=== PATIENT | female | born 1945 | race Caucasian/White ===

== ENCOUNTER 2019-06-10 15:12 | Emergency (ER) | payer MEDICARE, OTHER ==
[~2019-06-10] VITALS: Ht 172.7 cm; Wt 109.1 kg
[2019-06-10] MEDS ORDERED: ACETAMINOPHEN 500 MG TAB (TYLENOL) PO ONE (15:45)
--- NOTE | 2019-06-10 15:47 | Diagnostic Imaging Report ---
INDICATION: Fall with left wrist pain. TIME OF EXAM: 3:20 p.m. FINDINGS: Three views of the left wrist were obtained. There is a fracture extending through the styloid of the distal radius. Fracture line extends into the articular surface of the radiocarpal joint. Distal ulna is intact. Carpus and metacarpals are intact. IMPRESSION: Radial styloid fracture with intra-articular extension. Dictated by: Dictated on workstation # [id number]
--- NOTE | 2019-06-10 16:04 | ED Upper Extremity ---
General Chief Complaint: Upper Extremity Stated Complaint: FALL; LT WRIST INJ Nursing Triage Note: Patient reports she was carrying her great-grandchild up steps to a house when she slipped and fell, landing on her left wrist. Superficial scrapes present to right arm and left knee, patient states she cannot remember the date of her last tetanus shot. Nursing Sepsis Screen: No Definite Risk Source: patient Exam Limitations: no limitations History of Present Illness Date Seen by Provider: Jun 10, 2019 Time Seen by Provider: 15:20 Initial Comments The patient is a pleasant 73-year-old female presents for evaluation of a left wrist injury. She states that she was carrying her great-grandchild upstairs to the front of a house when she slipped and landed on the left wrist. Fortunately the child is okay. She does have some superficial abrasions but no laceration. Her pain is primarily on the thumb side of the wrist. She is able to flex and extend but has some discomfort when doing so with the wrist. She denies any other injuries or complaints and did not hit her head or lose consciousness. She is alert and oriented 4, calm, and appears to be in no distress this time. Onset: just prior to arrival Severity: moderate Pain/Injury Location: left wrist Method of Injury: fell Modifying Factors: Improves With Cold Therapy (makes it better), Improves With Movement (makes it worse) Allergies and Home Medications Allergies Coded Allergies: Penicillins (Verified Allergy, Unknown, 06/10/19) adhesive tape (Verified Allergy, Unknown, 06/10/19) amoxicillin (Verified Allergy, Unknown, 06/10/19) celecoxib (Verified Allergy, Unknown, 06/10/19) dapsone (Verified Allergy, Unknown, 06/10/19) succinylcholine (Verified Allergy, Unknown, 06/10/19) Patient Home Medication List Home Medication List Reviewed: Yes Review of Systems Constitutional: no symptoms reported EENTM: no symptoms reported Respiratory: no symptoms reported Cardiovascular: no symptoms reported Gastrointestinal: no symptoms reported Genitourinary: no symptoms reported Musculoskeletal: joint pain (left wrist) Skin: no symptoms reported Psychiatric/Neurological: No Symptoms Reported All Other Systems Reviewed Negative Unless Noted: Yes Past Jilkugy-Itudnc-Ibkreb Hx Patient Social History Alcohol Use: Denies Use Recreational Drug Use: No Smoking Status: Never a Smoker 2nd Hand Smoke Exposure: No Recent Foreign Travel: No Contact w/Someone Who Travel: No Recent Infectious Disease Expo: No Recent Hopitalizations: No Physical Abuse: No Sexual Abuse: No Mistreated: No Fear: No Immunizations Up To Date Tetanus Booster (TDap): More than 5yrs Seasonal Allergies Seasonal Allergies: No Past Medical History Surgeries: Yes (bilateral knee replacements, carpal tunnel) Hysterectomy, Orthopedic Respiratory: No Cardiac: Yes (CHF) 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 oz. kg; 36.00 BMI Method: General Appearance: WD/WN, no apparent distress HEENT: PERRL/EOMI, pharynx normal Neck: non-tender, full range of motion, supple, normal inspection Cardiovascular: regular rate, rhythm, no edema, no JVD Respiratory: chest non-tender, lungs clear, normal breath sounds, no respiratory distress Back: normal inspection, no CVA tenderness, no vertebral tenderness Shoulder: normal inspection, non-tender, no evidence of injury, normal ROM Elbow/Forearm: normal inspection, non-tender, no evidence of injury, normal ROM, Right, Left Wrist: Yes bone tenderness (over right dorsal radial-side of wrist, no deformity or dislocation seen, no significant swelling or bruising is noted, full range of motion is present with some discomfort, CMS intact distally) Hand: normal inspection, non-tender, no evidence of injury, normal ROM 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, no motor/sensory deficits, alert, normal mood/affect, oriented x 3 Skin: normal color, warm/dry Progress/Results/Core Measures Results/Orders My Orders Orders - RAMONA MARY DO Wrist 3 View Left (06/10/19 15:32) Ice: Apply To Affected Area (06/10/19 15:32) Acetaminophen Tablet (Tylenol Tablet) (06/10/19 15:45) Vital Signs/I&O 06/10/19 15:15 Temp 36.8 Pulse 63 Resp 20 B/P (MAP) 156/90 (112) Pulse Ox 95 O2 Delivery Room Air Blood Pressure Mean: 112 POS Progress Progress Note : Progress Note @1600 - patient informed of x-ray results which show an intra-articular distal radial fracture without any significant displacement and spica splint will be given orthopedics for follow-up with Dr. Barney. Advised patient to follow up with him in the next 1-2 days. The patient will go home with a prescription for [place] as needed for pain relief. She has 2 return to the emergency Department immediately for new or worsening symptoms. The patient expresses verbal understanding and agreement with the plan and is stable for discharge at this time. Diagnostic Imaging Diagonstic Imaging: Xray Comments [facility]. [place], [place] POS NAME: NOEMÍ MASTERSON [facility] REC#: [id number] PT STATUS: REG ER : 1945 PHYSICIAN: RAMONA MARY DO ADMIT DATE: 06/10/19/ER FS Draft POSDate of Exam:06/10/19 WRIST 3 VIEW LEFT INDICATION: Fall with left wrist pain. TIME OF EXAM: 3:20 p.m. FINDINGS: Three views of the left wrist were obtained. There is a fracture extending through the styloid of the distal radius. Fracture line extends into the articular surface of the radiocarpal joint. Distal ulna is intact. Carpus and metacarpals are intact. IMPRESSION: Radial styloid fracture with intra-articular extension. Dictated on workstation # [id number] Dict: 06/10/19 1545 Trans: 06/10/19 1547 [id number] Interpreted by: SAAD JOHNSTON MD Electronically signed by: Departure Impression Primary Impression: Distal radius fracture, left Disposition: 01 HOME, SELF-CARE Condition: Stable Departure-Patient Inst. Decision time for Depature: 16:08 Referrals: DEMETRIA VANN MD (PCP/Family) Primary Care Physician Patient Instructions: Wrist Fracture (DC), Radius Fracture (DC) Add. Discharge Instructions: Follow-up with Dr. Barney from orthopedics in the next 1-2 days. Wear the splint provided for comfort and to protect the injury. Return to the emergency Department immediately for new or worsening symptoms. Take the prescribed medicine as directed, as needed for pain relief. Scripts Hydrocodone Bit/Acetaminophen (Hydrocodone/Acetaminophen 5/325mg Tablet) 1 Tab Tab 1-2 EACH PO Q6H PRN for PAIN-MODERATE MDD 10 for 4 Days, #12 TAB 0 Refills Prov: RAMONA MARY DO 06/10/19 RAMONA MARY DO Jun 10, 2019 16:04 POS
[2019-06-10] MEDS ORDERED: ACHD5005 PO (16:10)
[2019-06-10 16:21] VITALS: BP 156/90
== END 2019-06-10 16:25 | disposition home or self-care (01) ==
LOC: ER FS 15:14
DX: S52.502A Unspecified fracture of the lower end of left radius, initial encounter for closed fracture (principal); I11.0 Hypertensive heart disease with heart failure; I50.9 Heart failure, unspecified; Z88.0 Allergy status to penicillin; Z88.8 Allergy status to other drugs, medicaments and biological substances; Z96.653 Presence of artificial knee joint, bilateral; Z88.6 Allergy status to analgesic agent; Z90.710 Acquired absence of both cervix and uterus; W01.0XXA Fall on same level from slipping, tripping and stumbling without subsequent striking against object, initial encounter
CPT/HCPCS: 73110

== ENCOUNTER → 2019-09-23 | Outpatient (CLI) | payer MEDICARE ==
[~2019-09-23] MED LIST: ACHD5005 PO
[2019-09-23 08:49] LABS: HEMOGLOBIN 12.7 G/DL (11.5-16.0); MEAN CORPUSCULAR HEMOGLOBIN 31 PG (25-34); WHITE BLOOD COUNT 6.1 10^3/uL (4.3-11.0)
[2019-09-23 08:50] LABS: BASOPHILS % (AUTO) 1 % (0-10); EOSINOPHILS # (AUTO) 0.1 10^3/uL (0.0-0.3); EOSINOPHILS % (AUTO) 2 % (0-10); HEMATOCRIT 39 % (35-52); LYMPHOCYTES # (AUTO) 1.6 X 10^3 (1.0-4.0); LYMPHOCYTES % (AUTO) 26 % (12-44); MEAN CORPUSCULAR HGB CONC 32 G/DL (32-36); MEAN CORPUSCULAR VOLUME 97 FL (80-99); MEAN PLATELET VOLUME 11.3 FL (7.4-10.4); MONOCYTES # (AUTO) 0.4 X 10^3 (0.0-1.0); MONOCYTES % (AUTO) 7 % (0-12); NEUTROPHILS # (AUTO) 3.9 X 10^3 (1.8-7.8); NEUTROPHILS % (AUTO) 64 % (42-75); PLATELET COUNT 142 10^3/uL (130-400); RED CELL DISTRIBUTION WIDTH 13.8 % (10.0-14.5)
[2019-09-23 09:07] LABS: SODIUM 142 MMOL/L (135-145)
[2019-09-23 09:08] LABS: ALANINE AMINOTRANSFERASE 10 U/L (0-55); ALBUMIN 4.3 GM/DL (3.2-4.5); ALKALINE PHOSPHATASE 65 U/L (40-136); BILIRUBIN,TOTAL 0.3 MG/DL (0.1-1.0); BUN/CREATININE RATIO 26; CALCIUM 9.7 MG/DL (8.5-10.1); CARBON DIOXIDE 28 MMOL/L (21-32); CHLORIDE 104 MMOL/L (98-107); CREATININE SERUM 0.88 MG/DL (0.60-1.30); GFR ESTIMATED > 60; GLUCOSE 97 MG/DL (70-105); POTASSIUM 4.7 MMOL/L (3.6-5.0); TOTAL PROTEIN 6.9 GM/DL (6.4-8.2)
[2019-09-23 15:39] LABS: CHOLESTEROL 165 MG/DL (< 200); HDL CHOLESTEROL 53 MG/DL (40-60); TRIGLYCERIDES 93 MG/DL (<150); VLDL CHOLESTEROL 19 MG/DL (5-40)
== END ==
LOC: LAB FS 08:23
PROVIDERS: ATTEND Family Medicine
DX: D64.9 Anemia, unspecified (principal); I10 Essential (primary) hypertension
CPT/HCPCS: 36415; 80053; 80061; 85025

== ENCOUNTER → 2020-03-31 | Outpatient (CLI) | payer MEDICARE ==
[2020-03-31 10:01] LABS: ALBUMIN 4.2 GM/DL (3.2-4.5); BILIRUBIN,TOTAL 0.3 MG/DL (0.1-1.0); CALCIUM 9.8 MG/DL (8.5-10.1); CREATININE SERUM 0.93 MG/DL (0.60-1.30); POTASSIUM 4.6 MMOL/L (3.6-5.0); TOTAL PROTEIN 6.5 GM/DL (6.4-8.2)
== END ==
LOC: LAB FS 09:18
PROVIDERS: ATTEND Family Medicine
DX: I10 Essential (primary) hypertension (principal)
CPT/HCPCS: 36415; 80053; 80061

== ENCOUNTER → 2020-12-29 | Outpatient (CLI) | payer MEDICARE ==
[2020-12-29 09:31] LABS: ALANINE AMINOTRANSFERASE 12 U/L (0-55); ALBUMIN 4.1 GM/DL (3.2-4.5); ALKALINE PHOSPHATASE 63 U/L (40-136); BILIRUBIN,TOTAL 0.2 MG/DL (0.1-1.0); BUN/CREATININE RATIO 18; CALCIUM 9.2 MG/DL (8.5-10.1); CARBON DIOXIDE 24 MMOL/L (21-32); CHLORIDE 110 MMOL/L (98-107); CREATININE SERUM 0.89 MG/DL (0.60-1.30); GFR ESTIMATED > 60; GLUCOSE 96 MG/DL (70-105); POTASSIUM 3.9 MMOL/L (3.6-5.0); SODIUM 145 MMOL/L (135-145); TOTAL PROTEIN 6.4 GM/DL (6.4-8.2)
[2020-12-29 10:06] LABS: BASOPHILS % (AUTO) 0 % (0-10); EOSINOPHILS % (AUTO) 3 % (0-10); HEMATOCRIT 30 % (35-52); HEMOGLOBIN 8.9 G/DL (11.5-16.0); LYMPHOCYTES % (AUTO) 24 % (12-44); MEAN CORPUSCULAR HEMOGLOBIN 26 PG (25-34); MEAN CORPUSCULAR HGB CONC 30 G/DL (32-36); MEAN CORPUSCULAR VOLUME 87 FL (80-99); MEAN PLATELET VOLUME 11.6 FL (7.4-10.4); MONOCYTES % (AUTO) 8 % (0-12); NEUTROPHILS % (AUTO) 64 % (42-75); PLATELET COUNT 162 10^3/uL (130-400); WHITE BLOOD COUNT 5.5 10^3/uL (4.3-11.0)
[2020-12-29 10:07] LABS: EOSINOPHILS # (AUTO) 0.2 10^3/uL (0.0-0.3); LYMPHOCYTES # (AUTO) 1.3 X 10^3 (1.0-4.0); MONOCYTES # (AUTO) 0.5 X 10^3 (0.0-1.0); NEUTROPHILS # (AUTO) 3.5 X 10^3 (1.8-7.8)
[2020-12-29 10:08] LABS: SMEAR SCAN COMMENT OK
[2020-12-29 14:51] LABS: CHOLESTEROL 102 MG/DL (< 200); HDL CHOLESTEROL 45 MG/DL (40-60); TRIGLYCERIDES 68 MG/DL (<150); VLDL CHOLESTEROL 14 MG/DL (5-40)
== END ==
LOC: LAB FS 08:24
PROVIDERS: ATTEND Family Medicine
DX: I10 Essential (primary) hypertension (principal); D64.9 Anemia, unspecified
CPT/HCPCS: 36415; 80053; 80061; 85025

== ENCOUNTER → 2021-05-23 | Outpatient (CLI) | payer MEDICARE ==
[~2021-05-23] MED LIST changes: +ACETAMINOPHEN 500 MG TAB (TYLENOL) PO PRN; +CASIRIVIMAB/IMDEVIMAB 1,200 MG in NS (IVPB) 250 ML IV ONE; +EPINEPHrine INJECTION 1 MG/ML AMP IM PRN; +ONDANSETRON 4 MG/2 ML (SDV) Z0FRAN IV PRN; +diphenhydrAMINE 50 MG/ML INJ (BENADRYL) IV PRN
[2021-05-23 11:58] VITALS: BP 138/113
[2021-05-23 13:36] VITALS: BP 110/77
== END ==
LOC: INFUSION 11:57
PROVIDERS: ATTEND Nurse Practitioner Family
DX: U07.1 COVID-19 (principal)

== ENCOUNTER → 2021-07-01 | Outpatient (CLI) | payer MEDICARE ==
[~2021-07-01] MED LIST changes: -ACETAMINOPHEN 500 MG TAB (TYLENOL) PO PRN; -CASIRIVIMAB/IMDEVIMAB 1,200 MG in NS (IVPB) 250 ML IV ONE; -EPINEPHrine INJECTION 1 MG/ML AMP IM PRN; -ONDANSETRON 4 MG/2 ML (SDV) Z0FRAN IV PRN; -diphenhydrAMINE 50 MG/ML INJ (BENADRYL) IV PRN
[2021-07-01 10:07] LABS: HEMATOCRIT 41 % (35-52); HEMOGLOBIN 13.4 g/dL (11.5-16.0); MEAN CORPUSCULAR HEMOGLOBIN 32 pg (25-34); MEAN CORPUSCULAR HGB CONC 32 g/dL (32-36); MEAN CORPUSCULAR VOLUME 99 fL (80-99); WHITE BLOOD COUNT 5.9 10^3/uL (4.3-11.0)
[2021-07-01 10:08] LABS: BASOPHILS % (AUTO) 1 % (0-10); EOSINOPHILS % (AUTO) 2 % (0-10); LYMPHOCYTES % (AUTO) 27 % (12-44); MEAN PLATELET VOLUME 12.1 fL (9.0-12.2); MONOCYTES % (AUTO) 8 % (0-12); NEUTROPHILS % (AUTO) 63 % (42-75); PLATELET COUNT 130 10^3/uL (130-400)
[2021-07-01 10:09] LABS: EOSINOPHILS # (AUTO) 0.1 10^3/uL (0.0-0.3); LYMPHOCYTES # (AUTO) 1.6 X 10^3 (1.0-4.0); MONOCYTES # (AUTO) 0.5 X 10^3 (0.0-1.0); NEUTROPHILS # (AUTO) 3.7 X 10^3 (1.8-7.8)
[2021-07-01 10:37] LABS: POTASSIUM 4.4 MMOL/L (3.6-5.0)
[2021-07-01 10:38] LABS: ALBUMIN 4.2 GM/DL (3.2-4.5); BILIRUBIN,TOTAL 0.5 MG/DL (0.1-1.0); CALCIUM 9.8 MG/DL (8.5-10.1); CREATININE SERUM 0.86 MG/DL (0.60-1.30)
[2021-07-01 14:57] LABS: CHOLESTEROL 191 MG/DL (< 200); HDL CHOLESTEROL 54 MG/DL (40-60); TRIGLYCERIDES 117 MG/DL (<150); VLDL CHOLESTEROL 23 MG/DL (5-40)
== END ==
LOC: LAB FS 09:02
PROVIDERS: ATTEND Family Medicine
DX: I10 Essential (primary) hypertension (principal); D64.9 Anemia, unspecified
CPT/HCPCS: 36415; 80053; 80061; 85025

== ENCOUNTER → 2021-10-20 | Outpatient (CLI) | payer MEDICARE | LOC: LAB FS 10:49 | PROVIDERS: ATTEND Family Medicine | DX: Z00.00 Encounter for general adult medical examination without abnormal findings (principal); M25.50 Pain in unspecified joint; M32.9 Systemic lupus erythematosus, unspecified; M10.9 Gout, unspecified; M21.969 Unspecified acquired deformity of unspecified lower leg | CPT/HCPCS: 36415; 84550; 86038; 86200 ==

== ENCOUNTER → 2021-12-01 | Outpatient (CLI) | payer MEDICARE ==
--- NOTE | 2021-12-01 11:38 | Diagnostic Imaging Report ---
INDICATION: Pain EXAMINATION: Left shoulder 12/01/2021 FINDINGS: 3 views of the shoulder. There is irregularity spurring and sclerosis at the greater tuberosity consistent with tricuspid adenopathy. Narrowing and spurring at the acromioclavicular joint is also noted. There are no fractures or dislocations. The visualized left lung is clear IMPRESSION: 1. Chronic findings with no acute osseous abnormality. Dictated by: Dictated on workstation # [id number]
== END ==
LOC: RAD FS 10:52
PROVIDERS: ATTEND Registered Nurse Emergency
DX: M25.512 Pain in left shoulder (principal)
CPT/HCPCS: 73030

== ENCOUNTER → 2022-01-03 | Outpatient (CLI) | payer MEDICARE ==
[2022-01-03 11:57] LABS: ALBUMIN 4.2 GM/DL (3.2-4.5); BILIRUBIN,TOTAL 0.4 MG/DL (0.1-1.0); CALCIUM 9.9 MG/DL (8.5-10.1); CREATININE SERUM 0.88 MG/DL (0.60-1.30); POTASSIUM 4.6 MMOL/L (3.6-5.0); TOTAL PROTEIN 6.7 GM/DL (6.4-8.2)
[2022-01-03 13:55] LABS: URIC ACID 5.8 MG/DL (2.6-7.2)
== END ==
LOC: LAB FS 09:06
PROVIDERS: ATTEND Family Medicine
DX: E78.5 Hyperlipidemia, unspecified (principal); I10 Essential (primary) hypertension; M10.9 Gout, unspecified; M25.512 Pain in left shoulder
CPT/HCPCS: 36415; 80053; 80061; 84550

== ENCOUNTER → 2022-01-19 | Outpatient (CLI) | payer MEDICARE | LOC: ORTHO 15:31 | PROVIDERS: ATTEND Orthopaedic Surgery | DX: M75.102 Unspecified rotator cuff tear or rupture of left shoulder, not specified as traumatic (principal) ==

== ENCOUNTER → 2022-01-31 | Outpatient (CLI) | payer MEDICARE ==
--- NOTE | 2022-01-31 11:21 | Diagnostic Imaging Report ---
MRI LT UPPER EXT JOINT W/O TECHNIQUE: Multiplanar, multisequence MR imaging of the left shoulder was performed without contrast. COMPARISON: Left shoulder radiographs from 12/01/2021. INDICATION: Left shoulder pain. FINDINGS: Rotator cuff: Full-thickness and complete tears are present in the supraspinatus and infraspinatus and both have proximal stump retracted to the level of the glenohumeral joint. Severe fatty infiltration throughout the supraspinatus and infraspinatus is present. Teres minor remains intact and normal in bulk. The subscapularis is also intact with mild tendinopathy, but no atrophy. Glenoid labrum: Free edge truncation in the superior and posterior labrum is likely due to degenerative tearing. No paralabral cyst. Long head of biceps: Long head of biceps is normally positioned within the bicipital groove. The intracapsular segment is intact. Bones and cartilage: High-riding humeral head due to chronic superior rotator cuff tear. Glenohumeral articular cartilage is fairly well preserved. Mild AC joint osteoarthritis. Soft tissues: Small glenohumeral joint effusion. No MRI findings to suggest adhesive capsulitis. Fluid in the subacromion and subdeltoid space is expected with full-thickness rotator cuff tear. IMPRESSION: 1. Full-thickness and complete tears of both the supraspinatus and infraspinatus have the proximal stumps retracted to the level of the glenohumeral joint and there is severe muscle belly atrophy. 2. Long head of biceps remains intact. 3. High-riding humeral head due to chronic superior rotator cuff tear. 4. Degenerative truncation in the superior labrum. Dictated by: Dictated on workstation # [id number]
== END ==
LOC: RAD 07:57
PROVIDERS: ATTEND Orthopaedic Surgery
DX: M75.122 Complete rotator cuff tear or rupture of left shoulder, not specified as traumatic (principal); S46.812A Strain of other muscles, fascia and tendons at shoulder and upper arm level, left arm, initial encounter; M19.012 Primary osteoarthritis, left shoulder; X58.XXXA Exposure to other specified factors, initial encounter
CPT/HCPCS: 73221

== ENCOUNTER 2022-03-28 06:57 | Inpatient (IN) | payer MEDICARE ==
[~2022-03-28] VITALS: Ht 167.7 cm; Wt 117.4 kg
[2022-03-28] VITALS (15 sets, daily range): BP systolic 104–146; BP diastolic 57–92
--- NOTE | 2022-03-28 07:19 | ED Dyspnea ---
General Stated Complaint: SOB History of Present Illness Date Seen by Provider: Mar 28, 2022 Time Seen by Provider: 07:05 Initial Comments 76-year-old female with PMH of atrial fibrillation/CHF/CAD/COPD, is brought in by EMS with complaints of increasing shortness of breath which began about 1 or 2 days ago. Patient had a left shoulder replacement last week, and has slowly become more mobile. Denies cough, fever, chest pain, palpitation, abdominal pain, nausea and vomiting, diarrhea. No known sick contacts. Patient has not been taking her Lasix for the past 1 week after surgery, since she did not want to keep getting up to urinate. Allergies and Home Medications Allergies Coded Allergies: Penicillins (Verified Allergy, Unknown, 06/10/19) adhesive tape (Verified Allergy, Unknown, 06/10/19) amoxicillin (Verified Allergy, Unknown, 06/10/19) celecoxib (Verified Allergy, Unknown, 06/10/19) dapsone (Verified Allergy, Unknown, 06/10/19) succinylcholine (Verified Allergy, Unknown, 06/10/19) Patient Home Medication List Home Medication List Reviewed: Yes Hydrocodone Bit/Acetaminophen (Lortab 5 Mg Tablet) 1 Tab Tab, 1-2 EACH PO Q6H PRN for PAIN-MODERATE Prescribed by: RAMONA MARY on 06/10/19 1610 Review of Systems Review of Systems Constitutional: no symptoms reported EENTM: no symptoms reported Respiratory: short of breath Cardiovascular: no symptoms reported Gastrointestinal: no symptoms reported Genitourinary: no symptoms reported Musculoskeletal: no symptoms reported Skin: no symptoms reported Psychiatric/Neurological: No Symptoms Reported Endocrine: No Symptoms Reported Hematologic/Lymphatic: No Symptoms Reported Past Qgxozfy-Svvsaf-Uiudep Hx Immunizations Up To Date Tetanus Booster (TDap): More than 5yrs Seasonal Allergies Seasonal Allergies: No Past Medical History Surgeries: Yes (bilateral knee replacements, carpal tunnel) Hysterectomy, Orthopedic Respiratory: No 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 oz. kg; 36.00 BMI Method: General Appearance: No Apparent Distress, WD/WN HEENT: PERRL/EOMI Neck: Full Range of Motion Respiratory: Chest Non Tender, Lungs Clear, Normal Breath Sounds, No Accessory Muscle Use, No Respiratory Distress Cardiovascular: Regular Rate, Rhythm, No Edema Gastrointestinal: Normal Bowel Sounds, Non Tender, Soft Neurologic/Psychiatric: Alert, Oriented x3, Normal Mood/Affect Skin: Normal Color Focused Exam Lactate Level 03/28/22 07:27: Lactic Acid Level 1.09 Lactic Acid Level Laboratory Tests Test 03/28/22 07:27 Lactic Acid Level 1.09 MMOL/L (0.50-2.00) Progress/Results/Core Measures Results/Orders Lab Results Laboratory Tests Test 03/28/22 07:15 03/28/22 07:27 03/28/22 07:29 03/28/22 08:34 Range/Units White Blood Count 11.9 H 4.3-11.0 10^3/uL Red Blood Count 3.41 L 3.80-5.11 10^6/uL Hemoglobin 10.9 L 11.5-16.0 g/dL Hematocrit 33 L 35-52 % Mean Corpuscular Volume 97 80-99 fL Mean Corpuscular Hemoglobin 32 25-34 pg Mean Corpuscular Hemoglobin Concent 33 32-36 g/dL Red Cell Distribution Width 14.1 10.0-14.5 % Platelet Count 208 130-400 10^3/uL Mean Platelet Volume 10.9 9.0-12.2 fL Immature Granulocyte % (Auto) 0 % Neutrophils (%) (Auto) 85 H 42-75 % Lymphocytes (%) (Auto) 9 L 12-44 % Monocytes (%) (Auto) 5 0-12 % Eosinophils (%) (Auto) 1 0-10 % Basophils (%) (Auto) 0 0-10 % Neutrophils # (Auto) 10.1 H 1.8-7.8 10^3/uL Lymphocytes # (Auto) 1.1 1.0-4.0 10^3/uL Monocytes # (Auto) 0.6 0.0-1.0 10^3/uL Eosinophils # (Auto) 0.1 0.0-0.3 10^3/uL Basophils # (Auto) 0.0 0.0-0.1 10^3/uL Immature Granulocyte # (Auto) 0.1 0.0-0.1 10^3/uL Prothrombin Time 13.1 12.2-14.7 SEC INR Comment 1.0 0.8-1.4 Activated Partial Thromboplast Time 26 24-35 SEC D-Dimer 3.53 H 0.00-0.49 UG/ML Sodium Level 139 135-145 MMOL/L Potassium Level 4.7 3.6-5.0 MMOL/L Chloride Level 102 98-107 MMOL/L Carbon Dioxide Level 28 21-32 MMOL/L Anion Gap 9 5-14 MMOL/L Blood Urea Nitrogen 18 7-18 MG/DL Creatinine 0.82 0.60-1.30 MG/DL Estimat Glomerular Filtration Rate 75 BUN/Creatinine Ratio 22 Glucose Level 120 H 70-105 MG/DL Calcium Level 9.7 8.5-10.1 MG/DL Corrected Calcium 10.0 8.5-10.1 MG/DL Magnesium Level 1.6 1.6-2.4 MG/DL Total Bilirubin 0.6 0.1-1.0 MG/DL Aspartate Amino Transf (AST/SGOT) 15 5-34 U/L Alanine Aminotransferase (ALT/SGPT) 12 0-55 U/L Alkaline Phosphatase 83 40-136 U/L Troponin I < 0.30 <0.30 NG/ML Pro-B-Type Natriuretic Peptide 3601.0 H <450.0 PG/ML Total Protein 6.3 L 6.4-8.2 GM/DL Albumin 3.6 3.2-4.5 GM/DL Lactic Acid Level 1.09 0.50-2.00 MMOL/L Influenza Type A (RT-PCR) Not Detected Not Detecte Influenza Type B (RT-PCR) Not Detected Not Detecte SARS-CoV-2 RNA (RT-PCR) Not Detected Not Detecte Urine Color YELLOW Urine Clarity CLEAR Urine pH 7.0 5-9 Urine Specific [place] 1.015 L 1.016-1.022 Urine Protein NEGATIVE NEGATIVE Urine Glucose (UA) NEGATIVE NEGATIVE Urine Ketones NEGATIVE NEGATIVE Urine Nitrite NEGATIVE NEGATIVE Urine Bilirubin NEGATIVE NEGATIVE Urine Urobilinogen 0.2 < = 1.0 MG/DL Urine Leukocyte Esterase NEGATIVE NEGATIVE Urine RBC (Auto) NEGATIVE NEGATIVE Urine RBC NONE /HPF Urine WBC NONE /HPF Urine Squamous Epithelial Cells 0-2 /HPF Urine Crystals NONE /LPF Urine Bacteria NEGATIVE /HPF Urine Casts NONE /LPF Urine Mucus NEGATIVE /LPF Urine Culture Indicated NO My Orders Orders - ZAIRA MIXON MD Chest 1 View Ap/Pa Only (03/28/22 07:19) Ekg Tracing (03/28/22 07:20) Continuous Ekg Monitoring (03/28/22 07:20) Cbc With Automated Diff (03/28/22 07:20) Comprehensive Metabolic Panel (03/28/22 07:20) Fibrin Degradation Products (03/28/22 07:20) Lactic Acid Analyzer (03/28/22 07:20) Magnesium (03/28/22 07:20) Procalcitonin (Pct) (03/28/22 07:20) Protime With Inr (03/28/22 07:20) Partial Thromboplastin Time (03/28/22 07:20) Ua Culture If Indicated (03/28/22 07:20) Probnp Fs (03/28/22 07:20) Troponin I Fs (03/28/22 07:20) Covid 19 Inhouse Test (03/28/22 07:21) Influenza A And B By Pcr (03/28/22 07:21) Albuterol/Ipra Inhalation Soln (Duoneb I (03/28/22 07:30) Methylprednisolone Sod Succ (Solu-Medrol (03/28/22 07:22) Svn Small Volume Nebulizer (03/28/22 07:22) Furosemide Injection (Lasix Injection) (03/28/22 07:45) Ondansetron Injection (Zofran Injectio (03/28/22 07:59) Ct Angio Chest W (03/28/22 08:07) Iohexol Injection (Omnipaque 350 Mg/Ml 1 (03/28/22 08:15) Received Contrast (Hold Metformin- Contr (03/28/22 08:15) Ns (Ivpb) (Sodium Chloride 0.9% Ivpb Bag (03/28/22 08:15) Sodium Chloride Flush (Catheter Flush Sy (03/28/22 08:15) Furosemide Injection (Lasix Injection) (03/28/22 09:00) Catheter(Urinary) Insert & Ass 03,15 (03/28/22 09:43) Ed Admission (Communication) (03/28/22 09:49) Medications Given in ED Current Medications Medications Dose Ordered Sig/Sherly Route Start Time Stop Time Status Last Admin Dose Admin Albuterol/ Ipratropium 3 ml ONCE ONCE INH 03/28/22 07:30 03/28/22 07:31 DC 03/28/22 07:35 3 ML Furosemide 20 mg ONCE ONCE IVP 03/28/22 09:00 03/28/22 09:01 DC 03/28/22 09:00 20 MG Furosemide 60 mg ONCE ONCE IVP 03/28/22 07:45 03/28/22 07:47 DC 03/28/22 08:01 60 MG Iohexol 125 ml ONCE ONCE IV 03/28/22 08:15 03/28/22 08:16 DC 03/28/22 08:54 125 ML Ondansetron HCl 4 mg STK-MED ONCE .ROUTE 03/28/22 07:59 03/28/22 08:03 DC 03/28/22 08:05 4 MG Sodium Chloride 10 ml NEEDED PRN IV 03/28/22 08:15 03/28/22 08:54 10 ML Sodium Chloride 100 ml ONCE ONCE IV 03/28/22 08:15 03/28/22 08:16 DC 03/28/22 08:55 80 ML Vital Signs/I&O 03/28/22 07:00 Temp 36.8 Pulse 89 Resp 23 B/P (MAP) 152/86 (108) Pulse Ox 93 O2 Delivery Room Air Progress Progress Note : Progress Note 1. PULMONARY EDEMA/ ACUTE CHF EXACERBATION: - CXR: see report - CBC/ CMP - UA neg - Duo Neb/ Solumedrol 125mg iv given initially upon presentation to ER - Lasix, total of 80mg iv given, serum albumin normal, with good urine output as a result - Pt lives at home with her who has dementia, and has not been taking her Lasix for the past 1 week due to having shoulder surgery last week, and she did not want to keep going to the bathroom. Explained to pt, the importance of taking Lasix as prescribed. Will benefit from admission to observation for d iuresis and cardiology consult 2. ELEVATED D-DIMER - D-dimer is 3.53 - CTA CHEST: - Negative for PE Diagnostic Imaging Diagonstic Imaging: Xray, CT Plain Films/CT/US/NM/MRI: chest Comments [facility]. [place], [place] NAME: NOEMÍ MASTERSON [facility] REC#: [id number] PT STATUS: REG ER : 1945 PHYSICIAN: ZAIRA MIXON MD ADMIT DATE: 03/28/22/ER FS Draft Date of Exam:03/28/22 CT ANGIO CHEST W EXAMINATION: CT angiography of the chest. TECHNIQUE: Contrast enhanced thin section helical images were obtained through the chest with intravenous contrast timed for the optimal opacification of the arterial structures per CTA protocol. Post-processing, reconstructions and interpretation of angiographic images of the vessels was performed. 3D MIP reconstructions were performed and reviewed. All CT scans use one or more of the following dose optimizing techniques: automated exposure control, MA and/or KvP adjustment based on a patient size and exam type, or iterative reconstruction. HISTORY: Recent surgery with shortness of breath and elevated D-dimer COMPARISON: None available. FINDINGS: There is no pulmonary embolism. There is moderate pulmonary edema. There is septal line thickening and centrilobular groundglass. There are small bilateral pleural effusions. No pneumothorax. No suspicious nodules. There is no axillary or supraclavicular lymphadenopathy. There is no mediastinal lymphadenopathy. There is a small hiatal hernia. Heart size is normal. There are no coronary artery calcifications. No pericardial effusion. Aorta is normal in caliber. Limited views of the upper abdomen are unremarkable. There are no suspicious osseus lesions. Postsurgical changes of a recent left shoulder arthroplasty. IMPRESSION: 1. No pulmonary embolism. 2. Moderate pulmonary edema and small bilateral pleural effusions. Dictated on workstation # [id number] Dict: 03/28/22 0902 Trans: 03/28/22 0907 CV [id number] Interpreted by: SCOUT BISWAS MD Electronically signed by: Departure Communication (Admissions) Time/Spoke to Admitting Phy: 09:[address] Rico and accepted for admission to observation unit Impression Primary Impression: Acute exacerbation of CHF (congestive heart failure) Qualified Codes: I50.9 - Heart failure, unspecified Additional Impression: Pulmonary edema cardiac cause Disposition: 30 STILL A PATIENT Condition: Stable Admissions Decision to Admit Reason: Admit from ER (General) Decision to Admit/Date: Mar 28, 2022 Time/Decision to Admit Time: 09:20 Transfer Transfer Reason: Exceeds level of care Method of Transfer: EMS Departure-Patient Inst. Referrals: DEMETRIA VANN MD (PCP/Family) Primary Care Physician ZAIRA MIXON MD Mar 28, 2022 07:19
[2022-03-28] MEDS ORDERED: methylPREDNISolone 125 MG (Solu-MEDROL) VIAL IV STA (07:22)
[2022-03-28 07:29] LABS: BASOPHILS % (AUTO) 0 % (0-10); EOSINOPHILS # (AUTO) 0.1 10^3/uL (0.0-0.3); EOSINOPHILS % (AUTO) 1 % (0-10); HEMATOCRIT 33 % (35-52); HEMOGLOBIN 10.9 g/dL (11.5-16.0); LYMPHOCYTES # (AUTO) 1.1 10^3/uL (1.0-4.0); LYMPHOCYTES % (AUTO) 9 % (12-44); MEAN CORPUSCULAR HEMOGLOBIN 32 pg (25-34); MEAN CORPUSCULAR HGB CONC 33 g/dL (32-36); MEAN CORPUSCULAR VOLUME 97 fL (80-99); MEAN PLATELET VOLUME 10.9 fL (9.0-12.2); MONOCYTES # (AUTO) 0.6 10^3/uL (0.0-1.0); MONOCYTES % (AUTO) 5 % (0-12); NEUTROPHILS # (AUTO) 10.1 10^3/uL (1.8-7.8); NEUTROPHILS % (AUTO) 85 % (42-75); PLATELET COUNT 208 10^3/uL (130-400); WHITE BLOOD COUNT 11.9 10^3/uL (4.3-11.0)
[2022-03-28] MEDS ORDERED: RT-ALBUTEROL/IPRATROPIUM 3 ML (DUONEB) VIAL INH ONE (07:30)
--- NOTE | 2022-03-28 07:37 | Diagnostic Imaging Report ---
INDICATION: Shortness of breath. TECHNIQUE: Single view chest 7:24 AM. CORRELATION STUDY: None FINDINGS: Heart size enlarged with vascular congestion. Some fullness of the right hilum. Lung alberto with mildly prominent interstitial markings. No infiltrate. Postoperative changes reversed left shoulder arthroplasty. IMPRESSION: 1. Cardiac enlargement with component of pulmonary vascular congestion and edema. 2. Some fullness of the right hilum. May be owing to projection and of the edema, however short-term follow-up two-view chest imaging is recommended for reassessment. Dictated by: Dictated on workstation # [id number]
[2022-03-28] MEDS ORDERED: FUROSEMIDE 40 MG/4 ML INJ (LASIX) IVP ONE ×2 (07:45→09:00)
[2022-03-28] MEDS ORDERED: ONDANSETRON 4 MG/2 ML (SDV) Z0FRAN ONE (07:59)
[2022-03-28 08:00] LABS: CARBON DIOXIDE 28 MMOL/L (21-32); CHLORIDE 102 MMOL/L (98-107); POTASSIUM 4.7 MMOL/L (3.6-5.0); SODIUM 139 MMOL/L (135-145)
[2022-03-28 08:01] LABS: ALANINE AMINOTRANSFERASE 12 U/L (0-55); ALKALINE PHOSPHATASE 83 U/L (40-136); BILIRUBIN,TOTAL 0.6 MG/DL (0.1-1.0); BUN/CREATININE RATIO 22; CALCIUM 9.7 MG/DL (8.5-10.1); CREATININE SERUM 0.82 MG/DL (0.60-1.30); GFR ESTIMATED 75; GLUCOSE 120 MG/DL (70-105); MAGNESIUM 1.6 MG/DL (1.6-2.4); TOTAL PROTEIN 6.3 GM/DL (6.4-8.2)
[2022-03-28 08:02] LABS: ALBUMIN 3.6 GM/DL (3.2-4.5); FIBRIN DEGRADATION PRODUCTS 3.53 UG/ML (0.00-0.49); PROTHROMBIN TIME PATIENT 13.1 SEC (12.2-14.7)
[2022-03-28] MEDS ORDERED: IOHEXOL 350 MG/ML 100 ML (OMNIPAQUE 350) VIAL IV ONE (08:15)
[2022-03-28] MEDS ORDERED: HOLD METFORMIN - RECEIVED CONTRAST 20 ML VIAL IV SCH (08:15)
[2022-03-28] MEDS ORDERED: NS 100 ML (IVPB) BAG IV ONE (08:15)
[2022-03-28] MEDS ORDERED: CATHETER FLUSH 10 ML SYR IV PRN (08:15)
[2022-03-28 08:36] LABS: BILIRUBIN,URINE NEGATIVE (NEGATIVE); CLARITY,URINE CLEAR; COLOR,URINE YELLOW; GLUCOSE, URINE (UA) NEGATIVE (NEGATIVE); KETONES,URINE NEGATIVE (NEGATIVE); LEUKOCYTE ESTERASE ,URINE NEGATIVE (NEGATIVE); NITRITE,URINE NEGATIVE (NEGATIVE); PROTEIN,URINE NEGATIVE (NEGATIVE)
[2022-03-28 08:42] LABS: BACTERIA,URINE NEGATIVE /HPF; SQUAMOUS EPITHELIAL CELL,UR 0-2 /HPF
--- NOTE | 2022-03-28 09:07 | Diagnostic Imaging Report ---
EXAMINATION: CT angiography of the chest. TECHNIQUE: Contrast enhanced thin section helical images were obtained through the chest with intravenous contrast timed for the optimal opacification of the arterial structures per CTA protocol. Post-processing, reconstructions and interpretation of angiographic images of the vessels was performed. 3D MIP reconstructions were performed and reviewed. All CT scans use one or more of the following dose optimizing techniques: automated exposure control, MA and/or KvP adjustment based on a patient size and exam type, or iterative reconstruction. HISTORY: Recent surgery with shortness of breath and elevated D-dimer COMPARISON: None available. FINDINGS: There is no pulmonary embolism. There is moderate pulmonary edema. There is septal line thickening and centrilobular groundglass. There are small bilateral pleural effusions. No pneumothorax. No suspicious nodules. There is no axillary or supraclavicular lymphadenopathy. There is no mediastinal lymphadenopathy. There is a small hiatal hernia. Heart size is normal. There are no coronary artery calcifications. No pericardial effusion. Aorta is normal in caliber. Limited views of the upper abdomen are unremarkable. There are no suspicious osseus lesions. Postsurgical changes of a recent left shoulder arthroplasty. IMPRESSION: 1. No pulmonary embolism. 2. Moderate pulmonary edema and small bilateral pleural effusions. Dictated by: Dictated on workstation # [id number]
[2022-03-28] MEDS ORDERED: HYDROcodone/APAP 5 MG/325 MG (LORTAB) TAB ONE (10:23)
--- NOTE | 2022-03-28 12:00 | Consultation-Cardiology ---
HPI-Cardiology Cardiology Consultation: Date of Consultation 03/28/22 Time Seen by a Provider: 11:30 Date of Admission 03-28-22 Attending Physician Teresita Enriquez MD Admitting Physician Admitting Physician: Teresa Callejas MD Attending Physician: Teresa Callejas MD Consulting Physician Ana Chavez MD HPI: Chief Complaint: Acute exacerbation of CHF Ms. Masterson is a 76 yr old female admitted to [facility] from the ED with c/o increasing SOB over the course of the last several days. She reports she has not been taking Lasix for "quite some time", but is unsure of exactly how long. She denies any CP, palpitations, syncope or near syncope. She had left rotator cuff surgery 2 weeks ago. She reports her primary physician practice manager is Dr. Nunn at [facility] in [place], [place]. She states her breathing is improving at this time. She has family x2 at the bedside. Review of Systems-Cardiology Review of Systems Constitutional: No chills, No fever, No malaise Eyes: No vision change Ears/Nose/Throat: No epistaxis, No recent hearing loss Respiratory: As described under HPI Cardiovascular: As described under HPI Gastrointestinal: No constipation, No diarrhea, No nausea, No vomiting Genitourinary: No dysuria, No hematuria Musculoskeletal: other (right s) Skin: No rash on exposed areas, No ulcerations on exposed areas Psychiatric/Neurological: No anxiety, No depression, No seizure, No focal weakness, No syncope Hematologic: No bleeding abnormalities EOW-Gflqfr-Lfszsg Hx Patient Social History 2nd Hand Smoke Exposure: No Have you traveled recently?: No Alcohol Use?: No Pt feels they are or have been: No Immunizations Up To Date Tetanus Booster (TDap): More than 5yrs Past Medical History PMH As described under Assessment. Family Medical History Family Medical History: No reported family h/o CAD Allergies and Home Medications Allergies Coded Allergies: Penicillins (Verified Allergy, Unknown, 06/10/19) adhesive tape (Verified Allergy, Unknown, 06/10/19) amoxicillin (Verified Allergy, Unknown, 06/10/19) celecoxib (Verified Allergy, Unknown, 06/10/19) dapsone (Verified Allergy, Unknown, 06/10/19) succinylcholine (Verified Allergy, Unknown, 06/10/19) Patient Home Medication List Hydrocodone Bit/Acetaminophen (Lortab 5 Mg Tablet) 1 Tab Tab, 1-2 EACH PO Q6H PRN for PAIN-MODERATE Prescribed by: RAMONA MARY on 06/10/19 1610 Physical Exam-Cardiology Physical Exam Vital Signs/I&O 03/28/22 03/28/22 03/28/22 03/28/22 07:00 10:28 11:25 11:25 Temp 36.8 Pulse 89 86 80 86 Resp 23 18 23 B/P (MAP) 152/86 (108) 156/77 145/73 (97) Pulse Ox 93 94 95 O2 Delivery Room Air Nasal Cannula Nasal Cannula O2 Flow Rate 2.00 2.00 03/28/22 12:00 Temp 37.7 Capillary Refill : Less Than 3 Seconds Constitutional: AAO x 3, well-developed, well-nourished HEENT: PERRL, hearing is well preserved, oral hygience is good Neck: No carotid bruit; carotid pulses are 2 + bilaterally Respiratory: No accessory muscle use, No respiratory distress; chest expansion is symmetric, chest is bilaterally symmetric, other (bilat diminished breath sounds, R>L) Cardiovascular: regular rate-rhythm; No JVD; S1 and S2, systolic murmur Gastrointestinal: No tender; soft, round, audible bowel sounds Extremities: no lower extremity edema bilateral Neurologic/Psychiatric: grossly intact (moves all extremity) Skin: No rash on exposed areas, No ulcerations on exposed areas Data Review Labs Laboratory Tests 03/28/22 07:15: White Blood Count 11.9H, Red Blood Count 3.41L, Hemoglobin 10.9L, Hematocrit 33L , Mean Corpuscular Volume 97, Mean Corpuscular Hemoglobin 32, Mean Corpuscular Hemoglobin Concent 33, Red Cell Distribution Width 14.1, Platelet Count 208, Mean Platelet Volume 10.9, Immature Granulocyte % (Auto) 0, Neutrophils (%) (Auto) 85H, Lymphocytes (%) (Auto) 9L, Monocytes (%) (Auto) 5, Eosinophils (%) (Auto) 1, Basophils (%) (Auto) 0, Neutrophils # (Auto) 10.1H, Lymphocytes # (Auto) 1.1, Monocytes # (Auto) 0.6, Eosinophils # (Auto) 0.1, Basophils # (Auto) 0.0, Immature Granulocyte # (Auto) 0.1, Prothrombin Time 13.1, INR Comment 1.0, Activated Partial Thromboplast Time 26, D-Dimer 3.53H, Sodium Level 139, Potassium Level 4.7, Chloride Level 102, Carbon Dioxide Level 28, Anion Gap 9, Blood Urea Nitrogen 18, Creatinine 0.82, Estimat Glomerular Filtration Rate 75, BUN/Creatinine Ratio 22, Glucose Level 120H, Calcium Level 9.7, Corrected Calcium 10.0, Magnesium Level 1.6, Total Bilirubin 0.6, Aspartate Amino Transf (AST/SGOT) 15, Alanine Aminotransferase (ALT/SGPT) 12, Alkaline Phosphatase 83, Troponin I < 0.30, Pro-B-Type Natriuretic Peptide 3601.0H, Total Protein 6.3L, Albumin 3.6 03/28/22 07:27: Lactic Acid Level 1.09 03/28/22 07:29: Influenza Type A (RT-PCR) Not Detected, Influenza Type B (RT-PCR) Not Detected, SARS-CoV-2 RNA (RT-PCR) Not Detected 03/28/22 08:34: Urine Color YELLOW, Urine Clarity CLEAR, Urine pH 7.0, Urine Specific [place] 1.015L, Urine Protein NEGATIVE, Urine Glucose (UA) NEGATIVE, Urine Ketones NEGATIVE, Urine Nitrite NEGATIVE, Urine Bilirubin NEGATIVE, Urine Urobilinogen 0.2, Urine Leukocyte Esterase NEGATIVE, Urine RBC (Auto) NEGATIVE, Urine RBC NONE, Urine WBC NONE, Urine Squamous Epithelial Cells 0-2, Urine Crystals NONE, Urine Bacteria NEGATIVE, Urine Casts NONE, Urine Mucus NEGATIVE, Urine Culture Indicated NO Radiology NAME: NOEMÍ MASTERSON [facility] REC#: [id number] PT STATUS: REG ER : 1945 PHYSICIAN: ZAIRA MIXNO MD ADMIT DATE: 03/28/22/ER FS Signed Date of Exam:03/28/22 CHEST 1 VIEW AP/PA ONLY INDICATION: Shortness of breath. TECHNIQUE: Single view chest 7:24 AM. CORRELATION STUDY: None FINDINGS: Heart size enlarged with vascular congestion. Some fullness of the right hilum. Lung alberto with mildly prominent interstitial markings. No infiltrate. Postoperative changes reversed left shoulder arthroplasty. IMPRESSION: 1. Cardiac enlargement with component of pulmonary vascular congestion and edema. 2. Some fullness of the right hilum. May be owing to projection and of the edema, however short-term follow-up two-view chest imaging is recommended for reassessment. Dictated by: Dictated on workstation # [id number] Dict: 03/28/22729 Trans: 03/28/221056 TALA Interpreted by: DOMINIC ALARCON DO Electronically signed by: DOMINIC ALARCON DO 03/28/221056 NAME: NOEMÍ MASTERSON [facility] REC#: [id number] PT STATUS: REG ER : 1945 PHYSICIAN: ZAIRA MIXON MD ADMIT DATE: 03/28/22/ER FS Draft Date of Exam:03/28/22 CT ANGIO CHEST W EXAMINATION: CT angiography of the chest. TECHNIQUE: Contrast enhanced thin section helical images were obtained through the chest with intravenous contrast timed for the optimal opacification of the arterial structures per CTA protocol. Post-processing, reconstructions and interpretation of angiographic images of the vessels was performed. 3D MIP reconstructions were performed and reviewed. All CT scans use one or more of the following dose optimizing techniques: automated exposure control, MA and/or KvP adjustment based on a patient size and exam type, or iterative reconstruction. HISTORY: Recent surgery with shortness of breath and elevated D-dimer COMPARISON: None available. FINDINGS: There is no pulmonary embolism. There is moderate pulmonary edema. There is septal line thickening and centrilobular groundglass. There are small bilateral pleural effusions. No pneumothorax. No suspicious nodules. There is no axillary or supraclavicular lymphadenopathy. There is no mediastinal lymphadenopathy. There is a small hiatal hernia. Heart size is normal. There are no coronary artery calcifications. No pericardial effusion. Aorta is normal in caliber. Limited views of the upper abdomen are unremarkable. There are no suspicious osseus lesions. Postsurgical changes of a recent left shoulder arthroplasty. IMPRESSION: 1. No pulmonary embolism. 2. Moderate pulmonary edema and small bilateral pleural effusions. Dictated on workstation # [id number] Dict: 03/28/22901 Trans: 03/28/22906 CVB Interpreted by: SCOUT BISWAS MD Electronically signed by: ECG Impression ECG Initial ECG Rhythm: Normal Sinus A/P-Cardiology Assessment/Admission Diagnosis Acute on chronic decompensated diastolic CHF Reports h/o Takotsubo Cardiomyopathy - diagnosed 4 yrs ago with reported recovery - Echocardiogram of 03-09-[address] Nunn showed LVEF 55-60% with grade 1 diastolic dysfunction with mild to mod MR, mild LA enlargement; AoV scelrosis with no evidence of stenosis; mild to mod TR Reports one episode of PAF - 4 yrs ago at time of cardiomyopathy dx - no OAC tx - managed by Dr. Nunn Cardiac cath of 01-22-[address] Nunn at [place], [place] - non-obstructive CAD. Mild pulmonary HTN. Elevated LVEDP Chronic LBB - per Dr. Nunn note of 03-09-22 HTN CISCO - unable to tolerate CPAP Surgical hx - bilat knee replacement - cholecystectomy and appy Discussion and Recomendations Acute on chronic decompensated CHF - non-compliant with Lasix at home - IV Lasix Monitor lab - replace electrolytes HTN - continue home medications Request records from Dr. Nunn Continue home medications Further recs will be based on her hospital course We would like to thank Dr. Callejas for this consult KELLEY GARCIA Mar 28, 2022 12:00
--- NOTE | 2022-03-28 14:28 | History & Physical-Hospitalist ---
History of Present Illness HPI/Chief Complaint Patient is a 76-year-old female with past medical history of CHF, hypertension, CAD, COPD who presented to the emergency department due to shortness of breath. She had her shoulder replaced last week and has been at home recovering and feeling more short of breath. She is normally on Lasix but states that it was making her pee too much so after her last prescription she did not refill it. She reported to the emergency department that that was just a week or 2 ago but to me she states it was over a year ago. She was found to have an elevated BNP and pulmonary vascular congestion on imaging and was ad mitted for further management. Source: patient Date Seen 03/28/22 Time Seen by a Provider: 13:10 Attending Physician Teresita Enriquez MD PCP Admitting Physician: Summer Callejas MD Attending Physician: Summer Callejas MD Referring Physician Date of Admission Mar 28, 2022 at 11:17 Home Medications & Allergies Home Medications Reviewed patient Home Medication Reconciliation performed by pharmacy medication reconciliations technician support engineer and/or nursing. Patients Allergies have been reviewed. Allergies Allergies Coded Allergies Penicillins (Verified Allergy, Unknown, 06/10/19) adhesive tape (Verified Allergy, Unknown, 06/10/19) amoxicillin (Verified Allergy, Unknown, 06/10/19) celecoxib (Verified Allergy, Unknown, 06/10/19) dapsone (Verified Allergy, Unknown, 06/10/19) succinylcholine (Verified Allergy, Unknown, 06/10/19) Past Fmkegti-Ewilsi-Iolmlw Hx Patient Social History Marrital Status: Tobacco Use?: No Substance use?: No Alcohol Use?: No Pt feels they are or have been: No Seasonal Allergies Seasonal Allergies: No Current Status Advance Directives: Yes Advance Directive Location: Family to bring in copy Communicates: Verbally Primary Language: Portuguese Preferred Spoken Language: Portuguese Sensory deficits: Vision impairment Implanted or Applied Medical D: Orthopedic hardware Past Medical History Surgeries: Hysterectomy, Orthopedic Cardiomyopathy, Coronary Artery Disease, Hypertension 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 Arthritis Family Medical History Reviewed Nursing Family Hx No Pertinent Family Hx Review of Systems Constitutional: No chills, No fever EENTM: no symptoms reported Respiratory: dyspnea on exertion, orthopnea; No phlegm; short of breath Cardiovascular: No chest pain; edema, Hx of Intervention Gastrointestinal: no symptoms reported Genitourinary: no symptoms reported Musculoskeletal: no symptoms reported Skin: no symptoms reported Psychiatric/Neurological: No Symptoms Reported Physical Exam Physical Exam Vital Signs Vital Signs - First Documented 03/28/22 03/28/22 07:00 10:28 Temp 36.8 Pulse 89 Resp 23 B/P (MAP) 152/86 (108) Pulse Ox 93 O2 Delivery Room Air O2 Flow Rate 2.00 Capillary Refill : Less Than 3 Seconds Height, Weight, BMI Height: '" Weight: lbs. oz. kg; 41.67 BMI Method: General Appearance: No Apparent Distress, Chronically ill, Obese HEENT: PERRL/EOMI, Moist Mucous Membranes; No Scleral Icterus (L), No Scleral Icterus (R) Neck: Normal Inspection, Supple Respiratory: Lungs Clear, No Accessory Muscle Use, No Respiratory Distress Cardiovascular: Regular Rate, Rhythm, No JVD, No Murmur Gastrointestinal: Normal Bowel Sounds, Non Tender, Soft Extremity: Normal Capillary Refill, No Calf Tenderness, No Pedal Edema Neurologic/Psychiatric: Alert, Oriented x3, Normal Mood/Affect Skin: Normal Color, Warm/Dry Results Results/Procedures Labs Laboratory Tests 03/28/22 07:15 Patient resulted labs reviewed. Imaging: Reviewed Imaging Report Imaging [facility] [place] [place] NAME: NOEMÍ MASTERSON [facility] REC#: [id number] PT STATUS: REG ER : 1945 PHYSICIAN: ZAIRA MIXON MD ADMIT DATE: 03/28/22/ER FS Signed Date of Exam:03/28/22 CHEST 1 VIEW AP/PA ONLY INDICATION: Shortness of breath. TECHNIQUE: Single view chest 7:24 AM. CORRELATION STUDY: None FINDINGS: Heart size enlarged with vascular congestion. Some fullness of the right hilum. Lung alberto with mildly prominent interstitial markings. No infiltrate. Postoperative changes reversed left shoulder arthroplasty. IMPRESSION: 1. Cardiac enlargement with component of pulmonary vascular congestion and edema. 2. Some fullness of the right hilum. May be owing to projection and of the edema, however short-term follow-up two-view chest imaging is recommended for reassessment. Dictated by: Dictated on workstation # [id number] Dict: 03/28/22 0730 Trans: 03/28/221056 TALA Interpreted by: DOMINIC ALARCON DO Electronically signed by: DOMINIC ALARCON DO 03/28/221056 [facility] [place] [place] NAME: NOEMÍ MASTERSON [facility] REC#: [id number] PT STATUS: REG ER : 1945 PHYSICIAN: ZAIRA MIXON MD ADMIT DATE: 03/28/22/ER FS Draft Date of Exam:03/28/22 CT ANGIO CHEST W EXAMINATION: CT angiography of the chest. TECHNIQUE: Contrast enhanced thin section helical images were obtained through the chest with intravenous contrast timed for the optimal opacification of the arterial structures per CTA protocol. Post-processing, reconstructions and interpretation of angiographic images of the vessels was performed. 3D MIP reconstructions were performed and reviewed. All CT scans use one or more of the following dose optimizing techniques: automated exposure control, MA and/or KvP adjustment based on a patient size and exam type, or iterative reconstruction. HISTORY: Recent surgery with shortness of breath and elevated D-dimer COMPARISON: None available. FINDINGS: There is no pulmonary embolism. There is moderate pulmonary edema. There is septal line thickening and centrilobular groundglass. There are small bilateral pleural effusions. No pneumothorax. No suspicious nodules. There is no axillary or supraclavicular lymphadenopathy. There is no mediastinal lymphadenopathy. There is a small hiatal hernia. Heart size is normal. There are no coronary artery calcifications. No pericardial effusion. Aorta is normal in caliber. Limited views of the upper abdomen are unremarkable. There are no suspicious osseus lesions. Postsurgical changes of a recent left shoulder arthroplasty. IMPRESSION: 1. No pulmonary embolism. 2. Moderate pulmonary edema and small bilateral pleural effusions. Dictated on workstation # [id number] Dict: 03/28/22901 Trans: 03/28/22906 CVB Interpreted by: SCOUT BISWAS MD Electronically signed by: Assessment/Plan Admission Diagnosis CHF exacerbation Admission Status: Observation Assessment and Plan CHF exacerbation CAD Continue on IV lasix Echo ordered Accurate I/Os Cardiology consulted, appreciate recs Records request from [facility] Hopefully home tomorrow HTN Continue home meds Shoulder replacement PT/OT Diagnosis/Problems Diagnosis/Problems (1) Acute exacerbation of CHF (congestive heart failure) Status: Acute Qualifiers: Heart failure type: unspecified Qualified Codes: I50.9 - Heart failure, unspecified SUMMER CALLEJAS MD Mar 28, 2022 14:28
[2022-03-28] MEDS ORDERED: ALLO100T PO (14:34)
[2022-03-28] MEDS ORDERED: [UNRECOGNIZED DRUG - CODE] PO (14:34)
[2022-03-28] MEDS ORDERED: DULO60CA59 PO (14:34)
[2022-03-28] MEDS ORDERED: METO50TA7 PO (14:34)
[2022-03-28] MEDS ORDERED: RAMI10CA69 PO (14:34)
[2022-03-28] MEDS ORDERED: ASCO-262 PO (14:34)
[2022-03-28] MEDS ORDERED: MTP25TSR PO (14:34)
[2022-03-28] MEDS ORDERED: FOLI200T11 PO (14:34)
[2022-03-28] MEDS ORDERED: HYDR-3820 PO (14:35)
--- NOTE | 2022-03-28 15:03 | Consultation-Cardiology ---
HPI-Cardiology Cardiology Consultation: Date of Consultation 03/28/22 Time Seen by a Provider: 13:30 Date of Admission Attending Physician Teresita Enriquez MD Admitting Physician Admitting Physician: Teresa Callejas MD Attending Physician: Teresa Callejas MD Consulting Physician BUCKY DE LA ROSA MD, MA, FACP, FACC, FSCAI, CCDS Primary manager tax: Dr Moody ([place], [place]) HPI: Chief Complaint: Acute exacerbation of CHF Ms. Koroma is a 76 yr old female admitted to [facility] from the ED with c/o increasing SOB over the course of the last several days. She reports she has not been taking Lasix for "quite some time", but is unsure of exactly how long. She denies any CP, palpitations, syncope or near syncope. She had left rotator cuff surgery 2 weeks ago. She reports her primary manager tax is Dr. Nunn at [facility] in [place], [place]. She states her breathing is improving at this time. She has family x2 at the bedside. Review of Systems-Cardiology Review of Systems Constitutional: No chills, No fever, No malaise Eyes: No vision change Ears/Nose/Throat: No epistaxis, No recent hearing loss Respiratory: As described under HPI Cardiovascular: As described under HPI Gastrointestinal: No constipation, No diarrhea, No nausea, No vomiting Genitourinary: No dysuria, No hematuria Musculoskeletal: other (right s) Skin: No rash on exposed areas, No ulcerations on exposed areas Psychiatric/Neurological: No anxiety, No depression, No seizure, No focal weakness, No syncope Hematologic: No bleeding abnormalities FWF-Awrgvm-Ibhjmu Hx Patient Social History Marrital Status: 2nd Hand Smoke Exposure: No Have you traveled recently?: No Alcohol Use?: No Pt feels they are or have been: No Immunizations Up To Date Tetanus Booster (TDap): More than 5yrs Past Medical History PMH As described under Assessment. Family Medical History Family Medical History: No reported family h/o CAD Allergies and Home Medications Allergies Coded Allergies: Penicillins (Verified Allergy, Unknown, 06/10/19) adhesive tape (Verified Allergy, Unknown, 06/10/19) amoxicillin (Verified Allergy, Unknown, 06/10/19) celecoxib (Verified Allergy, Unknown, 06/10/19) dapsone (Verified Allergy, Unknown, 06/10/19) succinylcholine (Verified Allergy, Unknown, 06/10/19) Patient Home Medication List Home Medication List Reviewed: Yes Allopurinol (Allopurinol) 100 Mg Tablet, 100 MG PO DAILY, (Reported) Entered as Reported by: PEDRO PIERRE on 03/28/221433 Last Action: Continued Ascorbate Calcium (Vitamin C) 500 Mg Tablet, 500 MG PO DAILY, (Reported) Entered as Reported by: PEDRO PIERRE on 03/28/221433 Last Action: Held Duloxetine HCl (Duloxetine HCl) 60 Mg Capsule.dr, 60 MG PO DAILY, (Reported) Entered as Reported by: PEDRO PIERRE on 03/28/221433 Last Action: Converted Folic Acid/Multivit-Minerals (Women's Multivitamin Gummies) 200 Mcg Tab.chew, 2 EA PO DAILY, (Reported) Entered as Reported by: PEDRO PIERRE on 03/28/221433 Last Action: Held Hydrocodone/Acetaminophen (Hydrocodone-Acetamin 10-325 mg) 10 Mg-325 Mg Tablet, 1 EA PO Q6H PRN for PAIN-MODERATE (5-7), (Reported) Entered as Reported by: PEDRO PIERRE on 03/28/221434 Last Action: Continued Lacto No.76/Bifido/Fos/Larch (Women's 50 Billion Probiotc Cp) 25B-25B-50 Caps ule, 1 EACH PO DAILY, (Reported) Entered as Reported by: PEDRO PIERRE on 03/28/221433 Last Action: Held Metoprolol Succinate (Metoprolol Succinate) 50 Mg Tab.er.24h, 50 MG PO DAILY, (Reported) Entered as Reported by: PEDRO PIERRE on 03/28/221433 Last Action: Continued Metoprolol Succinate (Metoprolol Succinate) 25 Mg Tab.er.24h, 25 MG PO HS, (Reported) Entered as Reported by: PEDRO PIERRE on 03/28/221433 Last Action: Continued Ramipril (Ramipril) 10 Mg Capsule, 10 MG PO DAILY, (Reported) Entered as Reported by: PEDRO PIERRE on 03/28/221433 Last Action: Converted Discontinued Medications Hydrocodone Bit/Acetaminophen (Lortab 5 Mg Tablet) 1 Tab Tab, 1-2 EACH PO Q6H PRN for PAIN-MODERATE Discontinued Reason: No Longer Taking Prescribed by: RAMONA MARY on 06/10/19 1610 Last Action: Discontinued Physical Exam-Cardiology Physical Exam Vital Signs/I&O 03/28/22 03/28/22 03/28/22 03/28/22 07:00 10:28 11:15 11:25 Temp 36.8 Pulse 89 86 80 Resp 23 18 23 B/P (MAP) 152/86 (108) 156/77 145/73 (97) Pulse Ox 93 94 95 O2 Delivery Room Air Nasal Cannula Nasal Cannula Nasal Cannula O2 Flow Rate 2.00 2.00 2.00 03/28/22 03/28/22 03/28/22 03/28/22 11:25 11:30 11:45 12:00 Pulse 86 85 81 81 Resp 15 16 19 B/P (MAP) 120/60 (80) 127/69 (88) 126/71 (89) Pulse Ox 94 95 94 O2 Delivery Nasal Cannula Nasal Cannula Nasal Cannula O2 Flow Rate 2.00 2.00 2.00 03/28/22 03/28/22 03/28/22 03/28/22 12:00 12:15 12:30 13:00 Temp 37.7 Pulse 77 89 80 Resp 16 19 21 B/P (MAP) 113/57 (75) 104/69 (81) 110/68 (82) Pulse Ox 94 95 94 O2 Delivery Nasal Cannula Nasal Cannula Nasal Cannula O2 Flow Rate 2.00 2.00 2.00 03/28/22 13:09 Pulse 80 Capillary Refill : Less Than 3 Seconds Constitutional: AAO x 3, well-developed, well-nourished HEENT: PERRL, hearing is well preserved, oral hygience is good Neck: No carotid bruit; carotid pulses are 2 + bilaterally Respiratory: No accessory muscle use, No respiratory distress; chest expansion is symmetric, chest is bilaterally symmetric, other (bilat diminished breath sounds, R>L) Cardiovascular: regular rate-rhythm; No JVD; S1 and S2, systolic murmur Gastrointestinal: No tender; soft, round, audible bowel sounds Extremities: no lower extremity edema bilateral Neurologic/Psychiatric: grossly intact (moves all extremity) Skin: No rash on exposed areas, No ulcerations on exposed areas Data Review Labs Laboratory Tests 03/28/22 07:15: White Blood Count 11.9H, Red Blood Count 3.41L, Hemoglobin 10.9L, Hematocrit 33L , Mean Corpuscular Volume 97, Mean Corpuscular Hemoglobin 32, Mean Corpuscular Hemoglobin Concent 33, Red Cell Distribution Width 14.1, Platelet Count 208, Mean Platelet Volume 10.9, Immature Granulocyte % (Auto) 0, Neutrophils (%) (Auto) 85H, Lymphocytes (%) (Auto) 9L, Monocytes (%) (Auto) 5, Eosinophils (%) (Auto) 1, Basophils (%) (Auto) 0, Neutrophils # (Auto) 10.1H, Lymphocytes # (Auto) 1.1, Monocytes # (Auto) 0.6, Eosinophils # (Auto) 0.1, Basophils # (Auto) 0.0, Immature Granulocyte # (Auto) 0.1, Prothrombin Time 13.1, INR Comment 1.0, Activated Partial Thromboplast Time 26, D-Dimer 3.53H, Sodium Level 139, Potassium Level 4.7, Chloride Level 102, Carbon Dioxide Level 28, Anion Gap 9, Blood Urea Nitrogen 18, Creatinine 0.82, Estimat Glomerular Filtration Rate 75, BUN/Creatinine Ratio 22, Glucose Level 120H, Calcium Level 9.7, Corrected Calcium 10.0, Magnesium Level 1.6, Total Bilirubin 0.6, Aspartate Amino Transf (AST/SGOT) 15, Alanine Aminotransferase (ALT/SGPT) 12, Alkaline Phosphatase 83, Troponin I < 0.30, Pro-B-Type Natriuretic Peptide 3601.0H, Total Protein 6.3L, Albumin 3.6 03/28/22 07:27: Lactic Acid Level 1.09 03/28/22 07:29: Influenza Type A (RT-PCR) Not Detected, Influenza Type B (RT-PCR) Not Detected, SARS-CoV-2 RNA (RT-PCR) Not Detected 03/28/22 08:34: Urine Color YELLOW, Urine Clarity CLEAR, Urine pH 7.0, Urine Specific [place] 1.015L, Urine Protein NEGATIVE, Urine Glucose (UA) NEGATIVE, Urine Ketones NEGATIVE, Urine Nitrite NEGATIVE, Urine Bilirubin NEGATIVE, Urine Urobilinogen 0.2, Urine Leukocyte Esterase NEGATIVE, Urine RBC (Auto) NEGATIVE, Urine RBC NONE, Urine WBC NONE, Urine Squamous Epithelial Cells 0-2, Urine Crystals NONE, Urine Bacteria NEGATIVE, Urine Casts NONE, Urine Mucus NEGATIVE, Urine Culture Indicated NO A/P-Cardiology Assessment/Admission Diagnosis Acute on chronic decompensated systolic and diastolic CHF - Echo on 03/28/22: LVEF 45-50%, grade 2 diastolic dysfunction, distal septal hypokinesis and /or paradoxical motion, PASP 40-45 mmHg Reports h/o Takotsubo Cardiomyopathy - diagnosed 4 yrs ago with reported recovery - Echocardiogram of 03-09-[address] Moody showed LVEF 55-60% with grade 1 diastolic dysfunction with mild to mod MR, mild LA enlargement; AoV scelrosis with no evidence of stenosis; mild to mod TR Reports one episode of PAF - 4 yrs ago at time of cardiomyopathy dx - no OAC tx - managed by Dr. Moody Cardiac cath of 01-22-[address] Moody at [place], [place] - non-obstructive CAD. Mild pulmonary HTN. Elevated LVEDP Chronic LBB - per Dr. Moody note of 03-09-22 HTN CISCO - unable to tolerate CPAP Surgical hx - bilat knee replacement - cholecystectomy and appy Discussion and Recomendations Acute on chronic decompensated CHF - non-compliant with Lasix at home - IV Lasix Monitor lab - replace electrolytes HTN - continue home medications Request records from Dr. Nunn Continue home medications Further recs will be based on her hospital course We would like to thank Dr. Callejas for this consult BUCKY DE LA ROSA MD FACP FAC CCDS Mar 28, 2022 15:03
--- NOTE | 2022-03-28 15:18 | Physical Therapy Evaluation ---
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 3-Eatqzeqddz-cznctsr completes the activity by him/herself with no assistance from a helper. 5-Set-up or Clean-up Assistance-helper sets up or cleans up; patient completes activity. [place] assists only prior to or following the activity. 4-Supervision or Touching Assistance-helper provides verbal cues and/or touching/steadying and/or contact guard assistance as patient completes activity. Assistance may be provided throughout the activity or intermittently. 3-Partial/Moderate Assistance-helper does LESS THAN HALF the effort. [place] lifts, holds or supports trunk or limbs, but provides less than half the effort. 2-Substantial/Maximal Assistance-helper does MORE THAN HALF the effort. [place] lifts or holds trunk or limbs and provides more than half the effort. 8-Zsouifcdh-ozfzbt does ALL the effort. Patient does none of the effort to compl ete the activity. Or, the assistance of 2 or more helpers is required for the patient to complete the activity. If activity was not attempted, code reason: 7-Patient Refused. 9-Not Applicable-not attempted and the patient did not perform the activity before the current illness, exacerbation or injury. 10-Not Attempted due to Environmental Limitations-(lack of equipment, weather restraints, etc.). 88-Not Attempted due to Medical Conditions or Safety Concerns. Bed Mobility: 6 Transfers (B,C,W/C): 6 Gait: 6 Stairs: 6 Indoor Mobility (Ambulation): Independent Stairs: Independent Patient used a SPC PT Evaluation-Current Subjective Patient in bed pre tx, agrees to PT, has no complaints of pain. Patient recently had a left total shoulder, she has not started physical therapy for it yet, she has a dr appt on . Pt/Family Goals to be independent at home Objective Patient Orientation: Person, Place, Situation Attachments: Oxygen, Foster Catheter ROM/Strength ROM Lower Extremities WNL Sensory Vision: Wears Glasses Hearing: Functional Transfers Roll Left to Right (QC): 6 Sit to Lying (QC): 6 Lying to Sitting/Side of Bed(Q: 6 Sit to Stand (QC): 4 Chair/Wwe-vr-Zjbaf Xfer(QC): 4 Patient was unsteady upon standing, needed steadying assist. Gait Does the Patient Walk?: Yes Mode of Locomotion: Walk Anticipated Mode of Locomotion: Walk Walk 10 feet (QC): 4 Distance: 30' Gait Assistive Device: Handheld Assist Comments/Gait Description slow, unsteady, trendelenburg gait on the right side Balance Sitting Static: Normal Sitting Dynamic: Normal Standing Static: Fair Standing Dynamic: Poor Treatment BLE supine exercises x10 (AP, HS) Assessment/Needs Patient in bed post tx with nurse call, phone, tray, all needs met. Patient has impaired mobility and is unsteady with transfers and ambulation, patient would benefit from using a cane in the hospital. Rehab Potential: Fair PT Custodial Goals Air Conditioning Unit Tester Goals PT Air Conditioning Unit Tester Goals Time Frame: Apr 04, 2022 Roll Left & Right (QC): 6 Sit to Lying (QC): 6 Lying-Sitting on Side/Bed(QC): 6 Sit to Stand (QC): 6 Chair/Frn-vp-Kmemw Xfer(QC): 6 Walk 10 feet (QC): 6 Walk 50ft with 2 Turns (QC): 6 PT Plan Problem List Problem List: Activity Tolerance, Functional Strength, Safety, Balance, Gait, Transfer, Bed Mobility, ROM Treatment/Plan Treatment Plan: Continue Plan of Care Treatment Plan: Bed Mobility, Education, Functional Activity Jewel, Functional Strength, Gait, Safety, Therapeutic Exercise, Transfers Treatment Duration: Apr 04, 2022 Frequency: 6 times per week Estimated Hrs Per Day: .25 hour per day Patient and/or Family Agrees t: Yes Safety Risks/Education Patient Education: Gait Training, Transfer Techniques, Correct Positioning, Safety Issues Teaching Recipient: Patient Teaching Methods: Demonstration, Discussion Response to Teaching: Reinforcement Needed Discharge Recommendations Plan Patient will perform bed mobility and transfer training, balance and endurance training, functional strengthening, stair training, gait training, and education, to improve functional mobility and independence at home. Therapy Discharge Recommendati: Scheduled Assistance, Home & Family, Post Acute PT Time/GCodes Time In: 1450 Time Out: 1508 Total Billed Treatment Time: 18 Total Billed Treatment 1 visit TASHA Finch' JADYN WAGNER PT Mar 28, 2022 15:18
--- NOTE | 2022-03-28 15:20 | Occupational Therapy Eval ---
OT Evaluation-General/PLF Medical Diagnosis Admission Date Mar 28, 2022 at 11:17 Medical Diagnosis: Acute exacerbataion of CHF Onset Date: Mar 28, 2022 Therapy Diagnosis Therapy Diagnosis: reduced adl status Precautions Precautions/Isolations: Fall Prevention, Standard Precautions Referral Physician: Júnior Referral Reason: Evaluation/Treatment Medical History Pertinent Medical History: CAD, COPD, Heart Failure, HTN Current History Pt arrived to ER with c/o SOB. She recently had rotator cuff surgery on 03/16/22. Per patient, she is normally independent with adls, however since surgery she has needed assistance with bathing and dressing. She lives with her granddaughter and and reports that they are always around to assist as needed. She was using a cane at baseline. Reviewed History: Yes Social History Home: Single Level Current Living Status: Spouse (and granddaughter ) ADL-Prior Level of Function SCALE: Activities may be completed with or without assistive devices. 6-Wimtruyhzr-pwospaj completes the activity by him/herself with no assistance from a helper. 5-Set-up or Clean-up Assistance-helper sets up or cleans up; patient completes activity. [place] assists only prior to or following the activity. 4-Supervision or Touching Assistance-helper provides verbal cues and/or touching/steadying and/or contact guard assistance as patient completes activity. Assistance may be provided throughout the activity or intermittently. 3-Partial/Moderate Assistance-helper does LESS THAN HALF the effort. [place] lift s, holds or supports trunk or limbs, but provides less than half the effort. 2-Substantial/Maximal Assistance-helper does MORE THAN HALF the effort. [place] lifts or holds trunk or limbs and provides more than half the effort. 7-Siehudsaa-zgpzrh does ALL the effort. Patient does none of the effort to complete the activity. Or, the assistance of 2 or more helpers is required for the patient to complete the activity. If activity was not attempted, code reason: 7-Patient Refused. 9-Not Applicable-not attempted and the patient did not perform the activity before the current illness, exacerbation or injury. 10-Not Attempted due to Environmental Limitations-(lack of equipment, weather restraints, etc.). 88-Not Attempted due to Medical Conditions or Safety Concerns. Self Care: Needed Some Help Functional Cognition: Independent DME/Equipment: Bath Bench, Tub/Shower OT Current Status Subjective Pt denies pain, agreeable to evaluation. Appearance Pt returned to supine in bed, all needs within reach at OT departure. Mental Status/Objective Patient Orientation: Person, Place, Situation Attachments: Foster Catheter, IV, Oxygen (2L), SCD's, Telemetry Current Hand Dominance: Right Upper Extremity ROM LUE not tested secondary to recent rotator cuff surgery and UE in sling. Unsure of ROM/WB restrictions at this time. Further clarification on protocol will be needed before any manual treatment will be performed. ADL-Treatment On/Off Footwear (QC): 1 Supine<>sit: SBA-CGA. Pt declines attempt to don bilateral socks despite education on compensatory/1 handed techniques. She reports that her family will assist if needed. She stood with CGA. Desat to 88%, improves to 91% with time and cues for PLB, currently on 2L oxygen. Small LOB needing min a to recover. She ambulated ~30 feet with hand held assist, unsteady. Oxygen 91% after gait. Pt requesting information on reachers to assist in LB dressing. Education on AE/compensatory strategies will be addressed in future sessions. Education OT Patient Education: Correct positioning, Energy conservation, Modified ADL techniques, Progress toward Goal/Update tx plan, Purpose of tx/functional activities, Reviewed precautions, Rehab process, Safety issues, Transfer techniques, Use of adapted equipment Teaching Recipient: Patient, Family Teaching Methods: Demonstration, Discussion Response to Teaching: Verbalize Understanding, Return Demonstration, Reinforcement Needed OT Accounting Systems Manager Goals Accounting Systems Manager Goals Time Frame: Apr 18, 2022 Eating (QC): 5 Oral Hygiene (QC): 5 Toileting Hygiene (QC): 4 Shower/Bathe Self (QC): 4 Upper Body Dressing (QC): 3 Lower Body Dressing (QC): 4 On/Off Footwear (QC): 4 1=Demonstrate adherence to instructed precautions during ADL tasks. 2=Patient will verbalize/demonstrate understanding of assistive devices/modifications for ADL. 3=Patient will improve strength/tolerance for activity to enable patient to perform ADL's. OT Education/Plan Problem List/Assessment Assessment: Decreased Activ Tolerance, Decreased Safety Aware, Decreased UE Strength, Impaired Funct Balance, Impaired I ADL's, Impaired Self-Care Skills, Restricted Funct UE ROM Discharge Recommendations Plan/Recommendations: Continue POC Therapy Discharge Recommendati: Post Acute OT Treatment Plan/Plan of Care Treatment,Training & Education: Yes Patient would benefit from OT for education, treatment and training to promote independence in ADL's, mobility, safety and/or upper extremity function for ADL's. Plan of Care: ADL Retraining, Caregiver Training, Functional Mobility, Group Exercise/Act as Ind, Orthotic Fitting/Training, UE Funct Exercise/Act Treatment Duration: Apr 18, 2022 Frequency: 3 times per week (3-5x/week) Estimated Hrs Per Day: .25 hour per day Agreement: Yes Rehab Potential: Fair Time/GCodes Start Time: 14:51 Stop Time: 15:09 Total Time Billed (hr/min): 18 Billed Treatment Time 1 visit Serina Bush OT Mar 28, 2022 15:20
[2022-03-28] MEDS: FUROSEMIDE 40 MG/4 ML INJ (LASIX) IV SCH (20:23)
[2022-03-29] VITALS (24 sets, daily range): BP systolic 80–129; BP diastolic 57–102
[2022-03-29] MEDS ORDERED: APIXABAN 5 MG (ELIQUIS) TABLET PO ONE (05:00)
[2022-03-29] MEDS ORDERED: dilTIAZem DRIP PRE-MIX 125 ML IV ONE (05:11)
[2022-03-29] MEDS: dilTIAZem DRIP PRE-MIX 125 ML IV SCH ×3 (05:19→21:10)
[2022-03-29 05:35] LABS: HEMATOCRIT 32 % (35-52); HEMOGLOBIN 10.5 g/dL (11.5-16.0); MEAN CORPUSCULAR HEMOGLOBIN 32 pg (25-34); MEAN CORPUSCULAR HGB CONC 33 g/dL (32-36); MEAN CORPUSCULAR VOLUME 97 fL (80-99); MEAN PLATELET VOLUME 11.4 fL (9.0-12.2); PLATELET COUNT 199 10^3/uL (130-400); WHITE BLOOD COUNT 8.2 10^3/uL (4.3-11.0)
[2022-03-29 05:49] LABS: POTASSIUM 3.9 MMOL/L (3.6-5.0)
[2022-03-29 05:50] LABS: CALCIUM 9.5 MG/DL (8.5-10.1)
[2022-03-29 05:55] LABS: CREATININE SERUM 0.99 MG/DL (0.60-1.30)
[2022-03-29 05:57] LABS: MAGNESIUM 1.6 MG/DL (1.6-2.4)
[2022-03-29] MEDS ORDERED: NS IV 500 ML 500 ML IV PRN (06:00)
[2022-03-29] MEDS: POTASSIUM CL 10MEQ/50ML IVPB 50 ML IV SCH (06:03)
[2022-03-29] MEDS: KCL 20 MEQ TAB (K-DUR) PO SCH (06:04)
[2022-03-29] MEDS: MAGNESIUM 1 GM/100 ML IVPB 100 ML IV SCH ×3 (06:04→08:31)
[2022-03-29] MEDS ORDERED: DIGOXIN 0.25 MG/ML (LANOXIN) 2 ML AMP IV NR ×2 (07:00→09:30)
[2022-03-29] MEDS ORDERED: KCL 20 MEQ TAB (K-DUR) PO NR (08:30)
[2022-03-29] MEDS: FUROSEMIDE 40 MG/4 ML INJ (LASIX) IV SCH ×2 (08:30→20:45)
[2022-03-29] MEDS: ALLOPURINOL 100 MG (ZYLOPRIM) TAB PO SCH (08:30)
[2022-03-29] MEDS: DULoxetine 30 MG (CYMBALTA) CAP PO SCH (08:30)
--- NOTE | 2022-03-29 08:57 | Physical Therapy Progress Note ---
Therapy Progress Note Patient was transferred to ICU from the cardiac floor. Will need new orders to continue PT when appropriate. JADYN WAGNER PT Mar 29, 2022 08:57
[2022-03-29] MEDS ORDERED: NON-FORMULARY MEDICATION 1 EA EA (Duloxetine HCl 60 MG) PO SCH (09:00)
[2022-03-29] MEDS ORDERED: NON-FORMULARY MEDICATION 1 EA EA (Ramipril 10 MG) PO SCH (09:00)
[2022-03-29] MEDS ORDERED: RAMIPRIL 2.5 MG (ALTACE) CAP PO SCH (09:00)
[2022-03-29] MEDS ORDERED: meTOproloL SUCCINATE 50 MG (TOPROL XL) TAB PO SCH (09:00)
[2022-03-29] MEDS ORDERED: meTOprolol 5 MG/5 ML (LOPRESSOR) VIAL IV NR (09:30)
--- NOTE | 2022-03-29 10:07 | Tele-ICU Progress Note ---
Subjective Date Seen by a Provider: Mar 29, 2022 Time Seen by a Provider: 10:07 Subjective/Events-last exam (Tele-ICU Physician , consultation) Available chart/ vitals / labs / Images reviewed H&P is from ER notes Patient's information available about PMH, Shx, Fhx allergy reviewed inEMR. ROS as per chart and RN report Now in ICU, hemodynamically stable Video assessment done using teleICU camera, rest of exam as per RN Discussed with RN. Consultants: penny Hospital course: (03/29) 76yF Admit Acute Exab CHF, Pulm Edema. AFIB RVR A/P PAF - with reportedly one episode prioor - on cardize gtt, dig , metoprolol - AC with eliquis - cards follow Acute on chronic decompensated systolic and diastolic CHF - Echo on 03/28/22: LVEF 45-50%, grade 2 diastolic dysfunction, - lasix as per cards left rotator cuff surgery 2 weeks ago. - pian control Lines : , (Central Line Necessity Reviewed) Foster: OG: Nutrition: Analgesia: Anxiety/ delirium VTE Prophylaxis: Stress Ulcer Prophylaxis: Glycemic Control: Plans in collaboration with bedside consultants and IM MDs. Discussed with RN to reach out if any questions or concerns A total of _15 minutes of critical care time was devoted to this patient today, required to treat and/or prevent further deterioration of critical care condition ( as above ) . Sepsis Event Evaluation Height, Weight, BMI Height: '" Weight: lbs. oz. kg; 41.67 BMI Method: Focused Exam Lactate Level 03/28/22 07:27: Lactic Acid Level 1.09 Exam Exam Patient acknowledged, consented, and participated in this virtual visit which was conducted using real time audio/video Vital Signs Date Time Temp Pulse Resp B/P (MAP) Pulse Ox O2 Delivery O2 Flow Rate FiO2 03/29/22 08:00 36.0 03/29/22 08:00 Nasal Cannula 2.00 03/29/22 07:56 128 03/29/22 07:00 142 102/73 (83) 94 Nasal Cannula 2.00 03/29/22 06:45 142 113/102 (106) 95 Nasal Cannula 2.00 03/29/22 06:30 135 107/82 (98) 94 Nasal Cannula 2.00 03/29/22 06:11 149 102/81 (89) 94 Nasal Cannula 2.00 03/29/22 05:31 123 109/73 (91) Nasal Cannula 2.00 03/29/22 04:00 138 119/82 (96) 96 Nasal Cannula 2.00 03/29/22 03:40 36.8 70 17 119/57 (77) 97 Nasal Cannula 2.00 03/29/22 03:32 140 03/29/22 01:00 72 03/29/22 00:00 74 21 129/61 (94) 96 Nasal Cannula 2.00 03/29/22 00:00 36.5 75 16 116/71 (86) 98 Nasal Cannula 2.00 03/28/22 23:57 75 19 116/71 (74) 97 Nasal Cannula 2.00 03/28/22 23:00 74 27 104/91 (96) 96 Nasal Cannula 2.00 03/28/22 22:00 75 27 114/92 (108) 96 Nasal Cannula 2.00 03/28/22 21:00 78 133/65 (91) 97 Nasal Cannula 2.00 03/28/22 20:00 37.5 86 20 146/72 (96) 97 03/28/22 20:00 83 28 128/74 (90) 95 Nasal Cannula 2.00 03/28/22 20:00 97 Nasal Cannula 2.00 03/28/22 19:32 Nasal Cannula 2.00 99 03/28/22 19:00 82 03/28/22 16:00 37.1 03/28/22 16:00 80 35 106/65 (79) 99 Nasal Cannula 2.00 03/28/22 15:00 76 26 121/62 (81) 97 Nasal Cannula 2.00 03/28/22 14:00 74 38 119/69 (86) 95 Nasal Cannula 2.00 03/28/22 13:09 80 03/28/22 13:00 80 21 110/68 (82) 94 Nasal Cannula 2.00 03/28/22 12:30 89 19 104/69 (81) 95 Nasal Cannula 2.00 03/28/22 12:15 77 16 113/57 (75) 94 Nasal Cannula 2.00 03/28/22 12:00 37.7 03/28/22 12:00 81 19 126/71 (89) 94 Nasal Cannula 2.00 03/28/22 11:45 81 16 127/69 (88) 95 Nasal Cannula 2.00 03/28/22 11:30 85 15 120/60 (80) 94 Nasal Cannula 2.00 03/28/22 11:25 86 03/28/22 11:25 80 23 145/73 (97) 95 Nasal Cannula 2.00 03/28/22 11:15 Nasal Cannula 2.00 03/28/22 10:28 86 18 156/77 94 Nasal Cannula 2.00 I & O 03/29/22 07:00 Intake Total 1520 ml Output Total 2225 ml Balance -705 ml Height & Weight Height: '" Weight: lbs. oz. kg; 41.67 BMI Method: General Appearance: No Apparent Distress, Chronically ill, Obese HEENT: PERRL/EOMI, Moist Mucous Membranes; No Scleral Icterus (L), No Scleral Icterus (R) Neck: Normal Inspection, Supple Respiratory: Lungs Clear, No Accessory Muscle Use, No Respiratory Distress Cardiovascular: Regular Rate, Rhythm, No JVD, No Murmur Capillary Refill: Less Than 3 Seconds Extremity: Normal Capillary Refill, No Calf Tenderness, No Pedal Edema Neurologic/Psychiatric: Alert, Oriented x3, Normal Mood/Affect Skin: Normal Color, Warm/Dry Results Lab Laboratory Tests 03/28/22 07:15 03/29/22 05:05 Assessment/Plan Assessment/Plan 1 VICTORINA KESSLER MD Mar 29, 2022 10:07
--- NOTE | 2022-03-29 10:22 | Progress Note - Hospitalist ---
Subjective HPI/CC On Admission Date Seen by Provider: Mar 29, 2022 Patient is a 76-year-old female with past medical history of CHF, hypertension, CAD, COPD who presented to the emergency department due to shortness of breath. She had her shoulder replaced last week and has been at home recovering and feeling more short of breath. She is normally on Lasix but states that it was making her pee too much so after her last prescription she did not refill it. She reported to the emergency department that that was just a week or 2 ago but to me she states it was over a year ago. She was found to have an elevated BNP and pulmonary vascular congestion on imaging and was admitted for further management. Subjective/Events-last exam Pt reports breathing better. Feeling palpitations though. Converted to a fib with RVR overnight and now in ICU on cardizem gtt. Focused Exam Lactate Level 03/28/22 07:27: Lactic Acid Level 1.09 Objective Exam Vital Signs Vital Signs Date Time Temp Pulse Resp B/P (MAP) Pulse Ox O2 Delivery O2 Flow Rate FiO2 03/29/22 08:00 36.0 03/29/22 08:00 Nasal Cannula 2.00 03/29/22 07:56 128 03/29/22 07:00 102/73 (83) 94 03/29/22 03:40 17 03/28/22 19:32 99 Capillary Refill : Less Than 3 Seconds General Appearance: No Apparent Distress, WD/WN, Obese Respiratory: Lungs Clear, No Respiratory Distress Cardiovascular: Irregularly Irregular, Tachycardia Gastrointestinal: Normal Bowel Sounds, Non Tender, Soft Neurologic/Psychiatric: Alert, Oriented x3 Results/Procedures Lab Laboratory Tests 03/29/22 05:05 Patient resulted labs reviewed. Imaging: Reviewed Imaging Report Assessment/Plan Assessment and Plan Assess & Plan/Chief Complaint CHF exacerbation CAD Continue on IV lasix Echo show EF of 45% with grade 2 diastolic dysfunction Accurate I/Os -500ml yesterday Cardiology consulted, appreciate recs Records request from [facility] Atrial fibrillation ?new onset vs paroxysmal- unclear on if she has had this in the past Cardizem gtt Digoxin given by Dr Chavez as well this AM Eliquis for stroke ppx HTN Continue home meds Shoulder replacement PT/OT Diagnosis/Problems Diagnosis/Problems (1) Acute exacerbation of CHF (congestive heart failure) Status: Acute Qualifiers: Heart failure type: unspecified Qualified Codes: I50.9 - Heart failure, unspecified SUMMER MATRIN MD Mar 29, 2022 10:22
--- NOTE | 2022-03-29 10:29 | Occ Therapy Progress Note ---
Therapy Progress Note Patient was transferred to ICU from the cardiac floor. Will need new orders to continue OT when appropriate. Serina Andre OT Mar 29, 2022 10:29
[2022-03-29] MEDS: meTOprolol 5 MG/5 ML (LOPRESSOR) VIAL IV SCH ×5 (11:46→23:28)
--- NOTE | 2022-03-29 15:25 | Progress Note - Cardiology ---
Cardiology SOAP Progress Note Subjective: No cp or palp or syncope Shortness of breath with activity No n/v/d No swelling Gen weakness and malaise Objective: I&O/Vital Signs 03/29/22 03/29/22 03/29/22 03/29/22 03:32 03:40 04:00 05:31 Temp 36.8 Pulse 140 70 138 123 Resp 17 B/P (MAP) 119/57 (77) 119/82 (96) 109/73 (91) Pulse Ox 97 96 O2 Delivery Nasal Cannula Nasal Cannula Nasal Cannula O2 Flow Rate 2.00 2.00 2.00 03/29/22 03/29/22 03/29/22 03/29/22 06:11 06:30 06:45 07:00 Pulse 149 135 142 142 B/P (MAP) 102/81 (89) 107/82 (98) 113/102 (106) 102/73 (83) Pulse Ox 94 94 95 94 O2 Delivery Nasal Cannula Nasal Cannula Nasal Cannula Nasal Cannula O2 Flow Rate 2.00 2.00 2.00 2.00 03/29/22 03/29/22 03/29/22 03/29/22 07:56 08:00 08:00 08:00 Temp 36.0 Pulse 128 147 Resp 31 B/P (MAP) 103/81 (88) Pulse Ox 90 O2 Delivery Nasal Cannula Nasal Cannula O2 Flow Rate 2.00 2.00 03/29/22 03/29/22 03/29/22 03/29/22 09:00 10:00 11:00 12:00 Pulse 151 133 129 123 Resp 34 33 29 19 B/P (MAP) 93/66 (75) 112/66 (81) 111/59 (76) 92/64 (73) Pulse Ox 93 94 94 94 O2 Delivery Nasal Cannula Nasal Cannula Nasal Cannula Nasal Cannula O2 Flow Rate 2.00 2.00 2.00 2.00 03/29/22 03/29/22 03/29/22 03/29/22 12:00 13:00 13:07 14:00 Pulse 131 129 116 Resp 20 24 B/P (MAP) 80/64 (69) 100/70 (80) Pulse Ox 93 93 O2 Delivery Nasal Cannula Nasal Cannula Nasal Cannula O2 Flow Rate 2.00 2.00 2.00 03/29/22 15:00 Pulse 112 Resp 34 B/P (MAP) 113/61 (78) Pulse Ox 94 O2 Delivery Nasal Cannula O2 Flow Rate 2.00 03/29/22 00:00 Intake Total 1070 ml Output Total 1575 ml Balance -505 ml Constitutional: AAO x 3, well-developed, well-nourished Respiratory: chest expansion is symmetric, chest is bilaterally symmetric, other Cardiovascular: regular rate-rhythm, S1 and S2, systolic murmur Gastrointestional: soft, round, audible bowel sounds Extremities: no lower extremity edema bilateral Neurologic/Psychiatric: grossly intact Skin: No rash on exposed areas, No ulcerations on exposed areas Results/Procedures: Labs Laboratory Tests 03/29/22 05:05: White Blood Count 8.2, Red Blood Count 3.31L, Hemoglobin 10.5L, Hematocrit 32L, Mean Corpuscular Volume 97, Mean Corpuscular Hemoglobin 32, Mean Corpuscular Hemoglobin Concent 33, Red Cell Distribution Width 14.2, Platelet Count 199, Mean Platelet Volume 11.4, Sodium Level 139, Potassium Level 3.9, Chloride Level 98, Carbon Dioxide Level 28, Anion Gap 13, Blood Urea Nitrogen 24H, Creatinine 0.99, Estimat Glomerular Filtration Rate 59, BUN/Creatinine Ratio 24, Glucose Level 99, Calcium Level 9.5, Magnesium Level 1.6 Laboratory Tests 03/28/22 07:15 03/29/22 05:05 A/P: Assessment: Newly diagnosed A Fib with RVR on 03/29/22 - previous h/o one episode of PAF 4 yrs ago at time of cardiomyopathy dx - no OAC tx - managed by Dr. 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 Moody showed LVEF 55-60% with grade 1 diastolic dysfunction with mild to mod MR, mild LA enlargement; AoV scelrosis with no evidence of stenosis; mild to mod TR Cardiac cath of 01-22-[address] Moody at [place], [place] - non-obstructive CAD. Mild pulmonary HTN. Elevated LVEDP Chronic LBB - per Dr. Moody note of 03-09-22 HTN CISCO - unable to tolerate CPAP Surgical hx - bilat knee replacement - cholecystectomy and appy Plan: Dilt and beta-guillermina for vent rate control Dig, if needed Apixaban added for stroke prophylaxis Consider CLAUS and cardioversion if vent rate remains uncontrolled despite meds Continue diuretic for CHF Monitor labs BUCKY DE LA ROSA MD FACP [facility] Mar 29, 2022 15:25
[2022-03-29] MEDS: APIXABAN 5 MG (ELIQUIS) TABLET PO SCH (20:43)
[2022-03-30] VITALS (25 sets, daily range): BP systolic 90–122; BP diastolic 58–94
[2022-03-30] MEDS: meTOprolol 5 MG/5 ML (LOPRESSOR) VIAL IV SCH ×2 (02:42→05:42)
[2022-03-30 02:59] LABS: BASOPHILS % (AUTO) 1 % (0-10); EOSINOPHILS # (AUTO) 0.1 10^3/uL (0.0-0.3); EOSINOPHILS % (AUTO) 2 % (0-10); HEMATOCRIT 33 % (35-52); HEMOGLOBIN 10.9 g/dL (11.5-16.0); LYMPHOCYTES # (AUTO) 1.4 10^3/uL (1.0-4.0); LYMPHOCYTES % (AUTO) 18 % (12-44); MEAN CORPUSCULAR HEMOGLOBIN 32 pg (25-34); MEAN CORPUSCULAR HGB CONC 33 g/dL (32-36); MEAN CORPUSCULAR VOLUME 97 fL (80-99); MEAN PLATELET VOLUME 10.8 fL (9.0-12.2); MONOCYTES # (AUTO) 0.6 10^3/uL (0.0-1.0); MONOCYTES % (AUTO) 8 % (0-12); NEUTROPHILS # (AUTO) 5.9 10^3/uL (1.8-7.8); NEUTROPHILS % (AUTO) 72 % (42-75); PLATELET COUNT 221 10^3/uL (130-400); WHITE BLOOD COUNT 8.2 10^3/uL (4.3-11.0)
[2022-03-30 03:07] LABS: POTASSIUM 4.2 MMOL/L (3.6-5.0)
[2022-03-30 03:09] LABS: CALCIUM 9.4 MG/DL (8.5-10.1)
[2022-03-30 03:13] LABS: CREATININE SERUM 1.09 MG/DL (0.60-1.30); PHOSPHORUS 2.9 MG/DL (2.3-4.7)
[2022-03-30] MEDS: dilTIAZem DRIP PRE-MIX 125 ML IV SCH (04:41)
[2022-03-30] MEDS: MAGNESIUM 1 GM/100 ML IVPB 100 ML IV SCH (04:50)
[2022-03-30] MEDS: POTASSIUM CL 10MEQ/50ML IVPB 50 ML IV SCH (04:50)
[2022-03-30] MEDS: KCL 20 MEQ TAB (K-DUR) PO SCH (04:51)
--- NOTE | 2022-03-30 07:34 | Progress Note - Cardiology ---
Cardiology SOAP Progress Note Subjective: Feels better No cp or palp or syncope or shortness of breath at rest No n/v/d No focal weakness Objective: I&O/Vital Signs 03/29/22 03/29/22 03/29/22 03/29/22 20:00 20:00 20:00 20:38 Temp 36.6 Pulse 109 B/P (MAP) 96/65 (77) Pulse Ox 93 O2 Delivery Nasal Cannula Nasal Cannula Nasal Cannula O2 Flow Rate 2.00 2.00 2.00 FiO2 99 03/29/22 03/29/22 03/29/22 03/29/22 21:05 22:00 22:15 23:00 Pulse 107 109 108 122 Resp 33 16 B/P (MAP) 118/66 (83) 84/68 (72) 99/71 (83) 104/60 (80) Pulse Ox 95 94 95 O2 Delivery Nasal Cannula Nasal Cannula Nasal Cannula Nasal Cannula O2 Flow Rate 2.00 2.00 2.00 2.00 03/29/22 03/30/22 03/30/22 03/30/22 23:47 00:15 01:00 01:00 Pulse 118 100 100 Resp 25 B/P (MAP) 106/62 (77) 97/81 (91) Pulse Ox 94 95 O2 Delivery Nasal Cannula Nasal Cannula Nasal Cannula O2 Flow Rate 2.00 2.00 2.00 03/30/22 03/30/22 03/30/22 03/30/22 02:00 02:15 03:00 03:58 Pulse 110 109 109 Resp 16 21 12 B/P (MAP) 90/58 (68) 102/70 (87) 120/67 (76) Pulse Ox 94 93 94 O2 Delivery Nasal Cannula Nasal Cannula Nasal Cannula Nasal Cannula O2 Flow Rate 2.00 2.00 2.00 2.00 03/30/22 03/30/22 03/30/22 04:00 05:00 06:00 Pulse 105 112 93 Resp 19 19 23 B/P (MAP) 98/75 (86) 121/79 (93) 105/61 (69) Pulse Ox 95 93 94 O2 Delivery Nasal Cannula Nasal Cannula Nasal Cannula O2 Flow Rate 2.00 2.00 2.00 03/30/22 00:00 Intake Total 1660 ml Output Total 1025 ml Balance 635 ml Constitutional: AAO x 3, well-developed, well-nourished Respiratory: chest expansion is symmetric, chest is bilaterally symmetric, other Cardiovascular: regular rate-rhythm, S1 and S2, systolic murmur Gastrointestional: soft, round, audible bowel sounds Extremities: no lower extremity edema bilateral Neurologic/Psychiatric: grossly intact Skin: No rash on exposed areas, No ulcerations on exposed areas Results/Procedures: Labs Laboratory Tests 03/30/22 02:50: White Blood Count 8.2, Red Blood Count 3.44L, Hemoglobin 10.9L, Hematocrit 33L, Mean Corpuscular Volume 97, Mean Corpuscular Hemoglobin 32, Mean Corpuscular Hemoglobin Concent 33, Red Cell Distribution Width 14.1, Platelet Count 221, Mean Platelet Volume 10.8, Immature Granulocyte % (Auto) 0, Neutrophils (%) (Au to) 72, Lymphocytes (%) (Auto) 18, Monocytes (%) (Auto) 8, Eosinophils (%) (Auto) 2, Basophils (%) (Auto) 1, Neutrophils # (Auto) 5.9, Lymphocytes # (Auto) 1.4, Monocytes # (Auto) 0.6, Eosinophils # (Auto) 0.1, Basophils # (Auto) 0.0, Immature Granulocyte # (Auto) 0.0, Sodium Level 137, Potassium Level 4.2, Chloride Level 97L, Carbon Dioxide Level 28, Anion Gap 12, Blood Urea Nitrogen 27H, Creatinine 1.09, Estimat Glomerular Filtration Rate 53, BUN/Creatinine Ratio 25, Glucose Level 103, Calcium Level 9.4, Phosphorus Level 2.9, Magnesium Level 2.0, Digoxin Level 0.79L Laboratory Tests 03/29/22 05:05 03/30/22 02:50 A/P: Assessment: Newly diagnosed A Fib with RVR on 03/29/22 - previous h/o one episode of PAF in or around 2018 - no OAC tx - managed by Dr. Moody - started on OAC and rate-control meds during this hosp Acute on chronic decompensated systolic and diastolic CHF (cardiomyopathy suspected to be tachycardia-related) - Echo on 03/28/22: LVEF 45-50%, grade 2 diastolic dysfunction, distal septal hypokinesis and /or paradoxical motion, PASP 40-45 mmHg Reports h/o Takotsubo Cardiomyopathy - diagnosed 4 yrs ago with reported recovery - Echocardiogram of 03-09-[address] Moody showed LVEF 55-60% with grade 1 diastolic dysfunction with mild to mod MR, mild LA enlargement; AoV scelrosis with no evidence of stenosis; mild to mod TR Cardiac cath of 01-22-[address] Moody at [place], [place] - non-obstructive CAD. Mild pulmonary HTN. Elevated LVEDP Chronic LBB - per Dr. Moody note of 03-09-22 HTN CISCO - unable to tolerate CPAP Surgical hx - bilat knee replacement - cholecystectomy and appy Plan: Change to oral dilt and beta-guillermina for vent rate control Dig, if needed Continue apixaban for stroke prophylaxis Continue diuretic for CHF Add ROSINA-inhib/ARB if bp permits Monitor labs BUCKY DE LA ROSA MD FACP [facility] Mar 30, 2022 07:34
[2022-03-30] MEDS: APIXABAN 5 MG (ELIQUIS) TABLET PO SCH ×2 (08:38→20:35)
[2022-03-30] MEDS: ALLOPURINOL 100 MG (ZYLOPRIM) TAB PO SCH (08:38)
[2022-03-30] MEDS: DULoxetine 30 MG (CYMBALTA) CAP PO SCH (08:38)
[2022-03-30] MEDS: FUROSEMIDE 40 MG/4 ML INJ (LASIX) IV SCH ×2 (08:38→20:34)
--- NOTE | 2022-03-30 09:46 | Progress Note - Hospitalist ---
Subjective HPI/CC On Admission Date Seen by Provider: Mar 30, 2022 Patient is a 76-year-old female with past medical history of CHF, hypertension, CAD, COPD who presented to the emergency department due to shortness of breath. She had her shoulder replaced last week and has been at home recovering and feeling more short of breath. She is normally on Lasix but states that it was making her pee too much so after her last prescription she did not refill it. She reported to the emergency department that that was just a week or 2 ago but to me she states it was over a year ago. She was found to have an elevated BNP and pulmonary vascular congestion on imaging and was admitted for further management. Subjective/Events-last exam Pt reports doing well. No complaints. Still on cardizem gtt. May have cardioversion if cardiology deems necessary. Focused Exam Lactate Level 03/28/22 07:27: Lactic Acid Level 1.09 Objective Exam Vital Signs Vital Signs Date Time Temp Pulse Resp B/P (MAP) Pulse Ox O2 Delivery O2 Flow Rate FiO2 03/30/22 09:10 95 Nasal Cannula 2.00 03/30/22 09:00 96 6 102/74 (83) 03/30/22 08:12 36.0 03/29/22 20:38 99 Capillary Refill : Less Than 3 Seconds General Appearance: No Apparent Distress, Chronically ill, Obese Respiratory: Lungs Clear, No Respiratory Distress Cardiovascular: Irregularly Irregular, Tachycardia Neurologic/Psychiatric: Alert, Oriented x3 Results/Procedures Lab Laboratory Tests 03/30/22 02:50 Patient resulted labs reviewed. Imaging: Reviewed Imaging Report Assessment/Plan Assessment and Plan Assess & Plan/Chief Complaint CHF exacerbation CAD Continue on IV lasix Echo show EF of 45% with grade 2 diastolic dysfunction Accurate I/Os -positive yesterday Cardiology consulted, appreciate recs Records request from [facility] Atrial fibrillation ?new onset vs paroxysmal- unclear on if she has had this in the past Cardizem gtt Digoxin given by Dr Chavez as well this AM Eliquis for stroke ppx Was consented for cardioversion- defer to cardiology HTN Continue home meds Shoulder replacement PT/OT Diagnosis/Problems Diagnosis/Problems (1) Acute exacerbation of CHF (congestive heart failure) Status: Acute Qualifiers: Heart failure type: unspecified Qualified Codes: I50.9 - Heart failure, unspecified SUMMER MARTIN MD Mar 30, 2022 09:46
--- NOTE | 2022-03-30 10:34 | Tele-ICU Progress Note ---
Subjective Date Seen by a Provider: Mar 30, 2022 Time Seen by a Provider: 10:34 Subjective/Events-last exam (Tele-ICU Physician , Progress Note ) Available chart/ vitals / labs / Images reviewed Video assessment done using teleICU camera, rest of exam as per RN Discussed with RN Events overnight : Afebrile hemodynamically stable Respiratory - I/O = even Drips: Pressors- no Consultants: penny Hospital course: (03/29) 76yF Admit Acute Exab CHF, Pulm Edema. AFIB RVR A/P PAF - with reportedly one episode prioor - on cardize gtt, - STOP 03/30 metoprolol - AC with eliquis - cards follow Acute on chronic decompensated systolic and diastolic CHF - Echo on 03/28/22: LVEF 45-50%, grade 2 diastolic dysfunction, - lasix as per cards - stillon 2 l O2 - attempt to wean left rotator cuff surgery 2 weeks ago. - pian controlled Lines : periph , (Central Line Necessity Reviewed) Foster: 03/28 OG: Nutrition: po Analgesia: Anxiety/ delirium VTE Prophylaxis: eliquis Stress Ulcer Prophylaxis: na Plans in collaboration with bedside consultants and IM MDs. Discussed with RN to reach out if any questions or concerns A total of 15 minutes of critical care time was devoted to this patient today, required to treat and/or prevent further deterioration of critical care condition ( as above ) . Sepsis Event Evaluation Height, Weight, BMI Height: '" Weight: lbs. oz. kg; 41.74 BMI Method: Focused Exam Lactate Level 03/28/22 07:27: Lactic Acid Level 1.09 Exam Exam Patient acknowledged, consented, and participated in this virtual visit which was conducted using real time audio/video Vital Signs Date Time Temp Pulse Resp B/P (MAP) Pulse Ox O2 Delivery O2 Flow Rate FiO2 03/30/22 10:00 115 16 92/66 (75) 95 Nasal Cannula 2.00 03/30/22 09:10 95 Nasal Cannula 2.00 03/30/22 09:00 96 102/74 (83) 96 Nasal Cannula 2.00 03/30/22 08:12 36.0 03/30/22 08:00 105 13 122/72 (89) 95 Nasal Cannula 2.00 03/30/22 08:00 Nasal Cannula 2.00 03/30/22 07:00 96 03/30/22 07:00 96 12 117/79 (92) 95 Nasal Cannula 2.00 03/30/22 06:00 93 23 105/61 (69) 94 Nasal Cannula 2.00 03/30/22 05:00 112 19 121/79 (93) 93 Nasal Cannula 2.00 03/30/22 04:00 105 19 98/75 (86) 95 Nasal Cannula 2.00 03/30/22 03:58 Nasal Cannula 2.00 03/30/22 03:00 109 12 120/67 (76) 94 Nasal Cannula 2.00 03/30/22 02:15 109 21 102/70 (87) 93 Nasal Cannula 2.00 03/30/22 02:00 110 16 90/58 (68) 94 Nasal Cannula 2.00 03/30/22 01:00 100 03/30/22 01:00 100 25 97/81 (91) 95 Nasal Cannula 2.00 03/30/22 00:15 118 106/62 (77) 94 Nasal Cannula 2.00 03/29/22 23:47 Nasal Cannula 2.00 03/29/22 23:00 122 16 104/60 (80) 95 Nasal Cannula 2.00 03/29/22 22:15 108 33 99/71 (83) 94 Nasal Cannula 2.00 03/29/22 22:00 109 84/68 (72) 95 Nasal Cannula 2.00 03/29/22 21:05 107 118/66 (83) Nasal Cannula 2.00 03/29/22 20:38 Nasal Cannula 2.00 99 03/29/22 20:00 36.6 03/29/22 20:00 109 96/65 (77) 93 Nasal Cannula 2.00 03/29/22 20:00 Nasal Cannula 2.00 03/29/22 19:30 116 35 104/64 (75) 96 Nasal Cannula 2.00 03/29/22 19:14 119 03/29/22 17:00 115 22 88/63 (71) 95 Nasal Cannula 2.00 03/29/22 16:34 Nasal Cannula 2.00 03/29/22 16:00 131 31 112/69 (83) 95 Nasal Cannula 2.00 03/29/22 16:00 36.6 03/29/22 15:00 112 34 113/61 (78) 94 Nasal Cannula 2.00 03/29/22 14:00 116 24 100/70 (80) 93 Nasal Cannula 2.00 03/29/22 13:07 129 03/29/22 13:00 131 20 80/64 (69) 93 Nasal Cannula 2.00 03/29/22 12:00 Nasal Cannula 2.00 03/29/22 12:00 123 19 92/64 (73) 94 Nasal Cannula 2.00 03/29/22 11:00 129 29 111/59 (76) 94 Nasal Cannula 2.00 I & O 03/30/22 07:00 Intake Total 2585 ml Output Total 3350 ml Balance -765 ml Height & Weight Height: '" Weight: lbs. oz. kg; 41.74 BMI Method: General Appearance: No Apparent Distress, Chronically ill, Obese HEENT: PERRL/EOMI, Moist Mucous Membranes; No Scleral Icterus (L), No Scleral Icterus (R) Neck: Normal Inspection, Supple Respiratory: Lungs Clear, No Respiratory Distress Cardiovascular: Irregularly Irregular, Tachycardia Capillary Refill: Less Than 3 Seconds Extremity: Normal Capillary Refill, No Calf Tenderness, No Pedal Edema Neurologic/Psychiatric: Alert, Oriented x3 Skin: Normal Color, Warm/Dry Results Lab Laboratory Tests 03/29/22 05:05 03/30/22 02:50 Assessment/Plan Assessment/Plan 1 VICTORINA KESSLER MD Mar 30, 2022 10:34
--- NOTE | 2022-03-30 15:37 | Occupational Therapy Eval ---
OT Evaluation-General/PLF Medical Diagnosis Admission Date Mar 28, 2022 at 11:17 Medical Diagnosis: Acute exacerbataion of CHF Onset Date: Mar 28, 2022 Therapy Diagnosis Therapy Diagnosis: decreased ADL status Precautions Precautions/Isolations: Fall Prevention, Standard Precautions Referral Physician: Júnior Referral Reason: Evaluation/Treatment Medical History Pertinent Medical History: CAD, COPD, Heart Failure, HTN Current History Pt arrived to ER with c/o SOB. She recently had rotator cuff surgery on 03/16/22. Social History Home: Single Level Current Living Status: Spouse (and granddaughter ) Entry Into Home: Stairs Without Railing Steps Into Home: 2 ADL-Prior Level of Function SCALE: Activities may be completed with or without assistive devices. 4-Hdvmhdafie-jcckqjc completes the activity by him/herself with no assistance from a helper. 5-Set-up or Clean-up Assistance-helper sets up or cleans up; patient completes activity. [place] assists only prior to or following the activity. 4-Supervision or Touching Assistance-helper provides verbal cues and/or touching/steadying and/or contact guard assistance as patient completes activity. Assistance may be provided throughout the activity or intermittently. 3-Partial/Moderate Assistance-helper does LESS THAN HALF the effort. [place] lifts, holds or supports trunk or limbs, but provides less than half the effort. 2-Substantial/Maximal Assistance-helper does MORE THAN HALF the effort. [place] lifts or holds trunk or limbs and provides more than half the effort. 9-Owxnyooji-sqopne does ALL the effort. Patient does none of the effort to complete the activity. Or, the assistance of 2 or more helpers is required for the patient to complete the activity. If activity was not attempted, code reason: 7-Patient Refused. 9-Not Applicable-not attempted and the patient did not perform the activity before the current illness, exacerbation or injury. 10-Not Attempted due to Environmental Limitations-(lack of equipment, weather restraints, etc.). 88-Not Attempted due to Medical Conditions or Safety Concerns. ADL PLOF Comments Per patient, she is normally independent with adls, however since surgery she has needed assistance with bathing and dressing. She lives with her granddaughter and and reports that they are always around to assist as needed. She was using a cane at baseline. Self Care: Needed Some Help Functional Cognition: Independent DME/Equipment: Bath Bench, Tub/Shower OT Current Status Subjective Pt up in recliner, agreeable to OT Tx. Pt states she was supposed to have her follow up appt with surgeon today, but unable to make it due to being in ICU. OT informed pt and pt's nurse that no LUE ROM will be performed at this time until further clarification on WB restrictions and surgical protocol is obtained. Mental Status/Objective Patient Orientation: Person, Place, Time, Situation Current Hand Dominance: Right Upper Extremity ROM RUE WFL LUE not tested secondary to recent rotator cuff surgery. Unsure of ROM/WB restrictions at this time. Further clarification on protocol will be needed before any manual treatment will be performed. Upper Extremity Strength LUE not tested due to rotator cuff surgery ADL-Treatment Eating (QC): 6 (Per pt report.) Oral Hygiene (QC): 5 (per clincial judgment.) Other Treatments Pt up in recliner, agreeable to OT tx. Pt demo'd independence with HEP for elbow and hand, indicates she is able to recall the movements she is allowed to do from her surgeon. Pt demo'd elbow flexion/extension, wrist flexion/extension and finger flexion/extension. OT encouraged pt to continue with these movements un til further clarification from surgeon is obtained. Until clarification, no LUE shoulder movements are going to be performed. Pt reports some SOB with tasks since her surgery, OT educated pt on various energy conservation techniques, she verbalized understanding. OT also educated pt on OT POC while she is admitted with focus on ADLs and RUE strengthening, she verbalized understanding. LUE can be included in future treatments if protocol is obtained. Post tx, pt in recliner, call light in reach and all needs met. Education OT Patient Education: Correct positioning, Energy conservation, Modified ADL t echniques, Progress toward Goal/Update tx plan, Purpose of tx/functional activities, Reviewed precautions, Rehab process Teaching Recipient: Patient Teaching Methods: Discussion Response to Teaching: Verbalize Understanding OT Halfway Goals Halfway Goals Time Frame: Apr 18, 2022 Eating (QC): 5 Oral Hygiene (QC): 5 Toileting Hygiene (QC): 4 Shower/Bathe Self (QC): 4 Upper Body Dressing (QC): 3 Lower Body Dressing (QC): 4 On/Off Footwear (QC): 4 1=Demonstrate adherence to instructed precautions during ADL tasks. 2=Patient will verbalize/demonstrate understanding of assistive devices/modifications for ADL. 3=Patient will improve strength/tolerance for activity to enable patient to perform ADL's. OT Education/Plan Problem List/Assessment Assessment: Decreased Activ Tolerance, Decreased UE Strength, Impaired Funct Balance, Impaired I ADL's, Impaired Self-Care Skills, Restricted Funct UE ROM Pt would benefit from skilled OT services in order to increase RUE strength and activity tolerance, and increase independence with ADLs and functional mobility for safe return home. She would also benefit from LUE Rotator Cuff Repair protocol if obtained from surgeon. Discharge Recommendations Plan/Recommendations: Continue POC Treatment Plan/Plan of Care Patient would benefit from OT for education, treatment and training to promote independence in ADL's, mobility, safety and/or upper extremity function for ADL's. Plan of Care: ADL Retraining, Caregiver Training, Functional Mobility, Orthotic Fitting/Training, UE Funct Exercise/Act, OTHER (LUE rotator cuff repair protocol if obtained from surgeon) Treatment Duration: Apr 18, 2022 Frequency: 3 times per week (3-5x/week) Estimated Hrs Per Day: .25 hour per day Agreement: Yes Rehab Potential: Fair Time/GCodes Start Time: 15:00 Stop Time: 15:15 Total Time Billed (hr/min): 15 Billed Treatment Time 1, JOSH BACH OT Mar 30, 2022 15:37
--- NOTE | 2022-03-30 15:42 | Physical Therapy Evaluation ---
PT Evaluation-General Medical Diagnosis Admission Date Mar 28, 2022 at 11:17 Medical Diagnosis: Acute exacerbataion of CHF Onset Date: Mar 28, 2022 Therapy Diagnosis Therapy Diagnosis: Gait deficit, strength deficit Precautions Precautions/Isolations: Fall Prevention, Standard Precautions Weight Bear Status Right Lower Extremity: Right Full Weight Bearing Left Lower Extremity: Left Full Weight Bearing Referral Physician: Júnior Reason for Referral: Evaluation/Treatment Medical History Pertinent Medical History: CAD, COPD, Heart Failure, HTN Reviewed History: Yes Social History Home: Single Level Current Living Status: Spouse (and granddaughter ) Entry Into Home: Stairs Without Railing PT Steps Into Home: 2 Prior Prior Level of Function SCALE: Activities may be completed with or without assistive devices. 1-Htjcrazugo-gqyzrci completes the activity by him/herself with no assistance from a helper. 5-Set-up or Clean-up Assistance-helper sets up or cleans up; patient completes activity. [place] assists only prior to or following the activity. 4-Supervision or Touching Assistance-helper provides verbal cues and/or touching/steadying and/or contact guard assistance as patient completes activity. Assistance may be provided throughout the activity or intermittently. 3-Partial/Moderate Assistance-helper does LESS THAN HALF the effort. [place] lifts, holds or supports trunk or limbs, but provides less than half the effort. 2-Substantial/Maximal Assistance-helper does MORE THAN HALF the effort. [place] lifts or holds trunk or limbs and provides more than half the effort. 8-Khhuyjsxh-nidktz does ALL the effort. Patient does none of the effort to complete the activity. Or, the assistance of 2 or more helpers is required for the patient to complete the activity. If activity was not attempted, code reason: 7-Patient Refused. 9-Not Applicable-not attempted and the patient did not perform the activity before the current illness, exacerbation or injury. 10-Not Attempted due to Environmental Limitations-(lack of equipment, weather restraints, etc.). 88-Not Attempted due to Medical Conditions or Safety Concerns. Bed Mobility: 6 Transfers (B,C,W/C): 6 Gait: 6 Stairs: 6 Indoor Mobility (Ambulation): Independent Stairs: Independent PT Evaluation-Current Subjective Patient sitting in chair upon PT arrival, agreeable to treatment. Objective Patient Orientation: Person, Place, Time, Situation Attachments: Oxygen, Foster Catheter ROM/Strength ROM Lower Extremities WFLs all planes bilaterally Strength Lower Extremities 4/5 bilaterally all planes Sensory Vision: Wears Glasses Hearing: Functional Hand Dominance: Right Transfers Sit to Stand (QC): 4 Chair/Cik-kw-Gncdx Xfer(QC): 4 Gait Does the Patient Walk?: Yes Mode of Locomotion: Walk Anticipated Mode of Locomotion: Walk Walk 10 feet (QC): 4 Walk 50 ft with 2 Turns(QC): 4 Distance: 100 Gait Assistive Device: None Comments/Gait Description Patient ambulates with CGA, with antalgic gait pattern, left Trendelenburg, decreased stance time on the left LE. Patient ambulates with narrow DEWAYNE, shortened stride length bilaterally. Balance Sitting Static: Normal Sitting Dynamic: Good Standing Static: Fair Standing Dynamic: Fair Assessment/Needs Patient tolerated PT evaluation well. Performs all observed transfers with CGA. She ambulates 100 feet with CGA, with antalgic gait pattern, left Trendelenburg, decreased stance time on the left LE. Patient ambulates with narrow DEWAYNE, shortened stride length bilaterally. Patient in chair post treatment with all needs met, nursing notified, call light in each. Patient ambulated with Room Air, upon return to room her O2 was 96%. Nurse notified and also notified of need for left shoulder precautions and protocol from surgeon. Will progress left UE ROM with manual therapy and therapeutic exercise upon receipt of protocol, however until then patient will be seen for bed mobility, transfer training, gait training, therapeutic activity. Rehab Potential: Fair PT Glass Designer Goals Assisted Goals PT Assisted Goals Time Frame: Apr 04, 2022 Roll Left & Right (QC): 6 Sit to Lying (QC): 6 Lying-Sitting on Side/Bed(QC): 6 Sit to Stand (QC): 6 Chair/Fkv-tz-Zkeyd Xfer(QC): 6 Walk 10 feet (QC): 6 Walk 50ft with 2 Turns (QC): 6 Walk 150 ft (QC): 6 Walking 10ft on Uneven Surface: 6 1 Step (curb) (QC): 4 4 Steps (QC): 4 PT Plan Problem List Problem List: Activity Tolerance, Functional Strength, Safety, Balance, Gait, Transfer, Bed Mobility, ROM Treatment/Plan Treatment Plan: Continue Plan of Care Treatment Plan: Bed Mobility, Education, Functional Activity Jewel, Functional Strength, Gait, Safety, Therapeutic Exercise, Transfers Treatment Duration: Apr 04, 2022 Frequency: 6 times per week Estimated Hrs Per Day: .25 hour per day Patient and/or Family Agrees t: Yes Safety Risks/Education Patient Education: Gait Training, Transfer Techniques, Safety Issues Teaching Recipient: Patient Teaching Methods: Demonstration, Discussion Response to Teaching: Verbalize Understanding, Return Demonstration Time/GCodes Time In: 1513 Time Out: 1530 Total Billed Treatment Time: 17 Total Billed Treatment Visit, SCOUT Green PT Mar 30, 2022 15:41
[2022-03-31] VITALS (21 sets, daily range): BP systolic 93–165; BP diastolic 53–81
[2022-03-31 05:17] LABS: POTASSIUM 3.9 MMOL/L (3.6-5.0)
[2022-03-31 05:18] LABS: CALCIUM 9.5 MG/DL (8.5-10.1)
[2022-03-31 05:23] LABS: CREATININE SERUM 0.97 MG/DL (0.60-1.30); PHOSPHORUS 3.5 MG/DL (2.3-4.7)
[2022-03-31 05:25] LABS: MAGNESIUM 1.7 MG/DL (1.6-2.4)
[2022-03-31] MEDS: KCL 20 MEQ TAB (K-DUR) PO SCH (07:00)
[2022-03-31] MEDS: POTASSIUM CL 10MEQ/50ML IVPB 50 ML IV SCH (07:00)
[2022-03-31] MEDS: MAGNESIUM 1 GM/100 ML IVPB 100 ML IV SCH ×3 (07:00→10:25)
--- NOTE | 2022-03-31 08:25 | Tele-ICU Progress Note ---
Subjective Date Seen by a Provider: Mar 31, 2022 Subjective/Events-last exam This virtual visit was conducted using real time audio/video. Thank you for asking us to see this patient for respiratory insufficiency due to AE CHF, afib/RVR. Recent events: 0 PE: resting comfortably on camera. VSS. HR 110-120 afib. O2 sat 95% on 1 LPM. HEENT: No obvious masses, adenopathy or JVD. Chest: clear to auscultation. CV: Irreg. S1 S2 No murmur or added sounds. Abd: Non-tender. Bowel sounds Y. : Unremarkable. Foster Y. ESTHETICIAN/psychiatric: Grossly intact. No obvious focal findings. Extremities:No edema. Capillary refill < 3 seconds. Skin: unremarkable. Results: Elevated BUN 25. Decreased Hb 10.9. Video assessment done using teleICU camera, rest of exam as per RN. A/P: Respiratory insufficiency: Continue present management with O2, wean as martha. Monitor for increasing oxygenation needs and/or need for intubation. Critical Care: critically ill patient. Cont. Eliq., lasix, allop., cymbalta, dilt., metop. For CLAUS/cardioversion today. Discussed with SENTHIL Koenig. Asked RN to reach out to eICU if any questions or concerns later. Time spent with patient/coordination of care with other health professionals (mins): 22. Sepsis Event Evaluation Height, Weight, BMI Height: '" Weight: lbs. oz. kg; 41.70 BMI Method: Exam Exam Patient acknowledged, consented, and participated in this virtual visit which was conducted using real time audio/video Vital Signs Date Time Temp Pulse Resp B/P (MAP) Pulse Ox O2 Delivery O2 Flow Rate FiO2 03/31/22 08:07 36.4 03/31/22 08:00 112 17 115/75 (88) 94 Nasal Cannula 1.00 03/31/22 07:00 112 106/73 (84) 94 Nasal Cannula 1.00 03/31/22 07:00 115 03/31/22 06:36 94 Nasal Cannula 1.00 03/31/22 06:00 111 11 108/68 (82) 93 Nasal Cannula 1.00 03/31/22 05:00 109 15 108/64 (79) 94 Nasal Cannula 1.00 03/31/22 04:00 112 22 95/61 (74) 94 Nasal Cannula 1.00 03/31/22 03:52 Nasal Cannula 1.00 03/31/22 03:50 36.7 116 15 97/75 (82) 94 Nasal Cannula 1.00 03/31/22 02:00 111 14 93/53 (66) 92 Nasal Cannula 1.00 03/31/22 01:00 114 13 96/62 (72) 92 Nasal Cannula 1.00 03/31/22 01:00 114 03/31/22 00:04 112 20 102/81 (88) 97 Nasal Cannula 1.00 03/30/22 23:56 36.8 106 24 94 Nasal Cannula 1.00 03/30/22 23:49 Nasal Cannula 1.00 03/30/22 23:00 113 17 106/73 (83) 94 Nasal Cannula 1.00 03/30/22 22:00 105 20 105/72 (89) 93 Nasal Cannula 1.00 03/30/22 21:00 103 109/73 (85) 95 Nasal Cannula 1.00 03/30/22 20:00 110 32 104/65 (77) 96 Nasal Cannula 1.00 03/30/22 19:29 Nasal Cannula 1.00 03/30/22 19:26 36.6 03/30/22 19:00 110 03/30/22 19:00 110 29 110/65 (75) 96 Nasal Cannula 1.00 03/30/22 18:00 113 21 97/75 (82) 93 Nasal Cannula 1.00 03/30/22 17:46 Nasal Cannula 1.00 03/30/22 17:00 112 29 103/76 (85) 96 Room Air 03/30/22 16:00 111 21 115/65 (82) 95 Room Air 03/30/22 16:00 Nasal Cannula 1.00 03/30/22 15:46 36.6 03/30/22 15:00 113 31 106/73 (84) 93 Room Air 03/30/22 14:00 117 13 106/63 (77) 94 Room Air 03/30/22 13:00 100 03/30/22 13:00 110 28 104/71 (82) 94 Room Air 03/30/22 12:00 Nasal Cannula 1.00 03/30/22 12:00 112 23 107/94 (98) 88 Room Air 03/30/22 11:59 36.3 9/8/22 11:00 Room Air 03/30/22 11:00 108 20 99/64 (76) 96 Nasal Cannula 2.00 03/30/22 10:00 115 16 92/66 (75) 95 Nasal Cannula 2.00 03/30/22 09:10 95 Nasal Cannula 2.00 03/30/22 09:00 96 102/74 (83) 96 Nasal Cannula 2.00 I & O 03/31/22 07:00 Intake Total 1760 ml Output Total 2825 ml Balance -1065 ml Height & Weight Height: '" Weight: lbs. oz. kg; 41.70 BMI Method: General Appearance: No Apparent Distress, Chronically ill, Obese HEENT: PERRL/EOMI, Moist Mucous Membranes; No Scleral Icterus (L), No Scleral Icterus (R) Neck: Normal Inspection, Supple Respiratory: Lungs Clear, No Respiratory Distress Cardiovascular: Irregularly Irregular, Tachycardia Capillary Refill: Less Than 3 Seconds Extremity: Normal Capillary Refill, No Calf Tenderness, No Pedal Edema Neurologic/Psychiatric: Alert, Oriented x3 Skin: Normal Color, Warm/Dry Results Lab Laboratory Tests 03/30/22 02:50 03/31/22 04:42 Assessment/Plan Assessment/Plan See free text. Critical Care: Critically Ill Patient SHIRA LESLIE MD Mar 31, 2022 08:25
[2022-03-31] MEDS ORDERED: LIDOCAINE 2% VISCOUS 15 ML UDC PO ONE (08:30)
[2022-03-31] MEDS ORDERED: NS IV 500 ML 500 ML IV SCH (08:30)
[2022-03-31] MEDS ORDERED: AMIODARONE INJECTION 450 MG in NORMAL SALINE 250 ML IV SCH (09:30)
[2022-03-31] MEDS ORDERED: AMIODARONE FOR BOLUS 150 MG in NS (IVPB) 100 ML IV ONE (09:30)
--- NOTE | 2022-03-31 09:31 | Anesthesia-General Post-Op ---
MAC Patient Condition Mental Status/LOC: Same as Preop Cardiovascular: Satisfactory Nausea/Vomiting: Absent Respiratory: Satisfactory Pain: Controlled Complications: Absent Post Op Complications Complications None Follow Up Care/Instructions Patient Instructions None needed. Anesthesiology Discharge Order Discharge Order Patient is doing well, no complaints, stable vital signs, no apparent adverse anesthesia problems. No complications reported per nursing. LILY REEVES DO Mar 31, 2022 09:31
--- NOTE | 2022-03-31 09:34 | Progress Note - Hospitalist ---
Subjective HPI/CC On Admission Patient is a 76-year-old female with past medical history of CHF, hypertension, CAD, COPD who presented to the emergency department due to shortness of breath. She had her shoulder replaced last week and has been at home recovering and feeling more short of breath. She is normally on Lasix but states that it was making her pee too much so after her last prescription she did not refill it. She reported to the emergency department that that was just a week or 2 ago but to me she states it was over a year ago. She was found to have an elevated BNP and pulmonary vascular congestion on imaging and was admitted for further management. Objective Exam Vital Signs Vital Signs Date Time Temp Pulse Resp B/P (MAP) Pulse Ox O2 Delivery O2 Flow Rate FiO2 03/31/22 10:00 68 23 114/61 (78) 95 Nasal Cannula 1.00 03/31/22 08:07 36.4 03/29/22 20:38 99 Capillary Refill : Less Than 3 Seconds Results/Procedures Lab Laboratory Tests 03/31/22 04:42 Patient resulted labs reviewed. Imaging: Reviewed Imaging Report Assessment/Plan Assessment and Plan Assess & Plan/Chief Complaint CHF exacerbation CAD Continue on IV lasix Echo show EF of 45% with grade 2 diastolic dysfunction Accurate I/Os -positive yesterday Cardiology consulted, appreciate recs Records request from V[facility]ctor Atrial fibrillation ?new onset vs paroxysmal- unclear on if she has had this in the past Cardizem gtt Digoxin given by Dr Chavez as well this AM Eliquis for stroke ppx Was consented for cardioversion- defer to cardiology HTN Continue home meds Shoulder replacement PT/OT Critical Care Critically Ill Patient Diagnosis/Problems Diagnosis/Problems (1) Acute exacerbation of CHF (congestive heart failure) Status: Acute Qualifiers: Heart failure type: unspecified Qualified Codes: I50.9 - Heart failure, unspecified SUMMER MARTIN MD Mar 31, 2022 09:34
[2022-03-31] MEDS ORDERED: proPOfol 200 MG/20 ML (DIPRIVAN) VIAL IV ONE (09:46)
[2022-03-31] MEDS: APIXABAN 5 MG (ELIQUIS) TABLET PO SCH ×2 (10:25→20:52)
[2022-03-31] MEDS: ALLOPURINOL 100 MG (ZYLOPRIM) TAB PO SCH (10:25)
[2022-03-31] MEDS: FUROSEMIDE 40 MG/4 ML INJ (LASIX) IV SCH ×2 (10:25→20:52)
[2022-03-31] MEDS: DULoxetine 30 MG (CYMBALTA) CAP PO SCH (10:26)
--- NOTE | 2022-03-31 10:35 | Progress Note - Hospitalist ---
Subjective HPI/CC On Admission Date Seen by Provider: Mar 31, 2022 Time Seen by Provider: 08:00 Patient is a 76-year-old female with past medical history of CHF, hypertension, CAD, COPD who presented to the emergency department due to shortness of breath. She had her shoulder replaced last week and has been at home recovering and feeling more short of breath. She is normally on Lasix but states that it was making her pee too much so after her last prescription she did not refill it. She reported to the emergency department that that was just a week or 2 ago but to me she states it was over a year ago. She was found to have an elevated BNP and pulmonary vascular congestion on imaging and was admitted for further management. Subjective/Events-last exam Pt reports doing well but is anxious. Planning for cardioversion today. She asks me to call her sister who is a retired nurse. I attempted to call x2 and no answer. Objective Exam Vital Signs Vital Signs Date Time Temp Pulse Resp B/P (MAP) Pulse Ox O2 Delivery O2 Flow Rate FiO2 03/31/22 10:00 68 23 114/61 (78) 95 Nasal Cannula 1.00 03/31/22 08:07 36.4 03/29/22 20:38 99 Capillary Refill : Less Than 3 Seconds General Appearance: No Apparent Distress, Anxious, Chronically ill, Obese Respiratory: Lungs Clear, No Respiratory Distress Cardiovascular: Irregularly Irregular, Tachycardia Gastrointestinal: Normal Bowel Sounds, Soft Neurologic/Psychiatric: Alert, Oriented x3 Results/Procedures Lab Laboratory Tests 03/31/22 04:42 Patient resulted labs reviewed. Imaging: Reviewed Imaging Report Assessment/Plan Assessment and Plan Assess & Plan/Chief Complaint CHF exacerbation CAD Continue on lasix Echo show EF of 45% with grade 2 diastolic dysfunction Accurate I/Os -2L yesterday Cardiology consulted, appreciate recs Atrial fibrillation Rate still uncontrolled on cardizem Plan for cardioversion later this morning Eliquis for stroke ppx HTN Continue home meds Shoulder replacement PT/OT Critical Care Critically Ill Patient Diagnosis/Problems Diagnosis/Problems (1) Acute exacerbation of CHF (congestive heart failure) Status: Acute Qualifiers: Heart failure type: unspecified Qualified Codes: I50.9 - Heart failure, unspecified SUMMER MARTIN MD Mar 31, 2022 10:35
--- NOTE | 2022-03-31 10:57 | Cardioversion ---
Cardioversion PROCEDURE PHYSICIAN: Sierra Warren DATE OF PROCEDURE: 03/31/22 DIRECT EXTERNAL ELECTRICAL CARDIOVERSION: Indications: Atrial Fibrillation with rapid ventricular rate Preoperative diagnoses: Atrial Fibrillation with rapid ventricular rate Postoperative diagnosis: Sinus rhythm, Successful Electrical Cardioversion Anesthesia: By Anesthesia services Complications: None Specimen: None Contrast: 0 Flouroscopy: none Procedure Details: The patient was brought the blood bank laboratory technologist after informed consent was taken, all the risks and complications were explained including the risk of stroke. Electrical cardioversion was carried out with anesthesia support with propofol. 200 joules of synchronized shock was delivered through external patches which promptly restored sinus rhythm. The patient tolerated the procedure well. Conclusions: Successful electrical cardioversion and terminating atrial fibrillation SIERRA WARREN MD Mar 31, 2022 10:57
--- NOTE | 2022-03-31 11:00 | Cardiology Progress Note ---
Subjective Date Seen by Provider: Mar 31, 2022 Time Seen by Provider: 10:57 Subjective/Events-last exam Patient was seen at bedside, laying down comfortably. She was still in atrial fibrillation with rapid ventricular response. Underwent cardioversion and converted to sinus rhythm. Review of Systems HEENT: No Head Aches, No Visual Changes, No Eye Pain, No Ear Pain, No Dysphasia, No Sinus Congestion, No Post Nasal Drip, No Sore Throat, No Other Pulmonary: No Dyspnea, No Cough, No Pleuritic Chest Pain, No Other Cardiovascular: No: Chest Pain, Palpitations, Orthopnea, Paroxysmal Noc. Dyspnea, Edema, Lt Headedness, Other Objective-Cardiology Exam Last Set of Vital Signs Vital Signs 03/29/22 03/31/22 03/31/22 03/31/22 20:38 08:07 10:00 10:30 Temp 36.4 Pulse 62 Resp 23 B/P (MAP) 114/61 Pulse Ox 95 O2 Delivery Nasal Cannula O2 Flow Rate 1.00 FiO2 99 I&O Intake and Output 03/31/22 00:00 Intake Total 1645 ml Output Total 3625 ml Balance -1980 ml Intake Oral 1520 ml IV Total 125 ml Output Urine Total 3625 ml # Bowel Movements 3 General: Alert, Oriented X3, Cooperative HEENT: Atraumatic, PERRLA Neck: Supple, No JVD, No Thyromegaly Lungs: Clear to Auscultation, Normal Air Movement Heart: Regular Rate, Normal S1, Normal S2, Other (Systolic murmur at the left sternal border) Abdomen: Normal Bowel Sounds, Soft, No Tenderness, No Hepatosplenomegaly, No Masses Extremities: No Clubbing, No Cyanosis, No Edema, Normal Pulses, No Tenderness/Swelling Skin: No Rashes, No Breakdown, No Significant Lesion Neuro: Normal Gait, Normal Speech, Strength at 5/5 X4 Ext, Normal Tone, Sensation Intact Psych/Mental Status: Mental Status NL, Mood NL Results Lab Laboratory Tests 03/31/22 04:42 A/P-Cardiology Admission Diagnosis Paroxysmal atrial fibrillation Congestive heart failure Hypertension Tachycardia Assessment/Plan Paroxysmal atrial fibrillation, new onset, difficult to control, borderline hypotensive Underwent CLAUS with electrical cardioversion I started her on amiodarone bolus and a drip. Continue on monitoring Patient was started on oral anticoagulation Congestive heart failure, chronic compensated left ventricular systolic dysfunction, ejection fraction 45 to 50%. Has septal hypokinesis with PA pressure 40 to 45 mmHg. Echo was done on March 28, [address] Chavez History of Takotsubo cardiomyopathy, had a normal ejection fraction by echo with Dr. Shanks in February 2022 Mild coronary artery disease nonobstructive disease by cardiac catheterization done in January [address] Shanks. Mild pulmonary hypertension Chronic left bundle branch block Hypertension, currently hypotensive, monitor blood pressure Obstructive sleep apnea using CPAP History of cholecystectomy, knee replacement surgery. SIERRA FELICIANO MD Mar 31, 2022 11:00
--- NOTE | 2022-03-31 12:02 | Occupational Ther Daily Note ---
OT Current Status-Daily Note Subjective Pt in good spirits, agreeable to OT treatment. Appearance Pt returned to supine in bed, all needs within reach at therapy departure. Mental Status/Objective Patient Orientation: Person, Place, Situation Attachments: IV, Oxygen, Telemetry ADL-Treatment Therapy Code Descriptions/Definitions Functional [place] Measure: 0=Not Assessed/NA 4=Minimal Assistance 1=Total Assistance 5=Supervision or Setup 2=Maximal Assistance 6=Modified [place] 3=Moderate Assistance 7=Complete IndependenceSCALE: Activities may be completed with or without assistive devices. 0-Zvrmfhdwnh-rmwombm completes the activity by him/herself with no assistance from a helper. 5-Set-up or Clean-up Assistance-helper sets up or cleans up; patient completes activity. [place] assists only prior to or following the activity. 4-Supervision or Touching Assistance-helper provides verbal cues and/or touching/steadying and/or contact guard assistance as patient completes activity. Assistance may be provided throughout the activity or intermittently. 3-Partial/Moderate Assistance-helper does LESS THAN HALF the effort. [place] lifts, holds or supports trunk or limbs, but provides less than half the effort. 2-Substantial/Maximal Assistance-helper does MORE THAN HALF the effort. [place] lifts or holds trunk or limbs and provides more than half the effort. 1-Nzcdddfqk-qnvchc does ALL the effort. Patient does none of the effort to complete the activity. Or, the assistance of 2 or more helpers is required for the patient to complete the activity. If activity was not attempted, code reason: 7-Patient Refused. 9-Not Applicable-not attempted and the patient did not perform the activity before the current illness, exacerbation or injury. 10-Not Attempted due to Environmental Limitations-(lack of equipment, weather restraints, etc.). 88-Not Attempted due to Medical Conditions or Safety Concerns. Lower Body Dressing (QC): 3 Toileting Hygiene (QC): 2 (Per report) Pt returning to bed after using commode with assist from RN. Good sitting balance at EOB. OT instructed and educated pt on use of professor of physics to improve independence in LB dressing and reduce burden of care on family. After instruction, pt able to thread BLE's into underwear x2 without difficulty. Clothing management not performed, however anticipate assistance needed with pulling up over L hip secondary to LUE being in a sling. Education also provided on compensatory strategies when donning UB clothing in order to maintain good positioning of shoulder. Education OT Patient Education: Correct positioning, Energy conservation, Modified ADL techniques, Progress toward Goal/Update tx plan, Purpose of tx/functional activities, Reviewed precautions, Safety issues, Transfer techniques, Use of adapted equipment Teaching Recipient: Patient Teaching Methods: Demonstration, Discussion Response to Teaching: Verbalize Understanding, Return Demonstration, Reinfor cement Needed OT Cooler Operator Goals Cooler Operator Goals Time Frame: Apr 18, 2022 Eating (QC): 5 Oral Hygiene (QC): 5 Toileting Hygiene (QC): 4 Shower/Bathe Self (QC): 4 Upper Body Dressing (QC): 3 Lower Body Dressing (QC): 4 On/Off Footwear (QC): 4 1=Demonstrate adherence to instructed precautions during ADL tasks. 2=Patient will verbalize/demonstrate understanding of assistive devices/modifications for ADL. 3=Patient will improve strength/tolerance for activity to enable patient to perform ADL's. OT Education/Plan Problem List/Assessment Assessment: Decreased Activ Tolerance, Decreased UE Strength, Impaired I ADL's, Impaired Self-Care Skills, Restricted Funct UE ROM Pt would benefit from skilled OT services in order to increase RUE strength and activity tolerance, and increase independence with ADLs and functional mobility for safe return home. She would also benefit from LUE Rotator Cuff Repair pro tocol if obtained from surgeon. Discharge Recommendations Plan/Recommendations: Continue POC Equpiment Recommendations-D/C: Clinical Appeals Rn Treatment Plan/Plan of Care Treatment,Training & Education: Yes Patient would benefit from OT for education, treatment and training to promote independence in ADL's, mobility, safety and/or upper extremity function for ADL's. Plan of Care: ADL Retraining, Caregiver Training, Functional Mobility, Orthotic Fitting/Training, UE Funct Exercise/Act, OTHER (LUE rotator cuff repair protocol if obtained from surgeon) Treatment Duration: Apr 18, 2022 Frequency: 3 times per week (3-5x/week) Estimated Hrs Per Day: .25 hour per day Agreement: Yes Rehab Potential: Fair Time/GCodes Start Time: 11:30 Stop Time: 11:41 Total Time Billed (hr/min): 11 Billed Treatment Time 1 visit ADL Serina Andre OT Mar 31, 2022 12:02
--- NOTE | 2022-03-31 14:40 | Physical Therapy Daily Note ---
PT Daily Note-Current Subjective Patient sitting upright in the bed with friends/family in the room upon PT arrival, agreeable to treatment. Patient rates pain at 0/10 currently. Mental Status Patient Orientation: Person, Place, Time, Situation Attachments: Oxygen, Foster Catheter, IV Transfers SCALE: Activities may be completed with or without assistive devices. 2-Uxbnqxgksy-zsjfulk completes the activity by him/herself with no assistance from a helper. 5-Set-up or Clean-up Assistance-helper sets up or cleans up; patient completes activity. [place] assists only prior to or following the activity. 4-Supervision or Touching Assistance-helper provides verbal cues and/or touching/steadying and/or contact guard assistance as patient completes activity. Assistance may be provided throughout the activity or intermittently. 3-Partial/Moderate Assistance-helper does LESS THAN HALF the effort. [place] lifts, holds or supports trunk or limbs, but provides less than half the effort. 2-Substantial/Maximal Assistance-helper does MORE THAN HALF the effort. [place] lifts or holds trunk or limbs and provides more than half the effort. 6-Bgpfybhey-xjwdmi does ALL the effort. Patient does none of the effort to complete the activity. Or, the assistance of 2 or more helpers is required for the patient to complete the activity. If activity was not attempted, code reason: 7-Patient Refused. 9-Not Applicable-not attempted and the patient did not perform the activity before the current illness, exacerbation or injury. 10-Not Attempted due to Environmental Limitations-(lack of equipment, weather restraints, etc.). 88-Not Attempted due to Medical Conditions or Safety Concerns. Roll Left & Right (QC): 4 Sit to Lying (QC): 4 Lying to Sitting/Side of Bed(Q: 4 Sit to Stand (QC): 4 Chair/Ubv-al-Ynguy Xfer(QC): 4 Weight Bearing Right Lower Extremity: Right Full Weight Bearing Left Lower Extremity: Left Full Weight Bearing Gait Training Does the Patient Walk?: Yes Distance: 250 Walk 10 feet (QC): 4 Walk 50 ft with 2 Turns(QC): 4 Walk 150 ft (QC): 4 Gait Persons Needed: 1 Gait Assistive Device: None Assessment Current Status: Good Progress Patient tolerated treatment well. Patient performs all bed mobility and transfers with SBA/CGA. Patient requires assistance for donning left UE sling. Patient ambulates 250 feet with CGA and verbal cues for safety, progression, posture and balance. PT Assisted Goals Clerical And Office Support Workers Goals PT Clerical And Office Support Workers Goals Time Frame: Apr 04, 2022 Roll Left & Right (QC): 6 Sit to Lying (QC): 6 Lying-Sitting on Side/Bed(QC): 6 Sit to Stand (QC): 6 Chair/Pjr-oi-Misex Xfer(QC): 6 Walk 10 feet (QC): 6 Walk 50ft with 2 Turns (QC): 6 Walk 150 ft (QC): 6 Walking 10ft on Uneven Surface: 6 1 Step (curb) (QC): 4 4 Steps (QC): 4 PT Plan Treatment/Plan Treatment Plan: Continue Plan of Care Treatment Plan: Bed Mobility, Education, Functional Activity Jewel, Functional Strength, Gait, Safety, Therapeutic Exercise, Transfers Treatment Duration: Apr 04, 2022 Frequency: 6 times per week Estimated Hrs Per Day: .25 hour per day Patient and/or Family Agrees t: Yes Safety Risks/Education Patient Education: Gait Training, Transfer Techniques Teaching Recipient: Patient Teaching Methods: Demonstration, Discussion Response to Teaching: Verbalize Understanding, Return Demonstration Time/GCodes Time In: 1409 Time Out: 1424 Total Billed Treatment Time: 15 Total Billed Treatment Visit, Gait SCOUT LAGUERRE PT Mar 31, 2022 14:40
[2022-04-01] VITALS (11 sets, daily range): BP systolic 114–138; BP diastolic 52–106
[2022-04-01 05:35] LABS: CALCIUM 9.6 MG/DL (8.5-10.1)
[2022-04-01 05:40] LABS: CREATININE SERUM 0.92 MG/DL (0.60-1.30); PHOSPHORUS 3.2 MG/DL (2.3-4.7)
[2022-04-01 05:42] LABS: MAGNESIUM 1.9 MG/DL (1.6-2.4)
[2022-04-01] MEDS: POTASSIUM CL 10MEQ/50ML IVPB 50 ML IV SCH (05:44)
[2022-04-01] MEDS: KCL 20 MEQ TAB (K-DUR) PO SCH (05:45)
[2022-04-01] MEDS: MAGNESIUM 1 GM/100 ML IVPB 100 ML IV SCH (05:45)
[2022-04-01 06:27] LABS: BASOPHILS % (AUTO) 0 % (0-10); EOSINOPHILS # (AUTO) 0.2 10^3/uL (0.0-0.3); EOSINOPHILS % (AUTO) 2 % (0-10); HEMATOCRIT 33 % (35-52); HEMOGLOBIN 10.9 g/dL (11.5-16.0); LYMPHOCYTES # (AUTO) 1.4 10^3/uL (1.0-4.0); LYMPHOCYTES % (AUTO) 19 % (12-44); MEAN CORPUSCULAR HEMOGLOBIN 32 pg (25-34); MEAN CORPUSCULAR HGB CONC 33 g/dL (32-36); MEAN CORPUSCULAR VOLUME 97 fL (80-99); MEAN PLATELET VOLUME 11.7 fL (9.0-12.2); MONOCYTES # (AUTO) 0.6 10^3/uL (0.0-1.0); MONOCYTES % (AUTO) 8 % (0-12); NEUTROPHILS # (AUTO) 5.1 10^3/uL (1.8-7.8); NEUTROPHILS % (AUTO) 70 % (42-75); PLATELET COUNT 269 10^3/uL (130-400); WHITE BLOOD COUNT 7.2 10^3/uL (4.3-11.0)
[2022-04-01] MEDS: APIXABAN 5 MG (ELIQUIS) TABLET PO SCH (09:09)
[2022-04-01] MEDS: DULoxetine 30 MG (CYMBALTA) CAP PO SCH (09:09)
[2022-04-01] MEDS: ALLOPURINOL 100 MG (ZYLOPRIM) TAB PO SCH (09:10)
[2022-04-01] MEDS: FUROSEMIDE 40 MG/4 ML INJ (LASIX) IV SCH (09:10)
--- NOTE | 2022-04-01 09:17 | Cardiology Progress Note ---
Subjective Date Seen by Provider: Apr 01, 2022 Time Seen by Provider: 09:16 Subjective/Events-last exam Patient was seen at bedside, laying down comfortably Feeling better. Maintaining sinus rhythm Review of Systems General: No Chills, No Night Sweats, No Fatigue, No Malaise, No Appetite, No Other HEENT: No Head Aches, No Visual Changes, No Eye Pain, No Ear Pain, No Dysphasia, No Sinus Congestion, No Post Nasal Drip, No Sore Throat, No Other Pulmonary: No Dyspnea, No Cough, No Pleuritic Chest Pain, No Other Cardiovascular: No: Chest Pain, Palpitations, Orthopnea, Paroxysmal Noc. Dyspnea, Edema, Lt Headedness, Other Objective-Cardiology Exam Last Set of Vital Signs Vital Signs 03/29/22 04/01/22 04/01/22 20:38 08:00 09:00 Temp 36.3 Pulse 68 Resp 15 B/P (MAP) 138/96 (110) Pulse Ox 94 O2 Delivery Nasal Cannula O2 Flow Rate 1.00 FiO2 99 I&O Intake and Output 04/01/22 00:00 Intake Total 2278 ml Output Total 2975 ml Balance -697 ml Intake Oral 1975 ml IV Total 303 ml Output Urine Total 2975 ml # Bowel Movements 1 General: Alert, Oriented X3, Cooperative HEENT: Atraumatic, PERRLA Neck: Supple, No JVD, No Thyromegaly Lungs: Clear to Auscultation, Normal Air Movement Heart: Regular Rate, Normal S1, Normal S2, Other (Systolic murmur at the left sternal border) Abdomen: Normal Bowel Sounds, Soft, No Tenderness, No Hepatosplenomegaly, No Masses Extremities: No Clubbing, No Cyanosis, No Edema, Normal Pulses, No Tenderness/Swelling Skin: No Rashes, No Breakdown, No Significant Lesion Neuro: Normal Gait, Normal Speech, Strength at 5/5 X4 Ext, Normal Tone, Sensation Intact Psych/Mental Status: Mental Status NL, Mood NL Results Lab Laboratory Tests 04/01/22 04:36 A/P-Cardiology Admission Diagnosis Paroxysmal atrial fibrillation Congestive heart failure Hypertension Tachycardia Assessment/Plan Paroxysmal atrial fibrillation, new onset, difficult to control, borderline hypotensive Underwent CLAUS with electrical cardioversion I discussed with her the management plan, recommended continuation with amiodarone and Eliquis as an outpatient. Congestive heart failure, chronic compensated left ventricular systolic dysfunction, ejection fraction 45 to 50%. Has septal hypokinesis with PA pressure 40 to 45 mmHg. Echo was done on March 28, [address] Chavez History of Takotsubo cardiomyopathy, had a normal ejection fraction by echo with Dr. Shanks in February 2022 Mild coronary artery disease nonobstructive disease by cardiac catheterization done in January [address] Shanks. Mild pulmonary hypertension Chronic left bundle branch block Hypertension, currently hypotensive, monitor blood pressure Obstructive sleep apnea using CPAP History of cholecystectomy, knee replacement surgery. Patient will follow-up with her primary stylist apprentice SIERRA Johnson MD Apr 01, 2022 09:17
[2022-04-01] MEDS ORDERED: APIX5TAB PO (09:41)
[2022-04-01] MEDS ORDERED: AMIO200T65 PO (09:41)
[2022-04-01] MEDS ORDERED: DILT180C85 PO (09:41)
[2022-04-01] MEDS ORDERED: MTP25TSR PO (09:41)
--- NOTE | 2022-04-01 09:43 | D/C HH Face to Face Order ---
D/C Face to Face Orders Instructions for Patient Via [facility], Patient Instructions/FollowUp: Please continue to take your medications as written. Please follow up with your primary care doctor and your primary termite exterminator to follow up this hospital stay. Physician to follow Patient: Dr Enriquez Discharge Diet for Home: Cardiac Diet Patient Data-Allergies,Ht & Wt Patient Allergies: Coded Allergies: Penicillins (Verified Allergy, Unknown, 06/10/19) adhesive tape (Verified Allergy, Unknown, 06/10/19) amoxicillin (Verified Allergy, Unknown, 06/10/19) celecoxib (Verified Allergy, Unknown, 06/10/19) dapsone (Verified Allergy, Unknown, 06/10/19) succinylcholine (Verified Allergy, Unknown, 06/10/19) Home Health Need/Face to Face Date of Face to Face: Apr 01, 2022 Clinical Findings: Generalized weakness and fatigue, Shortness of breath I have seen Pt [id number]: Yes Discharged To: Home Diagnosis/Conditions: Atrial fibrillation, heart failure, shoulder replacement Patient is Homebound due to: Muscle weakness Homebound Status Due to the above stated illness, injury or surgical procedure (medical condition or diagnosis) and associated clinical findings, the patient is homebound because of his/her inability to leave home except with aid of a supportive device and/or person AND leaving the home requires a considerable and taxing effort or is medically contraindicated. Pt req the following assistanc: Aid of another person Home Health Nursing Orders Home Health Services Order: Nursing Services, [place] [facility]-Evaluate & Treat, Physical Therapy-Evaluate & Treat Home Health Infusion Therapy Line Start Date: Mar 28, 2022 Therapy Orders Therapy Orders: OT (must have SN or PT order), Physical Therapy Therapy Specific Orders: Eval assistive deivces, Teach enviro modifications/safety, Gait training, Increase strength/endurance Certify Stmt I certify that this patient is under my care and that I, a nurse practitioner or a physician; a physician's assistant working with me, had a face to face encounter that - meets the physician face to face encounter requirements with this patient as dated. SUMMER MARTIN MD Apr 01, 2022 09:43
--- NOTE | 2022-04-01 09:47 | Discharge Summary ---
Diagnosis/Chief Complaint Date of Admission Mar 31, 2022 at 14:02 Date of Discharge Discharge Date: Apr 01, 2022 Admission Diagnosis CHF exacerbation Primary Care Teresita Enriquez MD Discharge Diagnosis (1) Acute exacerbation of CHF (congestive heart failure) Status: Acute Discharge Summary Procedures/Consulations Cardiology Discharge Physical Exam Allergies: Coded Allergies: Penicillins (Verified Allergy, Unknown, 06/10/19) adhesive tape (Verified Allergy, Unknown, 06/10/19) amoxicillin (Verified Allergy, Unknown, 06/10/19) celecoxib (Verified Allergy, Unknown, 06/10/19) dapsone (Verified Allergy, Unknown, 06/10/19) succinylcholine (Verified Allergy, Unknown, 06/10/19) Vitals & I&Os Vital Signs Date Time Temp Pulse Resp B/P (MAP) Pulse Ox O2 Delivery O2 Flow Rate FiO2 04/01/22 12:00 36.4 04/01/22 12:00 72 25 114/68 (83) 91 Nasal Cannula 1.00 03/29/22 20:38 99 General Appearance: No Apparent Distress, Chronically ill, Obese Respiratory: Lungs Clear, No Respiratory Distress Cardiovascular: Regular Rate, Rhythm, No Murmur Neurologic/Psychiatric: Alert, Oriented x3 Hospital Course Patient was admitted to the hospital secondary to acutely decompensated systolic heart failure. She was treated with IV diuretics and diuresed well. She did develop atrial fibrillation with rapid ventricular rate and required a Cardizem drip. Her rate was difficult to control with Cardizem, metoprolol, and digoxin. She remained in atrial fibrillation so cardiology elected to proceed with cardioversion. This was successful and she was started on an amiodarone drip following the cardioversion. She maintained sinus rhythm and was titrated off of oxygen. She was discharged home in stable and improved condition to follow- up with her primary care doctor, Dr. Enriquez and with her primary grounds keeper. Home health was ordered. Home oxygen study was done as well. Labs (last 24 hrs) Laboratory Tests 04/01/22 04:36: White Blood Count 7.2, Red Blood Count 3.43L, Hemoglobin 10.9L, Hematocrit 33L, Mean Corpuscular Volume 97, Mean Corpuscular Hemoglobin 32, Mean Corpuscular Hemoglobin Concent 33, Red Cell Distribution Width 13.8, Platelet Count 269, Mean Platelet Volume 11.7, Immature Granulocyte % (Auto) 0, Neutrophils (%) (Auto) 70, Lymphocytes (%) (Auto) 19, Monocytes (%) (Auto) 8, Eosinophils (%) (Auto) 2, Basophils (%) (Auto) 0, Neutrophils # (Auto) 5.1, Lymphocytes # (Auto) 1.4, Monocytes # (Auto) 0.6, Eosinophils # (Auto) 0.2, Basophils # (Auto) 0.0, Immature Granulocyte # (Auto) 0.0, Sodium Level 137, Potassium Level 4.0, Chloride Level 97L, Carbon Dioxide Level 27, Anion Gap 13, Blood Urea Nitrogen 19H, Creatinine 0.92, Estimat Glomerular Filtration Rate 65, BUN/Creatinine Ratio 21, Glucose Level 103, Calcium Level 9.6, Phosphorus Level 3.2, Magnesium Level 1.9 Microbiology 03/29/22 MRSA Screen - Final, Complete MRSA not isolated Patient resulted labs reviewed. Pending Labs Laboratory Tests 04/01/22 04:36: White Blood Count 7.2, Red Blood Count 3.43, Hemoglobin 10.9, Hematocrit 33, Mean Corpuscular Volume 97, Mean Corpuscular Hemoglobin 32, Mean Corpuscular Hemoglobin Concent 33, Red Cell Distribution Width 13.8, Platelet Count 269, Mean Platelet Volume 11.7, Immature Granulocyte % (Auto) 0, Neutrophils (%) (Auto) 70, Lymphocytes (%) (Auto) 19, Monocytes (%) (Auto) 8, Eosinophils (%) (Auto) 2, Basophils (%) (Auto) 0, Neutrophils # (Auto) 5.1, Lymphocytes # (Auto) 1.4, Monocytes # (Auto) 0.6, Eosinophils # (Auto) 0.2, Basophils # (Auto) 0.0, Immature Granulocyte # (Auto) 0.0, Sodium Level 137, Potassium Level 4.0, Chloride Level 97, Carbon Dioxide Level 27, Anion Gap 13, Blood Urea Nitrogen 19, Creatinine 0.92, Estimat Glomerular Filtration Rate 65, BUN/Creatinine Ratio 21, Glucose Level 103, Calcium Level 9.6, Phosphorus Level 3.2, Magnesium Level 1.9 Imaging: Reviewed Imaging Report Discussion & Recommendations Discharge Planning: >30 minutes discharge planning Discharge Home Medications: Active Scripts Active Lasix (Furosemide) 40 Mg Tablet 40 Mg PO DAILY Amiodarone HCl 200 Mg Tablet 200 Mg PO BID Take two tabs twice a day for 1 week then just 1 tab twice a day until seen by cardiology Diltiazem 24Hr ER (Diltiazem HCl) 180 Mg Cap.er.24h 360 Mg PO DAILY Eliquis (Apixaban) 5 Mg Tablet 5 Mg PO BID Metoprolol Succinate 25 Mg Tab.er.24h 25 Mg PO BID Reported Hydrocodone-Acetamin 10-325 mg (Hydrocodone/Acetaminophen) 10 Mg-325 Mg Tablet 1 Ea PO Q6H PRN Women's Multivitamin Gummies (Folic Acid/Multivit-Minerals) 200 Mcg Tab.chew 2 Ea PO DAILY Vitamin C (Ascorbate Calcium) 500 Mg Tablet 500 Mg PO DAILY Women's 50 Billion Probiotc Cp (Lacto No.76/Bifido/Fos/Larch) 25B-25B-50 Capsule 1 Each PO DAILY Allopurinol 100 Mg Tablet 100 Mg PO DAILY Duloxetine HCl 60 Mg Capsule.dr 60 Mg PO DAILY Ramipril 10 Mg Capsule 10 Mg PO DAILY Instructions to patient/family Please see electronic discharge instructions given to patient. Problem Qualifiers (1) Acute exacerbation of CHF (congestive heart failure): Heart failure type: unspecified Qualified Codes: I50.9 - Heart failure, unspecified SUMMER MARTIN MD Apr 01, 2022 09:47
[2022-04-01] MEDS ORDERED: FURO-124 PO (10:45)
== END 2022-04-01 15:45 | disposition home or self-care (01) | DRG 291 ==
LOC: EDUNIT# 06:57 → ER FS 07:01 → CSD 11:17 → ICU 03-29 05:08 → OBSVTOIN 03-31 14:02
PROVIDERS: ADMIT Family Medicine; ATTEND Family Medicine
PROC: 5A2204Z Restoration of Cardiac Rhythm, Single (ICD-10-PCS; principal; 2022-03-31)
DX: I11.0 Hypertensive heart disease with heart failure (principal); I50.43 Acute on chronic combined systolic (congestive) and diastolic (congestive) heart failure; I25.10 Atherosclerotic heart disease of native coronary artery without angina pectoris; J44.9 Chronic obstructive pulmonary disease, unspecified; Z96.612 Presence of left artificial shoulder joint; Z96.653 Presence of artificial knee joint, bilateral; Z20.822 Contact with and (suspected) exposure to COVID-19; M19.90 Unspecified osteoarthritis, unspecified site; I42.9 Cardiomyopathy, unspecified; I48.0 Paroxysmal atrial fibrillation; I44.7 Left bundle-branch block, unspecified; G47.33 Obstructive sleep apnea (adult) (pediatric); Z90.49 Acquired absence of other specified parts of digestive tract
CPT/HCPCS: 36415; 51702; 71045; 71275; 80048; 80053; 80162; 81000; 83605; 83735; 83880; 84100; 84145; 84484; 85025; 85027; 85379; 85610; 85730; 87081; 87636; 93005; 93306; 93312; 93320; 93325; 94761; G0378; Q9967

== ENCOUNTER 2022-07-04 19:20 | Emergency (ER) | payer MEDICARE ==
[~2022-07-04] VITALS: Ht 160 cm; Wt 116.8 kg
[~2022-07-04 19:20] MED LIST changes: +ALLO100T PO; +AMIO200T65 PO; +APIX5TAB PO; +ASCO-262 PO; +DILT180C85 PO; +DULO60CA59 PO; +FOLI200T11 PO; +FURO-124 PO; +HYDR-3820 PO; +METO50TA7 PO; +MTP25TSR PO; +RAMI10CA69 PO; +[UNRECOGNIZED DRUG - CODE] PO
--- NOTE | 2022-07-04 19:26 | ED General ---
General Stated Complaint: SOB,FEET SWELLING History of Present Illness Date Seen by Provider: Jul 04, 2022 Time Seen by Provider: 19:23 Initial Comments 76-year-old female presents with generalized malaise has been going on for least a couple months. She reports that she "just has not felt good since she was in the hospital in April" for atrial fib and chf exacerbation. That over the last week she has had a little bit more bilateral lower extremity swelling. That she has some shortness of breath that been going on for a while. Patient reports that she took her grand child to urgent care [facility] and he was positive for strep. Patient has not followed up recently with her primary care provider. No reports of fever, chills, nausea or vomiting. Allergies and Home Medications Allergies Coded Allergies: Penicillins (Verified Allergy, Unknown, 06/10/19) adhesive tape (Verified Allergy, Unknown, 06/10/19) amoxicillin (Verified Allergy, Unknown, 06/10/19) celecoxib (Verified Allergy, Unknown, 06/10/19) dapsone (Verified Allergy, Unknown, 06/10/19) succinylcholine (Verified Allergy, Unknown, 06/10/19) Patient Home Medication List Home Medication List Reviewed: Yes Allopurinol (Allopurinol) 100 Mg Tablet, 100 MG PO DAILY, (Reported) Entered as Reported by: PEDRO PIERRE on 03/28/221433 Amiodarone HCl (Amiodarone HCl) 200 Mg Tablet, 200 MG PO BID Prescribed by: SUMMER MARTIN on 04/01/22940 Apixaban (Eliquis) 5 Mg Tablet, 5 MG PO BID Prescribed by: SUMMER MARTIN on 04/01/22940 Ascorbate Calcium (Vitamin C) 500 Mg Tablet, 500 MG PO DAILY, (Reported) Entered as Reported by: PEDRO PIERRE on 03/28/22 143 Diltiazem HCl (Diltiazem 24Hr ER) 180 Mg Cap.er.24h, 360 MG PO DAILY Prescribed by: SUMMER MARTIN on 04/01/22940 Duloxetine HCl (Duloxetine HCl) 60 Mg Capsule.dr, 60 MG PO DAILY, (Reported) Entered as Reported by: PEDRO PIERRE on 03/28/22 143 Folic Acid/Multivit-Minerals (Women's Multivitamin Gummies) 200 Mcg Tab.chew, 2 EA PO DAILY, (Reported) Entered as Reported by: PEDRO PIERRE on 03/28/22 1434 Furosemide (Lasix) 40 Mg Tablet, 40 MG PO DAILY Prescribed by: SUMMER MARTIN on 04/01/22 1045 Hydrocodone/Acetaminophen (Hydrocodone-Acetamin 10-325 mg) 10 Mg-325 Mg Tablet, 1 EA PO Q6H PRN for PAIN-MODERATE (5-7), (Reported) Entered as Reported by: PEDRO PIERRE on 03/28/22 1435 Lacto No.76/Bifido/Fos/Larch (Women's 50 Billion Probiotc Cp) 25B-25B-50 C apsule, 1 EACH PO DAILY, (Reported) Entered as Reported by: PEDRO PIERRE on 03/28/22 1434 Metoprolol Succinate (Metoprolol Succinate) 25 Mg Tab.er.24h, 25 MG PO BID Prescribed by: SUMMER MARTIN on 04/01/22 0941 Ramipril (Ramipril) 10 Mg Capsule, 10 MG PO DAILY, (Reported) Entered as Reported by: PEDRO PIERRE on 03/28/22 1434 Review of Systems Review of Systems Constitutional: No chills, No fever; malaise Respiratory: dyspnea on exertion, short of breath Cardiovascular: No chest pain; edema; No palpitations Genitourinary: no symptoms reported Musculoskeletal: no symptoms reported Skin: no symptoms reported Past Rthbiax-Jlmaao-Ajcefk Hx Immunizations Up To Date Tetanus Booster (TDap): More than 5yrs Seasonal Allergies Seasonal Allergies: No Past Medical History Surgery/Hospitalization HX: COPD, A-fib, CHF Surgeries: Yes (bilateral knee replacements, carpal tunnel) Hysterectomy, Orthopedic Respiratory: No Cardiac: Yes (CHF) Cardiomyopathy, Coronary Artery Disease, Hypertension 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 oz. kg; 41.74 BMI Method: General Appearance: No Apparent Distress, WD/WN HEENT: PERRL/EOMI Neck: Normal Inspection, Non Tender, Supple Respiratory: Lungs Clear, Normal Breath Sounds Cardiovascular: Regular Rate, Rhythm, Other (1+ bilateral lower extremity edema) Gastrointestinal: Non Tender, Soft Neurologic/Psychiatric: Alert, Oriented x3, No Motor/Sensory Deficits, Normal Mood/Affect, shackler II-XII Norm as Tested Skin: Normal Color, Warm/Dry Progress/Results/Core Measures Suspected Sepsis SIRS Temperature: Pulse: Respiratory Rate: Laboratory Tests 07/04/22 19:50: White Blood Count 7.4 Blood Pressure / Mean: Laboratory Tests 07/04/22 19:50: Creatinine 1.12, Platelet Count 202, Total Bilirubin 0.3 Results/Orders Lab Results Laboratory Tests Test 07/04/22 19:50 07/04/22 20:15 Range/Units White Blood Count 7.4 4.3-11.0 10^3/uL Red Blood Count 3.06 L 3.80-5.11 10^6/uL Hemoglobin 8.7 L 11.5-16.0 g/dL Hematocrit 28 L 35-52 % Mean Corpuscular Volume 91 80-99 fL Mean Corpuscular Hemoglobin 28 25-34 pg Mean Corpuscular Hemoglobin Concent 31 L 32-36 g/dL Red Cell Distribution Width 15.1 H 10.0-14.5 % Platelet Count 202 130-400 10^3/uL Mean Platelet Volume 11.3 9.0-12.2 fL Immature Granulocyte % (Auto) 0 % Neutrophils (%) (Auto) 65 42-75 % Lymphocytes (%) (Auto) 25 12-44 % Monocytes (%) (Auto) 8 0-12 % Eosinophils (%) (Auto) 2 0-10 % Basophils (%) (Auto) 1 0-10 % Neutrophils # (Auto) 4.8 1.8-7.8 10^3/uL Lymphocytes # (Auto) 1.8 1.0-4.0 10^3/uL Monocytes # (Auto) 0.6 0.0-1.0 10^3/uL Eosinophils # (Auto) 0.2 0.0-0.3 10^3/uL Basophils # (Auto) 0.0 0.0-0.1 10^3/uL Immature Granulocyte # (Auto) 0.0 0.0-0.1 10^3/uL Sodium Level 139 135-145 MMOL/L Potassium Level 4.1 3.6-5.0 MMOL/L Chloride Level 102 98-107 MMOL/L Carbon Dioxide Level 27 21-32 MMOL/L Anion Gap 10 5-14 MMOL/L Blood Urea Nitrogen 23 H 7-18 MG/DL Creatinine 1.12 0.60-1.30 MG/DL Estimat Glomerular Filtration Rate 51 BUN/Creatinine Ratio 21 Glucose Level 126 H 70-105 MG/DL Calcium Level 10.3 H 8.5-10.1 MG/DL Corrected Calcium 10.2 H 8.5-10.1 MG/DL Magnesium Level 2.0 1.6-2.4 MG/DL Total Bilirubin 0.3 0.1-1.0 MG/DL Aspartate Amino Transf (AST/SGOT) 18 5-34 U/L Alanine Aminotransferase (ALT/SGPT) 14 0-55 U/L Alkaline Phosphatase 81 40-136 U/L Troponin I < 0.30 <0.30 NG/ML Pro-B-Type Natriuretic Peptide 1065.0 H <450.0 PG/ML Total Protein 6.8 6.4-8.2 GM/DL Albumin 4.1 3.2-4.5 GM/DL Influenza Type A (RT-PCR) Not Detected Not Detecte Influenza Type B (RT-PCR) Not Detected Not Detecte SARS-CoV-2 RNA (RT-PCR) Not Detected Not Detecte Group A Streptococcus Screen NEGATIVE NEGATIVE My Orders Orders - LEATHA FLOYD DO Cbc With Automated Diff (07/04/22 19:34) Comprehensive Metabolic Panel (07/04/22 19:34) Magnesium (07/04/22 19:34) Probnp Fs (07/04/22 19:34) Troponin I Fs (07/04/22 19:34) Ekg Tracing (07/04/22 19:34) Chest 1 View Ap/Pa Only (07/04/22 19:34) Rapid Strep A Screen (07/04/22 19:34) Influenza A And B By Pcr (07/04/22 19:34) Covid 19 Inhouse Test (07/04/22 19:34) Vital Signs/I&O Capillary Refill : Progress Note : Progress Note Patient with mild edema in her bilateral lower ankles. Patient with no acute findings on chest x-ray, EKG. She does have a significant provement in her BNP from previous. I discussed with her that I would recommend she starts with compression stockings follows up with her primary care provider and her export specialist for medication review. She is stable and discharged home ECG Initial ECG Impression Date: Jul 04, 2022 Initial ECG Impression Time: 19:49 Initial ECG Rate: 68 Initial ECG Rhythm: Normal Sinus Initial ECG Intervals LBBB Initial ECG Comparisson: Unchanged (03/31/22) Comment sinus, LBBB, Left axias deviation, unchanged from 03/31/22 Diagnostic Imaging Diagonstic Imaging: Xray Plain Films/CT/US/NM/MRI: chest Comments Date of Exam:07/04/22 CHEST 1 VIEW AP/PA ONLY INDICATION: Shortness of breath. COMPARISON is made with prior exam of 03/28/2022. FINDINGS: The heart size, mediastinal configuration, and pulmonary vascularity are within normal limits. There is no pleural effusion, pneumothorax, or pneumonia. The osseous structures are unremarkable. IMPRESSION: No acute cardiopulmonary abnormality. Departure Impression Primary Impression: Bilateral lower extremity edema Disposition: 01 HOME, SELF-CARE Condition: Stable Departure-Patient Inst. Referrals: DEMETRIA VANN MD (PCP/Family) Primary Care Physician Patient Instructions: Dependent Edema (DC) Add. Discharge Instructions: Recommend he start with compression stockings, please make an appointment to review your medications with your primary care provider to be sure they are optimized. LEATHA FLOYD DO Jul 04, 2022 19:26
--- NOTE | 2022-07-04 19:52 | Diagnostic Imaging Report ---
INDICATION: Shortness of breath. COMPARISON is made with prior exam of 03/28/2022. FINDINGS: The heart size, mediastinal configuration, and pulmonary vascularity are within normal limits. There is no pleural effusion, pneumothorax, or pneumonia. The osseous structures are unremarkable. IMPRESSION: No acute cardiopulmonary abnormality. Dictated by: Dictated on workstation # [id number]
[2022-07-04 20:00] LABS: BASOPHILS % (AUTO) 1 % (0-10); EOSINOPHILS # (AUTO) 0.2 10^3/uL (0.0-0.3); EOSINOPHILS % (AUTO) 2 % (0-10); HEMATOCRIT 28 % (35-52); HEMOGLOBIN 8.7 g/dL (11.5-16.0); LYMPHOCYTES # (AUTO) 1.8 10^3/uL (1.0-4.0); LYMPHOCYTES % (AUTO) 25 % (12-44); MEAN CORPUSCULAR HEMOGLOBIN 28 pg (25-34); MEAN CORPUSCULAR HGB CONC 31 g/dL (32-36); MEAN CORPUSCULAR VOLUME 91 fL (80-99); MEAN PLATELET VOLUME 11.3 fL (9.0-12.2); MONOCYTES # (AUTO) 0.6 10^3/uL (0.0-1.0); MONOCYTES % (AUTO) 8 % (0-12); NEUTROPHILS # (AUTO) 4.8 10^3/uL (1.8-7.8); NEUTROPHILS % (AUTO) 65 % (42-75); PLATELET COUNT 202 10^3/uL (130-400); WHITE BLOOD COUNT 7.4 10^3/uL (4.3-11.0)
[2022-07-04 20:29] LABS: BUN/CREATININE RATIO 21; CARBON DIOXIDE 27 MMOL/L (21-32); CHLORIDE 102 MMOL/L (98-107); CREATININE SERUM 1.12 MG/DL (0.60-1.30); GFR ESTIMATED 51; POTASSIUM 4.1 MMOL/L (3.6-5.0); SODIUM 139 MMOL/L (135-145)
[2022-07-04 20:30] LABS: ALANINE AMINOTRANSFERASE 14 U/L (0-55); ALBUMIN 4.1 GM/DL (3.2-4.5); ALKALINE PHOSPHATASE 81 U/L (40-136); BILIRUBIN,TOTAL 0.3 MG/DL (0.1-1.0); CALCIUM 10.3 MG/DL (8.5-10.1); GLUCOSE 126 MG/DL (70-105); TOTAL PROTEIN 6.8 GM/DL (6.4-8.2)
[2022-07-04 21:00] VITALS: BP 124/65
== END 2022-07-04 21:00 | disposition home or self-care (01) ==
LOC: EDUNIT# 19:20 → ER FS 19:21
DX: R60.0 Localized edema (principal); Z20.822 Contact with and (suspected) exposure to COVID-19
CPT/HCPCS: 36415; 71045; 80053; 83735; 83880; 84484; 85025; 87430; 87636; 93005

== ENCOUNTER → 2022-09-06 | Outpatient (CLI) | payer MEDICARE ==
[2022-09-06 01:01] LABS: BILIRUBIN,URINE NEGATIVE (NEGATIVE); CLARITY,URINE SL CLOUDY; COLOR,URINE YELLOW; GLUCOSE, URINE (UA) NEGATIVE (NEGATIVE); KETONES,URINE NEGATIVE (NEGATIVE); LEUKOCYTE ESTERASE ,URINE NEGATIVE (NEGATIVE); NITRITE,URINE POSITIVE (NEGATIVE); PROTEIN,URINE NEGATIVE (NEGATIVE)
[2022-09-06 01:11] LABS: BACTERIA,URINE LARGE /HPF; HYALINE CASTS, URINE RARE /LPF; WBC,URINE 0-2 /HPF
== END ==
LOC: PVFS 00:15
PROVIDERS: ATTEND Family Medicine
DX: R35.0 Frequency of micturition (principal)
CPT/HCPCS: 81000; 87088

== ENCOUNTER → 2022-09-22 | Outpatient (CLI) | payer MEDICARE ==
--- NOTE | 2022-09-22 14:21 | Diagnostic Imaging Report ---
EXAMINATION: Right ankle radiographs, 3 views. COMPARISON: None. HISTORY: 77-year-old female, right ankle pain. FINDINGS: There is a small calcaneal heel spur. There is very mild degenerative type enthesopathy at the Achilles tendon insertion. There is no identified acute fracture. The alignment of the ankle mortise is unremarkable. There is no tibiotalar joint effusion. There is reticulation of the subcutaneous fat to the level of the distal tibia and fibula likely reflecting nonspecific subcutaneous edema. IMPRESSION: 1. No acute bony abnormality of the right ankle. 2. Mild degenerative type calcaneal enthesopathy. Dictated by: Dictated on workstation # [id number]
== END ==
LOC: RAD FS 13:19
PROVIDERS: ATTEND Nurse Practitioner
DX: M19.071 Primary osteoarthritis, right ankle and foot (principal)
CPT/HCPCS: 73610

== ENCOUNTER 2022-11-06 15:03 | Inpatient (IN) | payer MEDICARE ==
[~2022-11-06] VITALS: Ht 163 cm; Wt 109.5 kg
[~2022-11-06 15:03] MED LIST changes: -ALPR0.25 PO; -CYAN500T8 PO; -DILT180C82 PO; -FURO40TA4 PO; -MELA3TAB39 PO
[2022-11-06 16:52] LABS: BASOPHILS % (AUTO) 0 % (0-10); EOSINOPHILS % (AUTO) 0 % (0-10); HEMATOCRIT 24 % (35-52); LYMPHOCYTES # (AUTO) 1.1 10^3/uL (1.0-4.0); LYMPHOCYTES % (AUTO) 36 % (12-44); MEAN CORPUSCULAR HEMOGLOBIN 21 pg (25-34); MEAN CORPUSCULAR HGB CONC 28 g/dL (32-36); MEAN CORPUSCULAR VOLUME 75 fL (80-99); MEAN PLATELET VOLUME 10.5 fL (9.0-12.2); MONOCYTES # (AUTO) 0.6 10^3/uL (0.0-1.0); MONOCYTES % (AUTO) 19 % (0-12); NEUTROPHILS # (AUTO) 1.4 10^3/uL (1.8-7.8); NEUTROPHILS % (AUTO) 45 % (42-75); PLATELET COUNT 224 10^3/uL (130-400); WHITE BLOOD COUNT 3.1 10^3/uL (4.3-11.0)
[2022-11-06 16:53] LABS: HEMOGLOBIN 6.8 g/dL (11.5-16.0)
--- NOTE | 2022-11-06 16:54 | ED Respiratory ---
General Chief Complaint: Respiratory Problems Stated Complaint: RESPITORY SWELLING IN LEGS Nursing Triage Note: PT AMB TO TRIAGE WITH DAUGHTER WITH COMPLAINT OF SOA, FATIGUE, AND BILATERAL LOWER EXTREMITY SWELLING. STATES HAD BLOOD WORK TODAY, HGB WAS 6.6. SENT BY PCP FOR FURTHER EVALUATION. DENIES DARK OR BLOODY STOOLS. Source: patient Exam Limitations: no limitations History of Present Illness Date Seen by Provider: Nov 06, 2022 Time Seen by Provider: 16:35 Initial Comments Patient is a 77-year-old female who presents to the emergency room with a chief complaint of profound fatigue, shortness of breath on exertion, generalized weakness. She has also been having some lower extremity swelling. She was seen and evaluated at [facility] clinic earlier today and found to have low hemoglobin. Patient denies any hemoptysis, GI bleeding, coffee-ground emesis, blood in her urine. No abnormal vaginal discharge. Denies abdominal pain. She has had b lood transfusion in the past however remotely, many years ago. She does not drink alcohol. Denies any rashes. No fevers or chills. Denies URI symptoms. No chest pain. She is chronically anticoagulated on meds for A-fib. Timing/Duration: other (33 weeks) Severity: moderate Associated Symptoms: denies symptoms Allergies and Home Medications Allergies Coded Allergies: Penicillins (Verified Allergy, Unknown, 06/10/19) adhesive tape (Verified Allergy, Unknown, 06/10/19) amoxicillin (Verified Allergy, Unknown, 06/10/19) celecoxib (Verified Allergy, Unknown, 06/10/19) dapsone (Verified Allergy, Unknown, 06/10/19) succinylcholine (Verified Allergy, Unknown, 06/10/19) Patient Home Medication List Home Medication List Reviewed: Yes Allopurinol (Allopurinol) 100 Mg Tablet, 100 MG PO DAILY, (Reported) Entered as Reported by: PEDRO PIERRE on 03/28/22 1434 Last Action: Continued Alprazolam (Xanax) 0.25 Mg Tablet, 0.25 MG PO BID PRN for ANXIETY, (Reported) Entered as Reported by: PEDRO PIERRE on 11/07/22 1154 Last Action: Continued Amiodarone HCl (Amiodarone HCl) 200 Mg Tablet, 200 MG PO DAILY, (Reported) Entered as Reported by: PEDRO PIERRE on 4/18/23 1154 Last Action: Continued Apixaban (Eliquis) 5 Mg Tablet, 5 MG PO BID, (Reported) Entered as Reported by: PEDRO PIERRE on 11/07/221153 Last Action: Held Cyanocobalamin (Vitamin B-12) (Vitamin B-12) 500 Mcg Tablet, 500 MCG PO DAILY, (Reported) Entered as Reported by: PEDRO PIERRE on 11/07/221153 Last Action: Held Diltiazem HCl (Diltiazem ER) 180 Mg Capsule.er, 180 MG PO DAILY, (Reported) Entered as Reported by: PEDRO PIERRE on 11/07/221153 Last Action: Held Duloxetine HCl (Duloxetine HCl) 60 Mg Capsule.dr, 60 MG PO DAILY, (Reported) Entered as Reported by: PEDRO PIERRE on 03/28/221433 Last Action: Held Furosemide (Furosemide) 40 Mg Tablet, 20-40 MG PO DAILY, (Reported) Entered as Reported by: PEDRO PIERRE on 11/07/221153 Last Action: Held Melatonin (Melatonin) 3 Mg Tablet, 6 MG PO HS PRN for SLEEP, (Reported) Entered as Reported by: PEDRO PIERRE on 11/07/221153 Last Action: Reviewed Metoprolol Succinate (Metoprolol Succinate) 50 Mg Tab.er.24h, 25 MG PO BID, (Reported) Entered as Reported by: PEDRO PIERRE on 11/07/221153 Last Action: Continued Ramipril (Ramipril) 10 Mg Capsule, 10 MG PO DAILY, (Reported) Entered as Reported by: PEDRO PIERRE on 03/28/221433 Last Action: Held Discontinued Medications Amiodarone HCl (Amiodarone HCl) 200 Mg Tablet, 200 MG PO BID Discontinued Reason: No Longer Taking Prescribed by: SUMMER MARTIN on 04/01/22940 Last Action: Discontinued Apixaban (Eliquis) 5 Mg Tablet, 5 MG PO BID Discontinued Reason: No Longer Taking Prescribed by: SUMMER MARTIN on 04/01/22940 Last Action: Discontinued Ascorbate Calcium (Vitamin C) 500 Mg Tablet, 500 MG PO DAILY, (Reported) Discontinued Reason: No Longer Taking Entered as Reported by: PEDRO PIERRE on 9/6/22 1434 Last Action: Discontinued Diltiazem HCl (Diltiazem 24Hr ER) 180 Mg Cap.er.24h, 360 MG PO DAILY Discontinued Reason: No Longer Taking Prescribed by: SUMMER MARITN on 04/01/22940 Last Action: Discontinued Folic Acid/Multivit-Minerals (Women's Multivitamin Gummies) 200 Mcg Tab.chew, 2 EA PO DAILY, (Reported) Discontinued Reason: No Longer Taking Entered as Reported by: PEDRO PIERRE on 03/28/221433 Last Action: Discontinued Furosemide (Lasix) 40 Mg Tablet, 40 MG PO DAILY Discontinued Reason: No Longer Taking Prescribed by: SUMMER MARTIN on 04/01/22 1045 Last Action: Discontinued Hydrocodone/Acetaminophen (Hydrocodone-Acetamin 10-325 mg) 10 Mg-325 Mg Tablet, 1 EA PO Q6H PRN for PAIN-MODERATE (5-7), (Reported) Discontinued Reason: No Longer Taking Entered as Reported by: PEDRO PIERRE on 03/28/221434 Last Action: Discontinued Lacto No.76/Bifido/Fos/Larch (Women's 50 Billion Probiotc Cp) 25B-25B-50 Capsule, 1 EACH PO DAILY, (Reported) Discontinued Reason: No Longer Taking Entered as Reported by: PEDRO PIERRE on 03/28/221433 Last Action: Discontinued Metoprolol Succinate (Metoprolol Succinate) 25 Mg Tab.er.24h, 25 MG PO BID Discontinued Reason: No Longer Taking Prescribed by: SUMMER MARTIN on 04/01/22940 Last Action: Discontinued Review of Systems Review of Systems Constitutional: see HPI EENTM: no symptoms reported Respiratory: dyspnea on exertion, phlegm, short of breath Cardiovascular: no symptoms reported Gastrointestinal: no symptoms reported Genitourinary: no symptoms reported Musculoskeletal: other (swelling in legs) Skin: change in color ((pallor per friend at bedside)) Psychiatric/Neurological: Other (generalized weakness) All Other Systems Reviewed Negative Unless Noted: Yes Past Baslxjq-Bqdydc-Uocmkj Hx Patient Social History Tobacco Use?: No Use of E-Cig and/or Vaping dev: No Substance use?: No Alcohol Use?: No Pt feels they are or have been: No Immunizations Up To Date Tetanus Booster (TDap): More than 5yrs Seasonal Allergies Seasonal Allergies: No Past Medical History Surgery/Hospitalization HX: COPD, A-fib, CHF Surgeries: Yes (bilateral knee replacements, carpal tunnel) Hysterectomy, Orthopedic Respiratory: No Cardiac: Yes (CHF) Cardiomyopathy, Coronary Artery Disease, Hypertension 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 oz. kg; 42.00 BMI Method: General Appearance: WD/WN, no apparent distress Eyes: Bilateral Eye Normal Inspection, Bilateral Eye PERRL, Bilateral Eye EOMI HEENT: pale conjunctivae (R), pale conjunctivae (L), other (dry oral mucosa) Neck: full range of motion Respiratory: lungs clear, normal breath sounds, no respiratory distress, no accessory muscle use Cardiovascular: irregularly irregular, other (mild LE edema bilaterally) Gastrointestinal: normal bowel sounds, soft Extremities: non-tender Neurologic/Psychiatric: no motor/sensory deficits, alert, normal mood/affect, oriented x 3 Skin: warm/dry, pallor Progress/Results/Core Measures Suspected Sepsis SIRS Temperature: Pulse: 76 Respiratory Rate: 16 Blood Pressure 126 /66 Mean: 86 Results/Orders Lab Results Laboratory Tests Test 11/06/22 16:10 Range/Units White Blood Count 3.1 L 4.3-11.0 10^3/uL Red Blood Count 3.23 L 3.80-5.11 10^6/uL Hemoglobin 6.8 *L 11.5-16.0 g/dL Hematocrit 24 L 35-52 % Mean Corpuscular Volume 75 L 80-99 fL Mean Corpuscular Hemoglobin 21 L 25-34 pg Mean Corpuscular Hemoglobin Concent 28 L 32-36 g/dL Red Cell Distribution Width 18.6 H 10.0-14.5 % Platelet Count 224 130-400 10^3/uL Mean Platelet Volume 10.5 9.0-12.2 fL Immature Granulocyte % (Auto) 0 % Neutrophils (%) (Auto) 45 42-75 % Lymphocytes (%) (Auto) 36 12-44 % Monocytes (%) (Auto) 19 H 0-12 % Eosinophils (%) (Auto) 0 0-10 % Basophils (%) (Auto) 0 0-10 % Neutrophils # (Auto) 1.4 L 1.8-7.8 10^3/uL Lymphocytes # (Auto) 1.1 1.0-4.0 10^3/uL Monocytes # (Auto) 0.6 0.0-1.0 10^3/uL Eosinophils # (Auto) 0.0 0.0-0.3 10^3/uL Basophils # (Auto) 0.0 0.0-0.1 10^3/uL Immature Granulocyte # (Auto) 0.0 0.0-0.1 10^3/uL Neutrophils % (Manual) 48 % Lymphocytes % (Manual) 37 % Monocytes % (Manual) 13 % Basophils % (Manual) 2 % Polychromasia SLIGHT Hypochromasia MODERATE Basophilic Stippling SLIGHT Stomatocytes MODERATE My Orders Orders - GUSTAVO CRAWFORD MD Ed Iv/Invasive Line Start (11/06/22 16:48) Cbc With Automated Diff (11/06/22 16:48) Type And Screen (11/06/22 16:48) Manual Differential (11/06/22 16:10) Fecal Occult Bedside (11/06/22 17:01) Ct Abdomen/Pelvis W (11/06/22 17:02) Red Cells Leukocytes Reduced (11/06/22 17:02) Iohexol Injection (Omnipaque 350 Mg/Ml 1 (11/06/22 17:15) Ns (Ivpb) (Sodium Chloride 0.9% Ivpb Bag (11/06/22 17:15) Vital Signs/I&O 11/06/22 11/06/22 15:32 18:16 Pulse 76 64 Resp 16 17 B/P (MAP) 126/66 (86) 150/67 Pulse Ox 94 94 O2 Delivery Room Air Room Air Capillary Refill : Less Than 3 Seconds Blood Pressure Mean: 86 Progress Note : Progress Note Patient seen and evaluated by me, evaluation today includes physical exam, CBC, basic metabolic panel, fecal occult blood test. Pertinent physical exam findings reveal well-developed well-nourished obese female in no acute distress. Her vital signs show rate controlled A-fib in the 60s to 70s with an adequate blood pressure. She is alert and oriented. She is quite pale. Lungs are clear. Heart irregular. Abdomen benign. Digital rectal exam is negative for blood, masses. Lower extremities demonstrate mild edema bilaterally. Nonpitting. Differential diagnosis based on history and physical exam, GI bleed upper versus lower, anemia of chronic disease/bone marrow issue. Labs reviewed by me, CBC shows a total white blood cell count of 3.1, hemoglobin of 6.8, hematocrit of 24. Platelets are 224. Chemistry is generally unremarkable except for BUN of 24 and creatinine of 1.17. Fecal occult blood testing negative. Patient is resting comfortably throughout her stay in the emergency department. Case is discussed with the hospitalist on-call. Patient will be admitted to the hospital for transfusion and monitoring. She is comfortable with the plan of care. At this time there is no indication that the patient is having either an acute upper or lower GI bleed. Consideration for consultation with general surgery however history and physical do not support the need. Departure Communication (Admissions) Time/Spoke to Admitting Phy: 16:[address] Martin - acceptdavie for admission Impression Primary Impression: Anemia Qualified Codes: D64.9 - Anemia, unspecified Additional Impressions: Chronic anticoagulation Afib Qualified Codes: I48.20 - Chronic atrial fibrillation, unspecified Disposition: ADMITTED INPATIENT Condition: Stable Admissions Decision to Admit Reason: Admit from ER (General) Decision to Admit/Date: Nov 06, 2022 Time/Decision to Admit Time: 16:57 Departure-Patient Inst. Referrals: DEMETRIA VANN MD (PCP) Primary Care Physician Copy Copies To 1: DEMETRIA VANN MD, KATHRYN M MD Nov 06, 2022 16:54
[2022-11-06] MEDS ORDERED: IOHEXOL 350 MG/ML 100 ML (OMNIPAQUE 350) VIAL IV ONE (17:15)
[2022-11-06] MEDS ORDERED: NS 100 ML (IVPB) BAG IV ONE (17:15)
--- NOTE | 2022-11-06 17:42 | Diagnostic Imaging Report ---
PROCEDURE: CT abdomen and pelvis with contrast. TECHNIQUE: Multiple contiguous axial images were obtained through the abdomen and pelvis after administration of intravenous contrast. Auto Exposure Controls were utilized during the CT exam to meet ALARA standards for radiation dose reduction. All CT scans use one or more of the following dose optimizing techniques: automated exposure control, MA and/or KvP adjustment based on patient size and exam type or iterative reconstruction. INDICATION: Back pain, anemia COMPARISON: None FINDINGS: There are mild nonspecific groundglass opacities in the lung bases. The heart is normal in size. There is no pericardial effusion. There is a large hiatal hernia containing at least half of the stomach. The liver demonstrates no focal lesions. Cholecystectomy clips are noted. The spleen is normal. The pancreas appears normal. The adrenal glands are normal. The kidneys demonstrate no enhancing lesions and no hydronephrosis. The bowel loops are nondistended without obstruction. The appendix is not definitively seen. No secondary findings of appendicitis are identified. There is no free fluid or free air. There is a small fat-containing periumbilical hernia with no bowel involvement. No acute osseous abnormality is seen. There are degenerative changes throughout the spine. IMPRESSION: 1. No acute abnormality is seen in the abdomen and pelvis. 2. Large hiatal hernia. 3. Nonspecific groundglass opacities in the lung bases, may be due to mild edema, infection, or atelectasis. Dictated by: Dictated on workstation # [id number]
[2022-11-06 17:46] LABS: BASOPHILS % (MANUAL) 2 %; LYMPHOCYTES % (MANUAL) 37 %; MONOCYTES % (MANUAL) 13 %; NEUTROPHILS % (MANUAL) 48 %; POLYCHROMASIA SLIGHT
[2022-11-06 17:47] LABS: HYPOCHROMASIA MODERATE; STOMATOCYTES MODERATE
[2022-11-06 19:10] VITALS: BP 199/83
[2022-11-06] MEDS ORDERED: CALCIUM CARBONATE 500 MG (TUMS) TAB.CHEW PO PRN (19:45)
[2022-11-06] MEDS ORDERED: ONDANSETRON 4 MG (ZOFRAN) ORAL DISSOLVE TAB PO PRN (19:45)
[2022-11-06] MEDS ORDERED: ONDANSETRON 4 MG/2 ML (SDV) Z0FRAN IV PRN (19:45)
[2022-11-06] MEDS ORDERED: PANTOPRAZOLE 40 MG (PROTONIX) VIAL IV NR ×2 (19:45→22:30)
[2022-11-06] MEDS ORDERED: polyethylene glycoL POWDER 17 GM (MIRALAX) PACK PO PRN (19:45)
[2022-11-06 20:20] VITALS: BP 154/74
[2022-11-06] MEDS ORDERED: NS IV 1000 ML 1,000 ML IV ONE (20:20)
[2022-11-06] MEDS ORDERED: NS IV 1000 ML 1,000 ML ONE (20:20)
[2022-11-06 20:44] VITALS: BP 152/76
[2022-11-06 22:44] VITALS: BP 149/72
[2022-11-06 23:13] VITALS: BP 147/65
[2022-11-07] VITALS (10 sets, daily range): BP systolic 151–181; BP diastolic 68–81
[2022-11-07] MEDS: MELATONIN 3 MG TABLET PO PRN ×2 (00:08→20:07)
[2022-11-07 05:51] LABS: HEMATOCRIT 24 % (35-52); MEAN CORPUSCULAR HEMOGLOBIN 22 pg (25-34); MEAN CORPUSCULAR HGB CONC 29 g/dL (32-36); MEAN CORPUSCULAR VOLUME 75 fL (80-99); MEAN PLATELET VOLUME 10.4 fL (9.0-12.2); PLATELET COUNT 183 10^3/uL (130-400); WHITE BLOOD COUNT 3.6 10^3/uL (4.3-11.0)
[2022-11-07 06:00] LABS: HEMOGLOBIN 6.9 g/dL (11.5-16.0)
--- NOTE | 2022-11-07 06:34 | Consultation - Surgery ---
DENISE URBAN 11/07/22 0634: History of Present Illness History of Present Illness Patient Consulted On(ani/time) 11/07/22 06:28 Date Seen by Provider: Nov 07, 2022 Time Seen by Provider: 06:25 History of Present Illness 77yo female came to the ER on 11/06 with CC of worsening SOB. The SOB has been worsening over the past month and is now to the point that even standing up and taking a couple of steps requires her to sit back down to catch her breath. She has fatigue all the time as well as self-reported increased swelling in her legs. She denies any pain during the past month. She went to her PCP where they ofelia some labs and she was found to have a low hgb which also prompted the pt. to come to the hospital. On admission her hgb was 6.8. She has not had any N/V, abdominal pain, hematochezia, or melena. She did state that she has, "always been anemic" and she has had a GI bleed years ago following a knee replacement. She has had colonoscopies in the past, she did not remember exactly when her last one was, but she believed it was within the past 10 years at [facility]. Allergies and Home Medications Allergies Coded Allergies: Penicillins (Verified Allergy, Unknown, 06/10/19) adhesive tape (Verified Allergy, Unknown, 06/10/19) amoxicillin (Verified Allergy, Unknown, 06/10/19) celecoxib (Verified Allergy, Unknown, 06/10/19) dapsone (Verified Allergy, Unknown, 06/10/19) succinylcholine (Verified Allergy, Unknown, 06/10/19) Patient Home Medication List Allopurinol (Allopurinol) 100 Mg Tablet, 100 MG PO DAILY, (Reported) Entered as Reported by: PEDRO PIERRE on 03/28/22 5554 Last Action: Continued Alprazolam (Xanax) 0.25 Mg Tablet, 0.25 MG PO BID PRN for ANXIETY, (Reported) Entered as Reported by: PEDRO PIERRE on 11/07/22 1154 Last Action: Continued Amiodarone HCl (Amiodarone HCl) 200 Mg Tablet, 200 MG PO DAILY, (Reported) Entered as Reported by: PEDRO PIERRE on 11/07/22 1154 Last Action: Continued Apixaban (Eliquis) 5 Mg Tablet, 5 MG PO BID, (Reported) Entered as Reported by: PEDRO PIERRE on 11/07/221153 Last Action: Held Cyanocobalamin (Vitamin B-12) (Vitamin B-12) 500 Mcg Tablet, 500 MCG PO DAILY, (Reported) Entered as Reported by: PEDRO PIERRE on 11/07/221153 Last Action: Held Diltiazem HCl (Diltiazem ER) 180 Mg Capsule.er, 180 MG PO DAILY, (Reported) Entered as Reported by: PEDRO PIERRE on 11/07/221153 Last Action: Held Duloxetine HCl (Duloxetine HCl) 60 Mg Capsule.dr, 60 MG PO DAILY, (Reported) Entered as Reported by: PEDRO PIERRE on 03/28/221433 Last Action: Held Furosemide (Furosemide) 40 Mg Tablet, 20-40 MG PO DAILY, (Reported) Entered as Reported by: PEDRO PIERRE on 11/07/221153 Last Action: Held Melatonin (Melatonin) 3 Mg Tablet, 6 MG PO HS PRN for SLEEP, (Reported) Entered as Reported by: PEDRO PIERRE on 11/07/221153 Last Action: Reviewed Metoprolol Succinate (Metoprolol Succinate) 50 Mg Tab.er.24h, 25 MG PO BID, (Reported) Entered as Reported by: PEDRO PIERRE on 11/07/221153 Last Action: Continued Ramipril (Ramipril) 10 Mg Capsule, 10 MG PO DAILY, (Reported) Entered as Reported by: PEDRO PIERRE on 03/28/221433 Last Action: Held Discontinued Medications Amiodarone HCl (Amiodarone HCl) 200 Mg Tablet, 200 MG PO BID Discontinued Reason: No Longer Taking Prescribed by: SUMMER MARTIN on 04/01/22940 Last Action: Discontinued Apixaban (Eliquis) 5 Mg Tablet, 5 MG PO BID Discontinued Reason: No Longer Taking Prescribed by: SUMMER MARTIN on 04/01/22940 Last Action: Discontinued Ascorbate Calcium (Vitamin C) 500 Mg Tablet, 500 MG PO DAILY, (Reported) Discontinued Reason: No Longer Taking Entered as Reported by: PEDRO PIERRE on 03/28/221433 Last Action: Discontinued Diltiazem HCl (Diltiazem 24Hr ER) 180 Mg Cap.er.24h, 360 MG PO DAILY Discontinued Reason: No Longer Taking Prescribed by: SUMMER MARTIN on 04/01/22940 Last Action: Discontinued Folic Acid/Multivit-Minerals (Women's Multivitamin Gummies) 200 Mcg Tab.chew, 2 EA PO DAILY, (Reported) Discontinued Reason: No Longer Taking Entered as Reported by: PEDRO PIERRE on 03/28/22 143 Last Action: Discontinued Furosemide (Lasix) 40 Mg Tablet, 40 MG PO DAILY Discontinued Reason: No Longer Taking Prescribed by: SUMMER MARTIN on 04/01/22 1045 Last Action: Discontinued Hydrocodone/Acetaminophen (Hydrocodone-Acetamin 10-325 mg) 10 Mg-325 Mg Tablet, 1 EA PO Q6H PRN for PAIN-MODERATE (5-7), (Reported) Discontinued Reason: No Longer Taking Entered as Reported by: PERDO PIERRE on 03/28/221434 Last Action: Discontinued Lacto No.76/Bifido/Fos/Larch (Women's 50 Billion Probiotc Cp) 25B-25B-50 Capsule, 1 EACH PO DAILY, (Reported) Discontinued Reason: No Longer Taking Entered as Reported by: PEDRO PIERRE on 03/28/221433 Last Action: Discontinued Metoprolol Succinate (Metoprolol Succinate) 25 Mg Tab.er.24h, 25 MG PO BID Discontinued Reason: No Longer Taking Prescribed by: SUMMER MARTNI on 04/01/22940 Last Action: Discontinued Past Bsbwdva-Wzlhdd-Hwawxm Hx Patient Social History Smoking Status: Never a Smoker 2nd Hand Smoke Exposure: No Recent Hopitalizations: No Alcohol Use?: No Have you traveled recently?: No Immunizations Up To Date Tetanus Booster (TDap): More than 5yrs Seasonal Allergies Seasonal Allergies: No Surgeries History of Surgeries: Yes (bilateral knee replacements, carpal tunnel) Surgeries: Abdominal (appendectom), Gallbladder, Hysterectomy, Orthopedic Respiratory History of Respiratory Disorde: Yes Respiratory Disorders: COPD Cardiovascular History of Cardiac Disorders: Yes (CHF) Cardiac Disorders: Cardiomyopathy, Coronary Artery Disease, Hypertension Neurological History of Neurological Disord: No 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 Genitourinary History of Genitourinary Disor: No Gastrointestinal History of Gastrointestinal Di: Yes Gastrointestinal Disorders: Gastroesophageal Reflux, Hiatal Hernia Musculoskeletal History of Musculoskeletal Dis: Yes Musculoskeletal Disorders: Arthritis Endocrine History of Endocrine Disorders: No HEENT History of HEENT Disorders: No Cancer History of Cancer: No Psychosocial History of Psychiatric Problem: No Integumentary History of Skin or Integumenta: No Family Medical History Significant Family History: Heart Disease (mom of [place]), Cancer (dad, doesn't remember what kind), Hypertension Review of Systems-General Constitutional: No chills, No diaphoresis, No fever; malaise, weakness; No weight gain, No weight loss EENTM: hoarseness; No blurred vision, No double vision Respiratory: No cough; dyspnea on exertion; No short of breath Cardiovascular: No chest pain; Hx of Intervention; No palpitations Gastrointestinal: No abdominal pain, No constipation, No diarrhea, No dysphagia, No melena, No nausea, No vomiting Genitourinary: No dysuria, No frequency, No hematuria, No pain Musculoskeletal: back pain, muscle stiffness, muscle cramps Skin: No dryness, No hx of skin cancer, No pruritus, No rash Psychiatric/Neurological: Anxiety, Depressed, Headache; Denies Numbness, Denies Tingling Physical Exam-General Problems Physical Exam Vital Signs Vital Signs - First Documented 11/06/22 11/06/22 11/07/22 15:32 19:10 03:38 Temp 36.5 Pulse 76 Resp 16 B/P (MAP) 126/66 (86) Pulse Ox 94 O2 Delivery Room Air O2 Flow Rate 2.00 2.00 Capillary Refill : Less Than 3 Seconds General Appearance: no apparent distress, obese HEENT: PERRL/EOMI, pharynx normal Neck: non-tender, supple Respiratory: no respiratory distress, no accessory muscle use Cardiovascular: irregularly irregular, other (regular rate) Gastrointestinal: normal bowel sounds, soft, tenderness (mild tenderness in epigastrium) Back: no CVA tenderness, no vertebral tenderness Extremities: no pedal edema, no calf tenderness Neurologic/Psychiatric: alert, oriented x 3 Skin: normal color, warm/dry Lymphatic: no adenopathy Data Review Labs Laboratory Tests 11/06/22 16:10: White Blood Count 3.1L, Red Blood Count 3.23L, Hemoglobin 6.8*L, Hematocrit 24L, Mean Corpuscular Volume 75L, Mean Corpuscular Hemoglobin 21L, Mean Corpuscular Hemoglobin Concent 28L, Red Cell Distribution Width 18.6H, Platelet Count 224, Mean Platelet Volume 10.5, Immature Granulocyte % (Auto) 0, Neutrophils (%) (Auto) 45, Lymphocytes (%) (Auto) 36, Monocytes (%) (Auto) 19H, Eosinophils (%) (Auto) 0, Basophils (%) (Auto) 0, Neutrophils # (Auto) 1.4L, Lymphocytes # (Auto) 1.1, Monocytes # (Auto) 0.6, Eosinophils # (Auto) 0.0, Basophils # (Auto) 0.0, Immature Granulocyte # (Auto) 0.0, Neutrophils % (Manual) 48, Lymphocytes % (Manual) 37, Monocytes % (Manual) 13, Basophils % (Manual) 2, Polychromasia SLIGHT, Hypochromasia MODERATE, Basophilic Stippling SLIGHT, Stomatocytes M ODERATE 11/07/22 05:10: White Blood Count 3.6L, Red Blood Count 3.15L, Hemoglobin 6.9*L, Hematocrit 24L, Mean Corpuscular Volume 75L, Mean Corpuscular Hemoglobin 22L, Mean Corpuscular Hemoglobin Concent 29L, Red Cell Distribution Width 18.6H, Platelet Count 183, Mean Platelet Volume 10.4 Assessment/Plan Assessment/Plan Assessment/Plan Anemia SOB Leukopenia 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 was transfused 1 unit, hgb did not improve Will give another unit Keep NPO If hgb does not improve, consider colonoscopy IV fluids Supplemental O2 Consult cardiology for management of AFib Hold anticoagulant GI prophylaxis w/protonix MOISE DAVID DO 11/07/224: History of Present Illness History of Present Illness History of Present Illness Consult requested for anemia. Patient is a 77 year old female who has been having issues with fatigue and shortness of breath for about a month. Activity makes worse. Nothing makes better. Has not noticed any bleeding with stools or dark stools. Has been noted to have hgb low she states from PCP. Patietn has no abdominal pain. Has had endoscopies before but quite some time. Hgb 6.8 at admission. She is on anticoagulation last taking yesterday (Abixiban). Not having any gerd, abodminal pain, nausea or vomiting. Allergies and Home Medications Allergies Coded Allergies: Penicillins (Verified Allergy, Unknown, 06/10/19) adhesive tape (Verified Allergy, Unknown, 06/10/19) amoxicillin (Verified Allergy, Unknown, 06/10/19) celecoxib (Verified Allergy, Unknown, 06/10/19) dapsone (Verified Allergy, Unknown, 06/10/19) succinylcholine (Verified Allergy, Unknown, 06/10/19) Patient Home Medication List Home Medication List Reviewed: Yes Allopurinol (Allopurinol) 100 Mg Tablet, 100 MG PO DAILY, (Reported) Entered as Reported by: PEDRO PIERRE on 03/28/221433 Last Action: Continued Alprazolam (Xanax) 0.25 Mg Tablet, 0.25 MG PO BID PRN for ANXIETY, (Reported) Entered as Reported by: PEDRO PIERRE on 11/07/221153 Last Action: Continued Amiodarone HCl (Amiodarone HCl) 200 Mg Tablet, 200 MG PO DAILY, (Reported) Entered as Reported by: PEDRO PIERRE on 11/07/221153 Last Action: Continued Apixaban (Eliquis) 5 Mg Tablet, 5 MG PO BID, (Reported) Entered as Reported by: PEDRO PIERRE on 11/07/221153 Last Action: Held Cyanocobalamin (Vitamin B-12) (Vitamin B-12) 500 Mcg Tablet, 500 MCG PO DAILY, (Reported) Entered as Reported by: PEDRO PIERRE on 11/07/221153 Last Action: Held Diltiazem HCl (Diltiazem ER) 180 Mg Capsule.er, 180 MG PO DAILY, (Reported) Entered as Reported by: PEDRO PIERRE on 11/07/221153 Last Action: Held Duloxetine HCl (Duloxetine HCl) 60 Mg Capsule.dr, 60 MG PO DAILY, (Reported) Entered as Reported by: PEDRO PIERRE on 03/28/221433 Last Action: Held Furosemide (Furosemide) 40 Mg Tablet, 20-40 MG PO DAILY, (Reported) Entered as Reported by: PEDRO PIERRE on 11/07/221153 Last Action: Held Melatonin (Melatonin) 3 Mg Tablet, 6 MG PO HS PRN for SLEEP, (Reported) Entered as Reported by: PEDRO PIERRE on 11/07/221153 Last Action: Reviewed Metoprolol Succinate (Metoprolol Succinate) 50 Mg Tab.er.24h, 25 MG PO BID, (Reported) Entered as Reported by: PEDRO PIERRE on 11/07/22 1154 Last Action: Continued Ramipril (Ramipril) 10 Mg Capsule, 10 MG PO DAILY, (Reported) Entered as Reported by: PEDRO PIERRE on 03/28/221433 Last Action: Held Discontinued Medications Amiodarone HCl (Amiodarone HCl) 200 Mg Tablet, 200 MG PO BID Discontinued Reason: No Longer Taking Prescribed by: SUMMER MARTIN on 04/01/22940 Last Action: Discontinued Apixaban (Eliquis) 5 Mg Tablet, 5 MG PO BID Discontinued Reason: No Longer Taking Prescribed by: SUMMER MARTIN on 04/01/22940 Last Action: Discontinued Ascorbate Calcium (Vitamin C) 500 Mg Tablet, 500 MG PO DAILY, (Reported) Discontinued Reason: No Longer Taking Entered as Reported by: PEDRO PIERRE on 03/28/221433 Last Action: Discontinued Diltiazem HCl (Diltiazem 24Hr ER) 180 Mg Cap.er.24h, 360 MG PO DAILY Discontinued Reason: No Longer Taking Prescribed by: SUMMER MARTIN on 04/01/22940 Last Action: Discontinued Folic Acid/Multivit-Minerals (Women's Multivitamin Gummies) 200 Mcg Tab.chew, 2 EA PO DAILY, (Reported) Discontinued Reason: No Longer Taking Entered as Reported by: PEDRO PIERRE on 03/28/221433 Last Action: Discontinued Furosemide (Lasix) 40 Mg Tablet, 40 MG PO DAILY Discontinued Reason: No Longer Taking Prescribed by: SUMMER MARTIN on 04/01/22 1045 Last Action: Discontinued Hydrocodone/Acetaminophen (Hydrocodone-Acetamin 10-325 mg) 10 Mg-325 Mg Tablet, 1 EA PO Q6H PRN for PAIN-MODERATE (5-7), (Reported) Discontinued Reason: No Longer Taking Entered as Reported by: PEDRO PIERRE on 03/28/221434 Last Action: Discontinued Lacto No.76/Bifido/Fos/Larch (Women's 50 Billion Probiotc Cp) 25B-25B-50 Capsule, 1 EACH PO DAILY, (Reported) Discontinued Reason: No Longer Taking Entered as Reported by: PEDRO PIERRE on 03/28/22 1434 Last Action: Discontinued Metoprolol Succinate (Metoprolol Succinate) 25 Mg Tab.er.24h, 25 MG PO BID Discontinued Reason: No Longer Taking Prescribed by: SUMMER MARTIN on 04/01/22 0941 Last Action: Discontinued Past Lyqlnaf-Hngsyk-Dadgrk Hx Reviewed Nursing Assessment Reviewed/Agree w Nursing PMH: Yes Review of Systems-General Constitutional: No chills, No diaphoresis; malaise, weakness EENTM: hoarseness; No blurred vision, No double vision Respiratory: No cough; dyspnea on exertion, short of breath Cardiovascular: No chest pain; Hx of Intervention; No palpitations Gastrointestinal: No abdominal pain, No melena, No nausea, No vomiting Genitourinary: No dysuria, No pain Musculoskeletal: back pain, muscle stiffness, muscle cramps Skin: No change in color, No change in hair/nails Psychiatric/Neurological: Anxiety, Depressed All Other Systems Reviewed Negative Unless Noted: Yes (Negative excepted noted.) Physical Exam-General Problems Physical Exam General Appearance: no apparent distress, obese HEENT: PERRL/EOMI, normal ENT inspection Neck: non-tender, supple Respiratory: chest non-tender, no respiratory distress, no accessory muscle use Cardiovascular: no JVD, irregularly irregular Gastrointestinal: soft, tenderness (mild tenderness in epigastrium) Rectal: deferred Back: no CVA tenderness, no vertebral tenderness Extremities: no pedal edema, no calf tenderness Neurologic/Psychiatric: alert, oriented x 3 Skin: normal color, warm/dry Lymphatic: no adenopathy Assessment/Plan Assessment/Plan Assessment/Plan Anemia 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 was transfused 1 unit, hgb did not improve, follow labs transfuse as needed. Clears If hgb does not improve-endoscopy (anticoagulation on hold) egd/colonoscopy inpatient vs outpatient IV fluids Supplemental O2 Hold anticoagulant Protonix Supervisory-Addendum Brief Verification & Attestation Participated in pt care: history, MDM, physical Personally performed: exam, history, MDM, supervision of care Care discussed with: Medical Student Procedures: n/a Results interpretation: Verified all documentation Verification and Attestation of Medical Student E/M Service A medical student performed and documented this service in my presence. I reviewed and verified all information documented by the medical student and made modifications to such information, when appropriate. I personally performed the physical exam and medical decision making. Moise David, Nov 07, 2022,22:46 DENISE URBAN Nov 07, 2022 06:34 MOISE DAVID DO Nov 07, 2022 22:42
[2022-11-07 06:48] LABS: INR 1.2 (0.8-1.4); PROTHROMBIN TIME PATIENT 15.9 SEC (12.2-14.7)
[2022-11-07 06:57] LABS: CALCIUM 9.1 MG/DL (8.5-10.1); CREATININE SERUM 1.17 MG/DL (0.60-1.30)
[2022-11-07] MEDS ORDERED: NS IV 500 ML 500 ML IV SCH (07:15)
[2022-11-07] MEDS ORDERED: NS IV 1000 ML 1,000 ML IV SCH (07:30)
[2022-11-07] MEDS: PANTOPRAZOLE 40 MG (PROTONIX) VIAL IV SCH (08:21)
[2022-11-07] MEDS ORDERED: NS IV 500 ML 500 ML ONE (11:08)
--- NOTE | 2022-11-07 11:34 | History & Physical-Hospitalist ---
History of Present Illness HPI/Chief Complaint Patient is a 77-year-old female with past medical history of atrial fibrillation on chronic anticoagulation, GI bleed, CHF, hypertension who presented to the emergency department due to low hemoglobin. She reports that she has been feeling poorly and short of breath. She states with any type of exertion she becomes quite short of breath and is fatigued. She was going to see her primary care physician last week but was unable to get in before the weekend so tried to tough it out. She had labs drawn yesterday by her PCP as an outpatient was found to have a hemoglobin of 6.6 and was referred to the [facility]. Repeat lab work confirmed the anemia with a hemoglobin of 6.8. She denies any dark stools though states she has had a GI bleed in the past after her knee surgery where she required 5 to 6 units of blood. She has been compliant with her anticoagulation for her atrial fibrillation. She was given 1 unit packed red blood cells and admitted to the hospital. Her hemoglobin remains low at 6.9. Surgery has been consulted to assist with further work-up. Source: patient Date Seen 11/07/22 Time Seen by a Provider: 10:45 Attending Physician Teresita Enriquez MD PCP Admitting Physician: Summer Callejas MD Attending Physician: Summer Callejas MD Referring Physician Date of Admission Nov 06, 2022 at 18:55 Home Medications & Allergies Home Medications Reviewed patient Home Medication Reconciliation performed by pharmacy medication reconciliations plasma processing technician and/or nursing. Patients Allergies have been reviewed. Allergies Allergies Coded Allergies Penicillins (Verified Allergy, Unknown, 06/10/19) adhesive tape (Verified Allergy, Unknown, 06/10/19) amoxicillin (Verified Allergy, Unknown, 06/10/19) celecoxib (Verified Allergy, Unknown, 06/10/19) dapsone (Verified Allergy, Unknown, 06/10/19) succinylcholine (Verified Allergy, Unknown, 06/10/19) Past Yjirvlz-Lpydmv-Pvrgjz Hx Patient Social History Tobacco Use?: No Smoking Status: Never a Smoker Smokeless Tobacco Frequency: Never a User Use of E-Cig and/or Vaping dev: No Use of E-Cig and/or Vaping Siva: Never a User Substance use?: No Alcohol Use?: No Pt feels they are or have been: No Immunizations Up To Date Tetanus Booster (TDap): Unknown Seasonal Allergies Seasonal Allergies: No Current Status status: No status: No Advance Directives: Yes Advance Directive Location: Home Communicates: Verbally Primary Language: Stateless Preferred Spoken Language: Stateless Is interpretation needed?: No Sensory deficits: Vision impairment Implanted or Applied Medical D: None Past Medical History Surgeries: Abdominal (appendectom), Gallbladder, Hysterectomy, Orthopedic COPD Cardiomyopathy, Coronary Artery Disease, Hypertension 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 oz. kg; 41.66 BMI Method: General Appearance: No Apparent Distress, Chronically ill, Obese Respiratory: Lungs Clear, No Respiratory Distress Cardiovascular: Regular Rate, Rhythm, No Murmur Gastrointestinal: Normal Bowel Sounds, Non Tender, Soft Neurologic/Psychiatric: Alert, Oriented x3, Normal Mood/Affect Skin: Pallor Results Results/Procedures Labs Laboratory Tests 11/06/22 16:10 11/07/22 05:10 Patient resulted labs reviewed. Imaging [facility] [place], [place] NAME: NOEMÍ MASTERSON [facility] REC#: [id number] PT STATUS: ADM IN : 1945 PHYSICIAN: GUSTAVO CRAWFORD MD ADMIT DATE: 11/06/22 Signed Date of Exam:11/06/22 CT ABDOMEN/PELVIS W PROCEDURE: CT abdomen and pelvis with contrast. TECHNIQUE: Multiple contiguous axial images were obtained through the abdomen and pelvis after administration of intravenous contrast. Auto Exposure Controls were utilized during the CT exam to meet ALARA standards for radiation dose reduction. All CT scans use one or more of the following dose optimizing techniques: automated exposure control, MA and/or KvP adjustment based on patient size and exam type or iterative reconstruction. INDICATION: Back pain, anemia COMPARISON: None FINDINGS: There are mild nonspecific groundglass opacities in the lung bases. The heart is normal in size. There is no pericardial effusion. There is a large hiatal hernia containing at least half of the stomach. The liver demonstrates no focal lesions. Cholecystectomy clips are noted. The spleen is normal. The pancreas appears normal. The adrenal glands are normal. The kidneys demonstrate no enhancing lesions and no hydronephrosis. The bowel loops are nondistended without obstruction. The appendix is not definitively seen. No secondary findings of appendicitis are identified. There is no free fluid or free air. There is a small fat-containing periumbilical hernia with no bowel involvement. No acute osseous abnormality is seen. There are degenerative changes throughout the spine. IMPRESSION: 1. No acute abnormality is seen in the abdomen and pelvis. 2. Large hiatal hernia. 3. Nonspecific groundglass opacities in the lung bases, may be due to mild edema, infection, or atelectasis. Dictated by: Dictated on workstation # [id number] Dict: 11/06/22 1735 Trans: 11/06/221953 [facility] [id number] Interpreted by: CLARENCE CORTES MD Electronically signed by: CLARENCE CORTES MD 11/06/221953 Assessment/Plan Admission Diagnosis Anemia Admission Status: Inpatient Order (span 2 midnights) Reason for Inpatient Admission: see below Assessment and Plan Anemia fecal occult negative Hgb 6.8 to 6.9 with one unit Repeat another unit pRBCs today Will get iron studies, B12, Folic acid level bili from 11/06 0.5 Stomatocytes seen on CBC- denies alcohol use Consider heme consult CAD pA fib CHF HTN Hold eliquis EF 45% from 10.22 with grade 2 diastolic dysfunction No evidence of failure Continue home meds as appropriate DVT ppx: SCDs only Diagnosis/Problems Diagnosis/Problems (1) Anemia Status: Acute Qualifiers: Anemia type: unspecified type Qualified Codes: D64.9 - Anemia, unspecified (2) Afib Status: Acute Qualifiers: Atrial fibrillation type: unspecified chronic Qualified Codes: I48.20 - Chronic atrial fibrillation, unspecified (3) Chronic anticoagulation Status: Acute SUMMER CALLEJAS MD Nov 07, 2022 11:34 am
[2022-11-07] MEDS ORDERED: DILT180C82 PO (11:54)
[2022-11-07] MEDS ORDERED: APIX5TAB PO (11:54)
[2022-11-07] MEDS ORDERED: ALPR0.25 PO (11:54)
[2022-11-07] MEDS ORDERED: CYAN500T8 PO (11:54)
[2022-11-07] MEDS ORDERED: MELA3TAB39 PO (11:54)
[2022-11-07] MEDS ORDERED: FURO40TA4 PO (11:54)
[2022-11-07] MEDS ORDERED: METO50TA7 PO (11:54)
[2022-11-07] MEDS ORDERED: AMIO200T65 PO (11:54)
[2022-11-07] MEDS ORDERED: ALPRAZolam 0.25 MG (XANAX) TAB PO PRN (14:45)
[2022-11-07 15:12] LABS: PHOSPHORUS 3.6 MG/DL (2.3-4.7)
[2022-11-07] MEDS: ACETAMINOPHEN 325 MG TABLET PO PRN ×2 (15:12→22:41)
[2022-11-08 03:53] VITALS: BP 160/80
[2022-11-08 05:46] LABS: HEMATOCRIT 26 % (35-52); HEMOGLOBIN 7.6 g/dL (11.5-16.0); MEAN CORPUSCULAR HEMOGLOBIN 22 pg (25-34); MEAN CORPUSCULAR HGB CONC 29 g/dL (32-36); MEAN CORPUSCULAR VOLUME 76 fL (80-99); MEAN PLATELET VOLUME 10.6 fL (9.0-12.2); PLATELET COUNT 157 10^3/uL (130-400); WHITE BLOOD COUNT 4.2 10^3/uL (4.3-11.0)
[2022-11-08 06:05] LABS: CALCIUM 9.4 MG/DL (8.5-10.1); CREATININE SERUM 0.95 MG/DL (0.60-1.30)
--- NOTE | 2022-11-08 07:11 | Progress Note - Surgery ---
DENISE URBAN 11/08/22 0711: Subjective Date Seen by a Provider: Nov 08, 2022 Time Seen by a Provider: 07:05 Subjective/Events-last exam Patient says she is feeling better today. She had an episode of lightheadedness last night when she stood up but has not had that since. Her SOB has improved. She denies any pain, she is voiding and having BMs normally. She is on a clear liquid diet and tolerating it well. Review of Systems General: Fatigue, Malaise Pulmonary: Dyspnea; No Cough Cardiovascular: Palpitations; No: Chest Pain Gastrointestinal: No: Nausea, Vomiting, Abdominal Pain Genitourinary: No Dysuria, No Frequency Musculoskeletal: No: neck pain, back pain Neurological: No: Numbness, Confusion Objective Exam Vital Signs Date Time Temp Pulse Resp B/P (MAP) Pulse Ox O2 Delivery O2 Flow Rate FiO2 11/08/22 03:53 36.6 66 18 160/80 (106) 95 Nasal Cannula 2.00 11/08/22 01:20 76 11/07/22 23:47 37.0 80 20 178/78 (111) 97 Nasal Cannula 2.00 11/07/22 20:14 36.6 73 18 178/81 (113) 98 Room Air 11/07/22 20:05 Room Air 11/07/22 19:25 74 11/07/22 16:50 72 11/07/22 15:55 36.8 73 20 176/74 (108) 91 Room Air 11/07/22 14:58 37.4 72 16 176/77 93 Room Air 11/07/22 14:56 37.4 72 16 176/77 (110) 93 11/07/22 11:55 37.0 74 14 156/69 (98) 94 Room Air 11/07/22 11:55 37.0 74 14 156/69 94 Room Air 11/07/22 11:38 37.5 72 16 151/68 96 Room Air 11/07/22 08:30 Room Air 11/07/22 08:30 Room Air 11/07/22 07:24 66 11/07/22 07:14 36.7 67 18 172/74 (106) 96 Room Air I & O 11/08/22 07:00 Intake Total 1140 ml Balance 1140 ml Capillary Refill : Less Than 3 Seconds General Appearance: No Apparent Distress, Chronically ill, Obese HEENT: PERRL/EOMI, Moist Mucous Membranes Neck: Non Tender, Supple Respiratory: No Accessory Muscle Use, No Respiratory Distress Cardiovascular: No Murmur, Bradycardia Gastrointestinal: soft, tenderness (mild tenderness in epigastrium) Extremity: Non Tender, No Calf Tenderness Neurologic/Psychiatric: Alert, Oriented x3 Skin: Normal Color, Warm/Dry, Pallor Lymphatic: No Adenopathy Results Lab Laboratory Tests 11/07/22 13:02: Lab Scanned Report Transfusion Reaction Form 11/08/22 05:05: White Blood Count 4.2L, Red Blood Count 3.42L, Hemoglobin 7.6L, Hematocrit 26L, Mean Corpuscular Volume 76L, Mean Corpuscular Hemoglobin 22L, Mean Corpuscular Hemoglobin Concent 29L, Red Cell Distribution Width 18.7H, Platelet Count 157, Mean Platelet Volume 10.6, Sodium Level 138, Potassium Level 4.0, Chloride Level 103, Carbon Dioxide Level 24, Anion Gap 11, Blood Urea Nitrogen 16, Creatinine 0.95, Estimat Glomerular Filtration Rate 62, BUN/Creatinine Ratio 17, Glucose Level 124H, Calcium Level 9.4 Assessment/Plan Assessment/Plan Assessment/Plan Anemia Shortness of breath halfway use of Anticoagulant Hx of AFib Pt. was transfused 1 unit, hgb did not improve, follow labs transfuse as needed. Clears Hgb improved today from 6.9 to 7.6, will recheck hgb later today Plan to scope tomorrow IV fluids Supplemental O2 Hold anticoagulant Protonix Cardiology consulted and has seen patient for Afib BENIGNO TREVIÑO DO 11/08/22 1340: Subjective Subjective/Events-last exam Feeling okay today. TOlerating clears. Anticoagulation has been held. Wanting to get scopes before leaving. Had a little dizznesss. Shortness of breath im proved. Denies n/v fever sweats chills shortness of breath or chest pain at this time. 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 was transfused 1 unit, hgb did not improve, follow labs transfuse as needed. Clears Hgb improved today from 6.9 to 7.6, will recheck hgb later today Plan to scope tomorrow egd and colonoscopy. Bowel prep today. NPO after midnight IV fluids Supplemental O2 Hold anticoagulant Protonix Cardiology consulted and has seen patient for Afib Supervisory-Addendum Brief Verification & Attestation Participated in pt care: history, MDM, physical Personally performed: exam, history, MDM, supervision of care Care discussed with: Medical Student Procedures: n/a Results interpretation: Verified all documentation Verification and Attestation of Medical Student E/M Service A medical student performed and documented this service in my presence. I reviewed and verified all information documented by the medical student and made modifications to such information, when appropriate. I personally performed the physical exam and medical decision making. Benigno Treviño, Nov 08, 2022,13:37 DENISE URBAN Nov 08, 2022 07:11 BENIGNO TREVIÑO DO Nov 08, 2022 13:40
[2022-11-08 07:55] VITALS: BP 160/76
[2022-11-08] MEDS: ALLOPURINOL 100 MG (ZYLOPRIM) TAB PO SCH (08:56)
[2022-11-08] MEDS: DULoxetine 30 MG (CYMBALTA) CAP PO SCH (08:56)
[2022-11-08] MEDS: AMIODARONE 200 MG (CORDARONE) TAB PO SCH (08:57)
[2022-11-08] MEDS: PANTOPRAZOLE 40 MG (PROTONIX) VIAL IV SCH (08:57)
[2022-11-08] MEDS: ACETAMINOPHEN 325 MG TABLET PO PRN ×2 (11:09→22:16)
--- NOTE | 2022-11-08 11:13 | Progress Note - Hospitalist ---
Subjective HPI/CC On Admission Date Seen by Provider: Nov 08, 2022 Patient is a 77-year-old female with past medical history of atrial fibrillation on chronic anticoagulation, GI bleed, CHF, hypertension who presented to the emergency department due to low hemoglobin. She reports that she has been feeling poorly and short of breath. She states with any type of exertion she becomes quite short of breath and is fatigued. She was going to e her primary care physician last week but was unable to get in before the weekend so tried to tough it out. She had labs drawn yesterday by her PCP as an outpatient was found to have a hemoglobin of 6.6 and was referred to the emergency room. Repeat lab work confirmed the anemia with a hemoglobin of 6.8. She denies any dark stools though states she has had a GI bleed in the past after her knee surgery where she required 5 to 6 units of blood. She has been compliant with her anticoagulation for her atrial fibrillation. She was given 1 unit packed red blood cells and admitted to the hospital. Her hemoglobin remains low at 6.9. Surgery has been consulted to assist with further work-up. Subjective/Events-last exam Pt reports doing well. Feeling a little better. Was able to get up and take a shower but still having some FLORES. Discussed plans for inpatient vs outpatient scope and she would like to do it inpatient if able. Objective Exam Vital Signs Vital Signs Date Time Temp Pulse Resp B/P (MAP) Pulse Ox O2 Delivery O2 Flow Rate FiO2 11/08/22 07:55 36.5 66 20 160/76 (104) 97 Nasal Cannula 3.00 Capillary Refill : Less Than 3 Seconds General Appearance: No Apparent Distress Respiratory: Lungs Clear, No Respiratory Distress Cardiovascular: Regular Rate, Rhythm, No Murmur Neurologic/Psychiatric: Alert, Oriented x3 Results/Procedures Lab Laboratory Tests 11/08/22 05:05 Patient resulted labs reviewed. Assessment/Plan Assessment and Plan Assess & Plan/Chief Complaint Anemia fecal occult negative Hgb up to 7.6 Normal iron studies, B12, Folic acid level Surgery consulted, appreciate recs Hopeful for scope maybe on Sunday? Stomatocytes seen on CBC- denies alcohol use Consider heme consult for scopes negative CAD pA fib CHF HTN Hold eliquis EF 45% from 10.22 with grade 2 diastolic dysfunction No evidence of failure, resume home lasix Continue home meds as appropriate DVT ppx: SCDs only Diagnosis/Problems Diagnosis/Problems (1) Anemia Status: Acute Qualifiers: Anemia type: unspecified type Qualified Codes: D64.9 - Anemia, unspecified (2) Afib Status: Acute Qualifiers: Atrial fibrillation type: unspecified chronic Qualified Codes: I48.20 - Chronic atrial fibrillation, unspecified (3) Chronic anticoagulation Status: Acute SUMMER MARTIN MD Nov 08, 2022 11:13
[2022-11-08 11:25] VITALS: BP 138/90
[2022-11-08] MEDS ORDERED: FUROSEMIDE 40 MG (LASIX) TAB PO NR (11:30)
[2022-11-08] MEDS ORDERED: GOLYTELY POWDER 4000 ML BTL PO NR (13:30)
[2022-11-08 15:16] VITALS: BP 154/75
[2022-11-08 19:35] VITALS: BP 168/79
[2022-11-08] MEDS: MELATONIN 3 MG TABLET PO PRN (22:16)
[2022-11-08 23:08] VITALS: BP 155/67
[2022-11-09] VITALS (11 sets, daily range): BP systolic 104–173; BP diastolic 51–79
[2022-11-09 06:22] LABS: POTASSIUM 3.7 MMOL/L (3.6-5.0)
[2022-11-09 06:23] LABS: CALCIUM 9.2 MG/DL (8.5-10.1)
[2022-11-09 06:24] LABS: HEMATOCRIT 25 % (35-52); HEMOGLOBIN 7.2 g/dL (11.5-16.0); MEAN CORPUSCULAR HEMOGLOBIN 22 pg (25-34); MEAN CORPUSCULAR HGB CONC 29 g/dL (32-36); MEAN CORPUSCULAR VOLUME 77 fL (80-99); MEAN PLATELET VOLUME 10.4 fL (9.0-12.2); PLATELET COUNT 148 10^3/uL (130-400); WHITE BLOOD COUNT 2.8 10^3/uL (4.3-11.0)
[2022-11-09 06:28] LABS: CREATININE SERUM 0.95 MG/DL (0.60-1.30)
--- NOTE | 2022-11-09 07:13 | Progress Note - Surgery ---
DENISE URBAN 11/09/2212: Subjective Date Seen by a Provider: Nov 09, 2022 Time Seen by a Provider: 07:00 Subjective/Events-last exam Patient says she is feeling the same this morning. She claimed she drank half of the bowel prep jug yesterday, had several BMs that were non-bloody. She is a mbulating independently and voiding without difficulty. She is only SOB when she does not wear her oxygen. She denies any pain. Hgb dropped to 7.2 from 7.6 yesterday, she is ready to be scoped today. Review of Systems General: No Chills, No Night Sweats HEENT: Head Aches (not new, she has had since she came in); No Visual Changes Pulmonary: No Dyspnea, No Cough Cardiovascular: No: Chest Pain, Palpitations, Lt Headedness Gastrointestinal: No: Nausea, Vomiting, Abdominal Pain Genitourinary: No Dysuria, No Frequency, No Hematuria Musculoskeletal: back pain (from lying down so much); No: neck pain, shoulder pain Neurological: No: Weakness, Numbness, Confusion Objective Exam Vital Signs Date Time Temp Pulse Resp B/P (MAP) Pulse Ox O2 Delivery O2 Flow Rate FiO2 11/09/22 04:00 36.6 57 20 147/72 (97) 97 Nasal Cannula 2.00 11/09/22 01:00 70 11/08/22 23:08 36.6 66 18 155/67 (96) 98 Nasal Cannula 2.00 11/08/22 20:00 Room Air 11/08/22 19:35 36.2 61 18 168/79 (108) 100 Nasal Cannula 3.00 11/08/22 19:00 64 11/08/22 15:16 36.5 75 18 154/75 (101) 97 Nasal Cannula 3.00 11/08/22 11:25 36.9 76 19 138/90 (106) 98 Nasal Cannula 3.00 11/08/22 08:00 Room Air 11/08/22 07:55 36.5 66 20 160/76 (104) 97 Nasal Cannula 3.00 11/08/22 07:43 67 I & O 11/09/22 07:00 Intake Total 4935 ml Output Total 1400 ml Balance 3535 ml Capillary Refill : Less Than 3 Seconds General Appearance: No Apparent Distress, Chronically ill, Obese HEENT: PERRL/EOMI, Moist Mucous Membranes Neck: Non Tender, Supple Respiratory: No Accessory Muscle Use, No Respiratory Distress Cardiovascular: No Murmur, Bradycardia Gastrointestinal: non tender, soft Extremity: Non Tender, No Calf Tenderness Neurologic/Psychiatric: Alert, Oriented x3 Skin: Normal Color, Warm/Dry Lymphatic: No Adenopathy Results Lab Laboratory Tests 11/08/22 12:35: Lab Scanned Report Transfusion Reaction Form 11/09/22 06:01: White Blood Count 2.8L, Red Blood Count 3.21L, Hemoglobin 7.2L, Hematocrit 25L, Mean Corpuscular Volume 77L, Mean Corpuscular Hemoglobin 22L, Mean Corpuscular Hemoglobin Concent 29L, Red Cell Distribution Width 19.1H, Platelet Count 148, Mean Platelet Volume 10.4, Sodium Level 137, Potassium Level 3.7, Chloride Level 100, Carbon Dioxide Level 27, Anion Gap 10, Blood Urea Nitrogen 12, Creatinine 0.95, Estimat Glomerular Filtration Rate 62, BUN/Creatinine Ratio 13, Glucose Level 93, Calcium Level 9.2 Assessment/Plan Assessment/Plan Assessment/Plan Anemia-fe def 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 has been transfused 2 units, hgb mildly improved but is back down today, follow labs transfuse as needed. Bowel prep completed yesterday Hgb 7.2 today from 7.6 Plan to scope today, egd and colonoscopy IV fluids Supplemental O2 Hold anticoagulant Protonix Cardiology consulted and has seen patient for Afib BENIGNO TREVIÑO DO 11/09/22 1044: Subjective Subjective/Events-last exam No changes. Did prep last night. Non bloody bowel movements. Slight shortness of breath. Hgb slight drop. Denies n/v fever sweats chill or chest pain. 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 has been transfused 2 units, hgb mildly improved but is back down today, follow labs transfuse as needed. Bowel prep completed yesterday Hgb 7.2 today from 7.6 Plan to scope today, egd and colonoscopy IV fluids Supplemental O2 Hold anticoagulant Protonix Cardiology consulted and has seen patient for Afib Supervisory-Addendum Brief Verification & Attestation Participated in pt care: history, MDM, physical Personally performed: exam, history, MDM, supervision of care Care discussed with: Medical Student Procedures: n/a Results interpretation: Verified all documentation Verification and Attestation of Medical Student E/M Service A medical student performed and documented this service in my presence. I reviewed and verified all information documented by the medical student and made modifications to such information, when appropriate. I personally performed the physical exam and medical decision making. Benigno Treviño, Nov 09, 2022,10:44 DENISE URBAN Nov 09, 2022 07:12 BENIGNO TREVIÑO DO Nov 09, 2022 10:44
[2022-11-09] MEDS: PANTOPRAZOLE 40 MG (PROTONIX) VIAL IV SCH (08:27)
[2022-11-09] MEDS: FUROSEMIDE 20 MG (LASIX) TAB PO SCH (08:29)
[2022-11-09] MEDS ORDERED: LACTATED RINGERS 1,000 ML IV STA (10:57)
[2022-11-09] MEDS ORDERED: HURRICAINE EXT TUBE (BENZOCAINE) XX PRN (11:00)
--- NOTE | 2022-11-09 11:21 | Progress Note-Post Operative ---
Post-Operative Progess Note Surgeon (s)/Communications Director (s) Surgeon BENIGNO DAVID DO Communications Director: na Pre-Operative Diagnosis anemia Post-Operative Diagnosis hiatal hernia, diverticulosis Procedure & Operative Findings Date of Procedure 11/09/22 Procedure Performed/Findings egd and colonoscopy Anesthesia Type per credit and collections representative Estimated Blood Loss Estimated blood loss (mL): none Specimens/Packing Specimens Removed na BENIGNO DAVID DO Nov 09, 2022 11:21
[2022-11-09] MEDS ORDERED: PROPOFOL INJECTION 50 ML IV ONE (11:22)
--- NOTE | 2022-11-09 11:26 | Anesthesia-General Post-Op ---
MAC Patient Condition Mental Status/LOC: Same as Preop Cardiovascular: Satisfactory Nausea/Vomiting: Absent Respiratory: Satisfactory Pain: Controlled Complications: Absent Post Op Complications Complications None Follow Up Care/Instructions Patient Instructions None needed. Anesthesiology Discharge Order Discharge Order Patient is doing well, no complaints, stable vital signs, no apparent adverse anesthesia problems. No complications reported per nursing. AMPARO MONROY CRNA Nov 09, 2022 11:26
--- NOTE | 2022-11-09 11:56 | Progress Note - Hospitalist ---
Subjective HPI/CC On Admission Date Seen by Provider: Nov 09, 2022 Patient is a 77-year-old female with past medical history of atrial fibrillation on chronic anticoagulation, GI bleed, CHF, hypertension who presented to the emergency department due to low hemoglobin. She reports that she has been feeling poorly and short of breath. She states with any type of exertion she becomes quite short of breath and is fatigued. She was going to [employer] her primary care physician last week but was unable to get in before the weekend so tried to tough it out. She had labs drawn yesterday by her PCP as an outpatient was found to have a hemoglobin of 6.6 and was referred to the emergency room. Repeat lab work confirmed the anemia with a hemoglobin of 6.8. She denies any dark stools though states she has had a GI bleed in the past after her knee surgery where she required 5 to 6 units of blood. She has been compliant with her anticoagulation for her atrial fibrillation. She was given 1 unit packed red blood cells and admitted to the hospital. Her hemoglobin remains low at 6.9. Surgery has been consulted to assist with further work-up. Subjective/Events-last exam Pt reports doing well but not enjoying bowel prep. Has been up multiple times. Thinks breathing is better though. Objective Exam Vital Signs Vital Signs Date Time Temp Pulse Resp B/P (MAP) Pulse Ox O2 Delivery O2 Flow Rate FiO2 11/09/22 11:30 59 16 100 OxyMask 6.00 11/09/22 07:35 36.9 155/73 (100) Capillary Refill : Less Than 3 Seconds General Appearance: No Apparent Distress, Obese Respiratory: Lungs Clear Cardiovascular: Regular Rate, Rhythm, No Murmur Neurologic/Psychiatric: Alert, Oriented x3 Results/Procedures Lab Laboratory Tests 11/09/22 06:01 Patient resulted labs reviewed. Assessment/Plan Assessment and Plan Assess & Plan/Chief Complaint Anemia fecal occult negative Hgb down to 7.2 Will give another unit due to cardiac disease to keep above 8 Normal iron studies, B12, Folic acid level Surgery consulted, appreciate recs Scope today Stomatocytes seen on CBC- denies alcohol use Consider heme consult if scopes negative CAD pA fib CHF HTN Hold eliquis EF 45% from 10.22 with grade 2 diastolic dysfunction No evidence of failure, resume home lasix Continue home meds as appropriate DVT ppx: SCDs only Diagnosis/Problems Diagnosis/Problems (1) Anemia Status: Acute Qualifiers: Anemia type: unspecified type Qualified Codes: D64.9 - Anemia, unspecified (2) Afib Status: Acute Qualifiers: Atrial fibrillation type: unspecified chronic Qualified Codes: I48.20 - Chronic atrial fibrillation, unspecified (3) Chronic anticoagulation Status: Acute SUMMER MARTIN MD Nov 09, 2022 11:56
[2022-11-09] MEDS ORDERED: NS IV 500 ML 500 ML IV SCH ×2 (12:00)
[2022-11-09] MEDS: ALLOPURINOL 100 MG (ZYLOPRIM) TAB PO SCH (14:39)
[2022-11-09] MEDS: AMIODARONE 200 MG (CORDARONE) TAB PO SCH (14:39)
[2022-11-09] MEDS: DULoxetine 30 MG (CYMBALTA) CAP PO SCH (14:39)
--- NOTE | 2022-11-09 22:37 | OPERATIVE REPORT ---
DATE OF SERVICE: 11/09/2022 PREOPERATIVE DIAGNOSIS: Anemia. POSTOPERATIVE DIAGNOSES: 1. Hiatal hernia. 2. Diverticulosis. PROCEDURE: EGD and [ ]. SURGEON: Benigno Treviño DO ANESTHESIA: Per [employer]. ESTIMATED BLOOD LOSS: None. COMPLICATIONS: None. INDICATIONS: The patient is a 77-year-old female with anemia. She understands risks and benefits of procedure and wished to proceed. Consent was signed in the chart. DESCRIPTION OF PROCEDURE: The patient was taken to endoscopy suite and placed in the left lateral recumbent position. Timeout was performed. Scope was inserted in the mouth, down the esophagus, stomach and the duodenum without difficulty. No polyps, masses or ulcerations within the duodenum. Scope was slowly retracted in the stomach where it was further insufflated. No polyps, masses or ulcerations. Scope was retroflexed noting a small to moderate size hiatal hernia, no other pathology. Scope was returned to its normal position, slowly withdrawn until distal esophagus, which had normal appearance, no polyps, masses or ulcerations. Scope was slowly retracted back until completely removed. The patient tolerated the procedure well without complications, taken to recovery room in stable condition. RECOMMENDATIONS: The patient will repeat colonoscopy on as needed basis. Would recommend high fiber diet due to diverticulosis. No evidence of any bleeding. Job ID: [id number] DocumentID: [id number] Dictated Date: 11/09/2022 15:10:39 Director Energy Date: 11/09/2022 22:35:00 Dictated By: BENIGNO TREVIÑO DO
[2022-11-09] MEDS: MELATONIN 3 MG TABLET PO PRN (23:15)
[2022-11-10 03:56] VITALS: BP 156/76
[2022-11-10 05:27] LABS: HEMATOCRIT 27 % (35-52); MEAN CORPUSCULAR HEMOGLOBIN 23 pg (25-34); MEAN CORPUSCULAR HGB CONC 30 g/dL (32-36); MEAN CORPUSCULAR VOLUME 78 fL (80-99); PLATELET COUNT 154 10^3/uL (130-400)
[2022-11-10 05:39] LABS: POTASSIUM 3.9 MMOL/L (3.6-5.0)
[2022-11-10 05:41] LABS: CALCIUM 9.3 MG/DL (8.5-10.1)
[2022-11-10 05:45] LABS: CREATININE SERUM 0.98 MG/DL (0.60-1.30)
--- NOTE | 2022-11-10 07:29 | Progress Note - Surgery ---
DENISE URBAN 11/10/22 0729: Subjective Date Seen by a Provider: Nov 10, 2022 Time Seen by a Provider: 07:15 Subjective/Events-last exam Patient says she is feeling overall better today but is appears much more SOB. She informed me that was because she had just gotten up and walked to the bath room. She is voiding normally, she had one BM following her colonoscopy yesterday. She received a unit of blood yesterday which is her third total since admission, hgb improved to 8.0 from 7.2. She denies pain other than a persistent headache she has had. Review of Systems General: No Chills, No Night Sweats HEENT: Head Aches; No Visual Changes, No Sore Throat Pulmonary: Dyspnea; No Cough Cardiovascular: Lt Headedness (on standing, goes away quickly); No: Chest Pain, Palpitations Gastrointestinal: No: Nausea, Vomiting, Abdominal Pain Genitourinary: No Dysuria, No Frequency Musculoskeletal: No: neck pain, shoulder pain, back pain Neurological: No: Weakness, Numbness, Confusion Objective Exam Vital Signs Date Time Temp Pulse Resp B/P (MAP) Pulse Ox O2 Delivery O2 Flow Rate FiO2 11/10/22 03:56 36.5 65 18 156/76 (102) 97 Nasal Cannula 2.00 11/10/22 01:00 70 11/09/22 23:12 36.6 72 20 147/72 (97) 96 Nasal Cannula 2.00 11/09/22 20:25 Nasal Cannula 2.00 11/09/22 20:02 36.9 73 19 138/71 (93) 96 Nasal Cannula 2.00 11/09/22 19:00 80 11/09/22 16:58 36.8 73 18 173/76 (108) 96 Room Air 2.00 11/09/22 16:12 36.8 11/09/22 16:02 65 165/76 99 Nasal Cannula 2.00 11/09/22 14:11 36.6 67 18 147/79 98 Nasal Cannula 2.00 11/09/22 13:44 36.2 65 18 167/75 99 Nasal Cannula 2.00 11/09/22 12:59 59 11/09/22 12:04 36.2 65 18 167/75 (105) 99 Nasal Cannula 2.00 11/09/22 11:30 59 16 100 OxyMask 6.00 11/09/22 11:25 54 16 100 OxyMask 10.00 11/09/22 09:04 Room Air 11/09/22 07:35 36.9 61 20 155/73 (100) 99 Nasal Cannula 3.00 I & O 11/10/22 07:00 Intake Total 1860 ml Output Total 950 ml Balance 910 ml Capillary Refill : Less Than 3 Seconds General Appearance: No Apparent Distress, Obese HEENT: PERRL/EOMI, Moist Mucous Membranes Neck: Non Tender, Supple Respiratory: Lungs Clear, No Respiratory Distress Cardiovascular: Regular Rate, Rhythm, No Murmur Gastrointestinal: non tender, soft Extremity: Non Tender, No Calf Tenderness Neurologic/Psychiatric: Alert, Oriented x3 Skin: Normal Color, Warm/Dry Lymphatic: No Adenopathy Results Lab Laboratory Tests 11/10/22 05:12: White Blood Count 3.0L, Red Blood Count 3.42L, Hemoglobin 8.0L, Hematocrit 27L, Mean Corpuscular Volume 78L, Mean Corpuscular Hemoglobin 23L, Mean Corpuscular Hemoglobin Concent 30L, Red Cell Distribution Width 19.3H, Platelet Count 154, Mean Platelet Volume 10.0, Sodium Level 138, Potassium Level 3.9, Chloride Level 101, Carbon Dioxide Level 27, Anion Gap 10, Blood Urea Nitrogen 11, Creatinine 0.98, Estimat Glomerular Filtration Rate 60, BUN/Creatinine Ratio 11, Glucose Level 97, Calcium Level 9.3 Microbiology 11/08/22 MRSA Screen - Final, Complete MRSA not isolated Assessment/Plan Assessment/Plan Assessment/Plan Anemia-fe def Shortness of breath skilled nursing use of Anticoagulant Hx of AFib Pt. has been transfused 3 units, hgb improved from 7.2 to 8.0, follow labs transfuse as needed. Colonoscopy and EGD completed yesterday Pt. should follow up with Dr. Treviño's office in two weeks following discharge IV fluids Supplemental O2 Hold anticoagulant Protonix Cardiology consulted and has seen patient for Afib BENIGNO TREVIÑO DO 11/10/22 1071: Subjective Subjective/Events-last exam Feelign well. Hgb improved. No blood in stools. Tolerating diet. Denies n/v fever sweats chills shortness of breath or chest pain. 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 has been transfused 3 units, hgb improved from 7.2 to 8.0, follow labs transfuse as needed. Colonoscopy and EGD completed yesterday Pt. should follow up with Dr. Treviño's office in two weeks following discharge IV fluids Supplemental O2 Hold anticoagulant Protonix Cardiology consulted and has seen patient for Afib Will sign off, call if needed. Supervisory-Addendum Brief Verification & Attestation Participated in pt care: history, MDM, physical Personally performed: exam, history, MDM, supervision of care Care discussed with: Medical Student Procedures: n/a Results interpretation: Verified all documentation Verification and Attestation of Medical Student E/M Service A medical student performed and documented this service in my presence. I reviewed and verified all information documented by the medical student and made modifications to such information, when appropriate. I personally performed the physical exam and medical decision making. Benigno Treviño, Nov 10, 2022,15:52 DENISE URBAN Nov 10, 2022 07:29 BENIGNO TREVIÑO DO Nov 10, 2022 15:52
[2022-11-10 07:54] VITALS: BP 163/80
[2022-11-10] MEDS: AMIODARONE 200 MG (CORDARONE) TAB PO SCH (09:21)
[2022-11-10] MEDS: DULoxetine 30 MG (CYMBALTA) CAP PO SCH (09:21)
[2022-11-10] MEDS: FUROSEMIDE 20 MG (LASIX) TAB PO SCH (09:21)
[2022-11-10] MEDS: PANTOPRAZOLE 40 MG (PROTONIX) VIAL IV SCH (09:22)
[2022-11-10] MEDS: ALLOPURINOL 100 MG (ZYLOPRIM) TAB PO SCH (09:22)
[2022-11-10 12:06] VITALS: BP 156/81
--- NOTE | 2022-11-10 12:22 | Discharge Summary ---
Diagnosis/Chief Complaint Date of Admission Nov 06, 2022 at 18:55 Date of Discharge Discharge Date: Nov 10, 2022 Admission Diagnosis Anemia Primary Care Teresita Enriquez MD Discharge Diagnosis (1) Anemia Status: Acute (2) Afib Status: Acute (3) Chronic anticoagulation Status: Acute Discharge Summary Discharge Physical Exam Allergies: Coded Allergies: Penicillins (Verified Allergy, Unknown, 06/10/19) adhesive tape (Verified Allergy, Unknown, 06/10/19) amoxicillin (Verified Allergy, Unknown, 06/10/19) celecoxib (Verified Allergy, Unknown, 06/10/19) dapsone (Verified Allergy, Unknown, 06/10/19) succinylcholine (Verified Allergy, Unknown, 06/10/19) Vitals & I&Os Vital Signs Date Time Temp Pulse Resp B/P (MAP) Pulse Ox O2 Delivery O2 Flow Rate FiO2 11/10/22 14:28 36.5 73 18 156/81 96 Nasal Cannula 2.00 General Appearance: No Apparent Distress Respiratory: Lungs Clear, No Respiratory Distress Gastrointestinal: Normal Bowel Sounds, Soft Neurologic/Psychiatric: Alert, Oriented x3 Hospital Course Patient was admitted to the hospital secondary to anemia. She reports she has been feeling short of breath for a while and was finally able to get labs which showed a hemoglobin of 6.6. She was referred to the emergency department for this and they were confirmed where her hemoglobin was 6.8. She was transfused a unit in the emergency department and admitted for further work-up. Surgery was consulted and she underwent EGD and colonoscopy after being off of her anticoagulation for 3 days. This only showed a hiatal hernia and diverticulosis but no source of her bleeding was found. She ultimately ended up getting 3 units of blood while she was here increasing her hemoglobin to 8.0. This is near her baseline from June where she was 8.7. I did get an iron panel which showed a normal iron level and high TIBC and mildly low ferritin. Her B12 and folate were normal as well. Her LDH was checked and was negative. She was microcytic on her CBC and smear showed moderate stomatocytes. She denies any alcohol use. Because of this she was referred to Dr. Mathew for hematological evaluation. I called her primary care physician Dr. Enriquez and updated her on all of this. She is to follow-up with Dr. Enriquez in the next week. Strict return precautions were given. Due to her dyspnea she was tested for oxygen and was found to have a 2 L baseline need and this was arranged prior to discharge. Labs (last 24 hrs) Microbiology 11/08/22 MRSA Screen - Final, Complete MRSA not isolated Patient resulted labs reviewed. Pending Labs Discussion & Recommendations Discharge Planning: >30 minutes discharge planning Discharge Home Medications: Active Scripts Active Reported Melatonin 3 Mg Tablet 6 Mg PO HS PRN TAKES 2 (3MG) TABS Vitamin B-12 (Cyanocobalamin (Vitamin B-12)) 500 Mcg Tablet 500 Mcg PO DAILY Xanax (Alprazolam) 0.25 Mg Tablet 0.25 Mg PO BID PRN Metoprolol Succinate 50 Mg Tab.er.24h 25 Mg PO BID TAKES OF A 50MG TAB Diltiazem ER (Diltiazem HCl) 180 Mg Capsule.er 180 Mg PO DAILY Furosemide 40 Mg Tablet 20-40 Mg PO DAILY TAKES TO 1 (40MG) TAB Eliquis (Apixaban) 5 Mg Tablet 5 Mg PO BID Amiodarone HCl 200 Mg Tablet 200 Mg PO DAILY Allopurinol 100 Mg Tablet 100 Mg PO DAILY Duloxetine HCl 60 Mg Capsule.dr 60 Mg PO DAILY Ramipril 10 Mg Capsule 10 Mg PO DAILY Instructions to patient/family Please see electronic discharge instructions given to patient. Problem Qualifiers (1) Anemia: Anemia type: unspecified type Qualified Codes: D64.9 - Anemia, unspecified (2) Afib: Atrial fibrillation type: unspecified chronic Qualified Codes: I48.20 - Chronic atrial fibrillation, unspecified SUMMER MARTIN MD Nov 10, 2022 12:22
--- NOTE | 2022-11-10 13:35 | Discharge Inst-Simple/Standard ---
Discharge Inst-Standard Patient Instructions/Follow Up Plan of Care/Instructions/FU: Please continue to take your medications as written. Please follow up with your primary care doctor to follow up this hospital stay. Activity as Tolerated: Yes Discharge Diet: No Restrictions Return to The Hospital For: Chest pain, shortness of breath, fever, weakness, if you feel you are getting worse. SUMMER MARTIN MD Nov 10, 2022 13:35
[2022-11-10 14:28] VITALS: BP 156/81
== END 2022-11-10 15:00 | disposition home or self-care (01) | DRG 812 ==
LOC: EDUNIT# 15:03 → ER 15:06 → 4TH 18:55
PROVIDERS: ADMIT Family Medicine; ATTEND Family Medicine
PROC: 0DJ08ZZ Inspection of Upper Intestinal Tract, Via Natural or Artificial Opening Endoscopic (ICD-10-PCS; principal; 2022-11-09 10:44)
PROC: 0DJD8ZZ Inspection of Lower Intestinal Tract, Via Natural or Artificial Opening Endoscopic (ICD-10-PCS; 2022-11-09 10:44)
DX: D64.9 Anemia, unspecified (principal); I48.20 Chronic atrial fibrillation, unspecified; I42.9 Cardiomyopathy, unspecified; Z79.01 Long term (current) use of anticoagulants; I50.9 Heart failure, unspecified; J44.9 Chronic obstructive pulmonary disease, unspecified; Z96.653 Presence of artificial knee joint, bilateral; I25.10 Atherosclerotic heart disease of native coronary artery without angina pectoris; I11.0 Hypertensive heart disease with heart failure; M19.90 Unspecified osteoarthritis, unspecified site; I48.0 Paroxysmal atrial fibrillation; Z79.899 Other long term (current) drug therapy; K57.90 Diverticulosis of intestine, part unspecified, without perforation or abscess without bleeding; K44.9 Diaphragmatic hernia without obstruction or gangrene
CPT/HCPCS: 36415; 74177; 80048; 82274; 82607; 82728; 82746; 83540; 83550; 83615; 84100; 85007; 85027; 85610; 86850; 86900; 86901; 86920; 87081; 93005

== ENCOUNTER → 2022-11-06 | Outpatient (CLI) | payer MEDICARE ==
[~2022-11-06] MED LIST changes: +ALPR0.25 PO; +CYAN500T8 PO; +DILT180C82 PO; +FURO40TA4 PO; +MELA3TAB39 PO
[2022-11-06 12:13] LABS: BASOPHILS % (AUTO) 1 % (0-10); EOSINOPHILS % (AUTO) 0 % (0-10); HEMATOCRIT 24 % (35-52); LYMPHOCYTES # (AUTO) 1.1 10^3/uL (1.0-4.0); LYMPHOCYTES % (AUTO) 29 % (12-44); MEAN CORPUSCULAR HEMOGLOBIN 20 pg (25-34); MEAN CORPUSCULAR HGB CONC 27 g/dL (32-36); MEAN CORPUSCULAR VOLUME 75 fL (80-99); MEAN PLATELET VOLUME 9.8 fL (9.0-12.2); MONOCYTES # (AUTO) 0.5 10^3/uL (0.0-1.0); MONOCYTES % (AUTO) 14 % (0-12); NEUTROPHILS # (AUTO) 2.1 10^3/uL (1.8-7.8); NEUTROPHILS % (AUTO) 56 % (42-75); PLATELET COUNT 212 10^3/uL (130-400); WHITE BLOOD COUNT 3.7 10^3/uL (4.3-11.0)
[2022-11-06 12:43] LABS: POTASSIUM 4.1 MMOL/L (3.6-5.0)
--- NOTE | 2022-11-06 12:43 | Diagnostic Imaging Report ---
CHEST PA/LAT (2 VIEW) Indication: Dyspnea Comparison: 07/04/2022 Findings: Hazy opacities in the right perihilar region are more conspicuous. No pleural effusion or pneumothorax. Normal heart size. Moderate size hiatal hernia is unchanged.Left shoulder arthroplasty. Impression: More conspicuous right perihilar opacities could be due to pneumonia in appropriate setting. Alternatively, atelectasis is appearance. Dictated by: Dictated on workstation # [id number]
[2022-11-06 12:44] LABS: ALBUMIN 4.4 GM/DL (3.2-4.5); BILIRUBIN,TOTAL 0.5 MG/DL (0.1-1.0); CREATININE SERUM 1.19 MG/DL (0.60-1.30); TOTAL PROTEIN 7.1 GM/DL (6.4-8.2)
[2022-11-06 13:19] LABS: HEMOGLOBIN 6.6 g/dL (11.5-16.0)
== END ==
LOC: RAD FS 11:33
PROVIDERS: ATTEND Family Medicine
DX: R06.00 Dyspnea, unspecified (principal)
CPT/HCPCS: 36415; 71046; 80053; 83880; 85025

== ENCOUNTER 2022-11-17 10:54 | Outpatient (RCR) | payer MEDICARE ==
[~2022-11-17 10:54] MED LIST changes: +ALPR0.25 PO; +CYAN500T8 PO; +DILT180C82 PO; +FURO40TA4 PO; +MELA3TAB39 PO
[2022-11-17 11:54] LABS: BASOPHILS % (AUTO) 1 % (0-10); EOSINOPHILS % (AUTO) 1 % (0-10); HEMATOCRIT 32 % (35-52); HEMOGLOBIN 9.2 g/dL (11.5-16.0); LYMPHOCYTES % (AUTO) 26 % (12-44); MEAN CORPUSCULAR HEMOGLOBIN 24 pg (25-34); MEAN CORPUSCULAR HGB CONC 29 g/dL (32-36); MEAN CORPUSCULAR VOLUME 81 fL (80-99); MEAN PLATELET VOLUME 9.8 fL (9.0-12.2); MONOCYTES # (AUTO) 0.5 10^3/uL (0.0-1.0); MONOCYTES % (AUTO) 14 % (0-12); NEUTROPHILS # (AUTO) 2.1 10^3/uL (1.8-7.8); NEUTROPHILS % (AUTO) 58 % (42-75); PLATELET COUNT 187 10^3/uL (130-400); WHITE BLOOD COUNT 3.6 10^3/uL (4.3-11.0)
[2022-11-17 12:19] LABS: BILIRUBIN,TOTAL 0.5 MG/DL (0.1-1.0); CALCIUM 9.9 MG/DL (8.5-10.1); CREATININE SERUM 1.28 MG/DL (0.60-1.30); POTASSIUM 4.4 MMOL/L (3.6-5.0); TOTAL PROTEIN 6.8 GM/DL (6.4-8.2)
== END 2022-11-19 ==
LOC: ONC 10:54
PROVIDERS: ATTEND Internal Medicine Hematology & Oncology
DX: D50.9 Iron deficiency anemia, unspecified (principal); I48.91 Unspecified atrial fibrillation; J44.9 Chronic obstructive pulmonary disease, unspecified; E78.5 Hyperlipidemia, unspecified; E66.01 Morbid (severe) obesity due to excess calories; I10 Essential (primary) hypertension
CPT/HCPCS: 80053; 82728; 83540; 83550; 84443; 85025

== ENCOUNTER → 2022-12-19 | Outpatient (CLI) | payer MEDICARE ==
[2022-12-19 17:49] LABS: BILIRUBIN,URINE NEGATIVE (NEGATIVE); COLOR,URINE YELLOW; GLUCOSE, URINE (UA) NEGATIVE (NEGATIVE); KETONES,URINE TRACE (NEGATIVE); LEUKOCYTE ESTERASE ,URINE NEGATIVE (NEGATIVE); NITRITE,URINE POSITIVE (NEGATIVE); PH,URINE 6.5 (5-9); PROTEIN,URINE NEGATIVE (NEGATIVE)
[2022-12-19 18:00] LABS: BACTERIA,URINE LARGE /HPF; CLARITY,URINE TURBID
[2022-12-19 18:01] LABS: AMORPHOUS SEDIMENT,UR LARGE AMOR PHOSPHATE /LPF; HYALINE CASTS, URINE 0-2 /LPF; RENAL EPITHELIAL CELLS,URINE RARE /HPF; SQUAMOUS EPITHELIAL CELL,UR RARE /HPF
== END ==
LOC: PVFS 16:55
PROVIDERS: ATTEND Family Medicine
DX: R30.0 Dysuria (principal)
CPT/HCPCS: 81000; 87077; 87088; 87186

== ENCOUNTER 2023-01-01 09:17 | Outpatient (RCR) | payer MEDICARE ==
[2022-12-21 14:21] LABS: BASOPHILS % (AUTO) 1 % (0-10); EOSINOPHILS # (AUTO) 0.1 10^3/uL (0.0-0.3); EOSINOPHILS % (AUTO) 3 % (0-10); HEMATOCRIT 29 % (35-52); HEMOGLOBIN 8.7 g/dL (11.5-16.0); LYMPHOCYTES # (AUTO) 1.2 10^3/uL (1.0-4.0); LYMPHOCYTES % (AUTO) 25 % (12-44); MEAN CORPUSCULAR HEMOGLOBIN 25 pg (25-34); MEAN CORPUSCULAR HGB CONC 30 g/dL (32-36); MEAN CORPUSCULAR VOLUME 85 fL (80-99); MEAN PLATELET VOLUME 10.5 fL (9.0-12.2); MONOCYTES # (AUTO) 0.5 10^3/uL (0.0-1.0); MONOCYTES % (AUTO) 10 % (0-12); NEUTROPHILS % (AUTO) 63 % (42-75); PLATELET COUNT 162 10^3/uL (130-400); WHITE BLOOD COUNT 4.7 10^3/uL (4.3-11.0)
[2022-12-21 14:33] LABS: BILIRUBIN,TOTAL 0.5 MG/DL (0.1-1.0); CALCIUM 9.7 MG/DL (8.5-10.1); CREATININE SERUM 1.28 MG/DL (0.60-1.30); TOTAL PROTEIN 6.5 GM/DL (6.4-8.2)
[2022-12-21] MEDS: IRON SUCROSE 100 MG/5 ML (VENOFER) VIAL CANCER CTR IV SCH (15:51)
[2022-12-21 16:27] VITALS: BP 133/60
[2022-12-25] MEDS: IRON SUCROSE 100 MG/5 ML (VENOFER) VIAL CANCER CTR IV SCH (13:42)
[2022-12-27 13:00] VITALS: BP 143/64
[2022-12-27] MEDS: IRON SUCROSE 200 MG/10 ML (VENOFER) VIAL IV SCH (13:17)
[~2023-01-01] VITALS: Ht 165.1 cm; Wt 109.1 kg
[~2023-01-01 09:17] MED LIST changes: +DILT180C71 PO; -DILT180C82 PO
[2023-01-01] MEDS: IRON SUCROSE 200 MG/10 ML (VENOFER) VIAL IV SCH (13:18)
== END 2023-01-19 | disposition home or self-care (01) ==
LOC: ONC 09:17
PROVIDERS: ATTEND Internal Medicine Hematology & Oncology
DX: D50.9 Iron deficiency anemia, unspecified (principal); I48.91 Unspecified atrial fibrillation; J44.9 Chronic obstructive pulmonary disease, unspecified; E66.01 Morbid (severe) obesity due to excess calories; I11.9 Hypertensive heart disease without heart failure; E78.5 Hyperlipidemia, unspecified
CPT/HCPCS: 36415; 80053; 82728; 83540; 83550; 85025; 96374

== ENCOUNTER 2023-01-22 13:37 | Outpatient (RCR) | payer MEDICARE ==
[2022-12-27 13:00] VITALS: BP 143/64
[2023-01-22 14:05] LABS: BASOPHILS % (AUTO) 1 % (0-10); EOSINOPHILS # (AUTO) 0.2 10^3/uL (0.0-0.3); EOSINOPHILS % (AUTO) 3 % (0-10); HEMATOCRIT 38 % (35-52); LYMPHOCYTES # (AUTO) 1.3 10^3/uL (1.0-4.0); LYMPHOCYTES % (AUTO) 26 % (12-44); MEAN CORPUSCULAR HEMOGLOBIN 30 pg (25-34); MEAN CORPUSCULAR HGB CONC 32 g/dL (32-36); MEAN CORPUSCULAR VOLUME 94 fL (80-99); MEAN PLATELET VOLUME 11.2 fL (9.0-12.2); MONOCYTES # (AUTO) 0.4 10^3/uL (0.0-1.0); MONOCYTES % (AUTO) 7 % (0-12); NEUTROPHILS # (AUTO) 3.2 10^3/uL (1.8-7.8); NEUTROPHILS % (AUTO) 63 % (42-75); PLATELET COUNT 144 10^3/uL (130-400)
[2023-01-22 14:38] LABS: BILIRUBIN,TOTAL 0.4 MG/DL (0.1-1.0); CALCIUM 9.8 MG/DL (8.5-10.1); CREATININE SERUM 1.05 MG/DL (0.60-1.30); POTASSIUM 4.8 MMOL/L (3.6-5.0); TOTAL PROTEIN 6.6 GM/DL (6.4-8.2)
== END 2023-02-19 | disposition home or self-care (01) ==
LOC: ONC 13:37
PROVIDERS: ATTEND Internal Medicine Hematology & Oncology
DX: D50.9 Iron deficiency anemia, unspecified (principal); I48.91 Unspecified atrial fibrillation; J44.9 Chronic obstructive pulmonary disease, unspecified; E66.01 Morbid (severe) obesity due to excess calories; I11.9 Hypertensive heart disease without heart failure; E78.5 Hyperlipidemia, unspecified; K44.9 Diaphragmatic hernia without obstruction or gangrene
CPT/HCPCS: 36415; 80053; 82728; 83540; 83550; 85025

== ENCOUNTER 2023-04-23 12:59 | Outpatient (RCR) | payer MEDICARE ==
[2022-12-27 13:00] VITALS: BP 143/64
[2023-04-23 13:26] LABS: BASOPHILS % (AUTO) 0 % (0-10); EOSINOPHILS # (AUTO) 0.1 10^3/uL (0.0-0.3); EOSINOPHILS % (AUTO) 1 % (0-10); HEMATOCRIT 37 % (35-52); HEMOGLOBIN 11.9 g/dL (11.5-16.0); LYMPHOCYTES # (AUTO) 0.9 10^3/uL (1.0-4.0); LYMPHOCYTES % (AUTO) 13 % (12-44); MEAN CORPUSCULAR HEMOGLOBIN 33 pg (25-34); MEAN CORPUSCULAR HGB CONC 32 g/dL (32-36); MEAN CORPUSCULAR VOLUME 102 fL (80-99); MEAN PLATELET VOLUME 11.1 fL (9.0-12.2); MONOCYTES # (AUTO) 0.5 10^3/uL (0.0-1.0); MONOCYTES % (AUTO) 7 % (0-12); NEUTROPHILS # (AUTO) 5.6 10^3/uL (1.8-7.8); NEUTROPHILS % (AUTO) 78 % (42-75); PLATELET COUNT 143 10^3/uL (130-400); WHITE BLOOD COUNT 7.2 10^3/uL (4.3-11.0)
[2023-04-23 13:48] LABS: ALBUMIN 3.9 GM/DL (3.2-4.5); BILIRUBIN,TOTAL 0.6 MG/DL (0.1-1.0); CALCIUM 9.4 MG/DL (8.5-10.1); CREATININE SERUM 1.07 MG/DL (0.60-1.30); POTASSIUM 4.1 MMOL/L (3.6-5.0); TOTAL PROTEIN 6.6 GM/DL (6.4-8.2)
[2023-05-14] MEDS ORDERED: RT-ALBUINH INH (12:07)
[2023-05-14] MEDS ORDERED: AZIT250T12 PO (12:07)
[2023-05-14] MEDS ORDERED: PRD20T PO (12:07)
== END 2023-05-22 | disposition home or self-care (01) ==
LOC: ONC 12:59
PROVIDERS: ATTEND Internal Medicine Hematology & Oncology
DX: D50.9 Iron deficiency anemia, unspecified (principal); I48.91 Unspecified atrial fibrillation; K21.9 Gastro-esophageal reflux disease without esophagitis; K44.9 Diaphragmatic hernia without obstruction or gangrene; J44.9 Chronic obstructive pulmonary disease, unspecified; E66.01 Morbid (severe) obesity due to excess calories; I11.9 Hypertensive heart disease without heart failure; E78.5 Hyperlipidemia, unspecified
CPT/HCPCS: 80053; 82728; 83540; 83550; 85025; G0463; 36415; 99214

== ENCOUNTER 2023-05-14 09:46 | Emergency (ER) | payer MEDICARE ==
--- NOTE | 2023-05-14 09:50 | ED Dyspnea ---
General Stated Complaint: SOA History of Present Illness Date Seen by Provider: May 14, 2023 Time Seen by Provider: 09:50 Initial Comments 77-year-old female presents with shortness of breath. She reports she just had a hard time catching her air. Is been going on for at least a week as far as a worsening. She does have chronic dyspnea and is normally on 2 L home oxygen. She reports she has COPD but does not use any inhalers at home. Patient does report she has a history of some similar when she was required to have blood transfusions patient denies any fevers, chills. Allergies and Home Medications Allergies Coded Allergies: Penicillins (Verified Allergy, Unknown, 06/10/19) adhesive tape (Verified Allergy, Unknown, 06/10/19) amoxicillin (Verified Allergy, Unknown, 06/10/19) celecoxib (Verified Allergy, Unknown, 06/10/19) dapsone (Verified Allergy, Unknown, 06/10/19) succinylcholine (Verified Allergy, Unknown, 06/10/19) Patient Home Medication List Home Medication List Reviewed: Yes Albuterol Sulfate (Ventolin Hfa) 1 Puff Puff, 2 PUFF INH Q4H PRN for SHORTNESS OF BREATH Prescribed by: LEATHA FLOYD on 05/14/23 1207 Allopurinol (Allopurinol) 100 Mg Tablet, 100 MG PO DAILY, (Reported) Entered as Reported by: PEDRO PIERRE on 03/28/22 1434 Alprazolam (Xanax) 0.25 Mg Tablet, 0.25 MG PO BID PRN for ANXIETY, (Reported) Entered as Reported by: PEDRO PIERRE on 11/07/22 1154 Amiodarone HCl (Amiodarone HCl) 200 Mg Tablet, 200 MG PO DAILY, (Reported) Entered as Reported by: PEDRO PIERRE on 11/07/22 1154 Apixaban (Eliquis) 5 Mg Tablet, 5 MG PO BID, (Reported) Entered as Reported by: PEDRO PIERRE on 11/07/22 1154 Azithromycin (Azithromycin) 250 Mg Tablet, 250 MG PO UD Prescribed by: LEATHA FLOYD on 05/14/23 1207 Cyanocobalamin (Vitamin B-12) (Vitamin B-12) 500 Mcg Tablet, 500 MCG PO DAILY, (Reported) Entered as Reported by: PEDRO PIERRE on 11/07/22 1154 Diltiazem HCl (Diltiazem ER) 180 Mg Capsule.er, 180 MG PO DAILY, (Reported) Entered as Reported by: PEDRO PIERRE on 11/07/22 1154 Duloxetine HCl (Duloxetine HCl) 60 Mg Capsule.dr, 60 MG PO DAILY, (Reported) Entered as Reported by: PEDRO PIERRE on 03/28/22 1434 Furosemide (Furosemide) 40 Mg Tablet, 20-40 MG PO DAILY, (Reported) Entered as Reported by: PEDRO PIERRE on 11/07/22 1154 Melatonin (Melatonin) 3 Mg Tablet, 6 MG PO HS PRN for SLEEP, (Reported) Entered as Reported by: PEDRO PIERRE on 11/07/22 1154 Metoprolol Succinate (Metoprolol Succinate) 50 Mg Tab.er.24h, 25 MG PO BID, (Reported) Entered as Reported by: PEDRO PIERRE on 11/07/22 1154 Prednisone (Prednisone) 20 Mg Tab, 40 MG PO DAILY Prescribed by: LEATHA FLOYD on 05/14/23 1207 Ramipril (Ramipril) 10 Mg Capsule, 10 MG PO DAILY, (Reported) Entered as Reported by: PEDRO PIERRE on 03/28/22 1434 Review of Systems Review of Systems Constitutional: No chills, No fever Respiratory: see HPI, short of breath; No wheezing Cardiovascular: No chest pain Genitourinary: no symptoms reported Musculoskeletal: no symptoms reported Skin: no symptoms reported Psychiatric/Neurological: No Symptoms Reported Past Scaapic-Qkfyrp-Llpspz Hx Immunizations Up To Date Tetanus Booster (TDap): More than 5yrs Seasonal Allergies Seasonal Allergies: No Past Medical History Surgery/Hospitalization HX: COPD, A-fib, CHF Surgeries: Yes (bilateral knee replacements, carpal tunnel) Abdominal, Gallbladder, Hysterectomy, Orthopedic Respiratory: Yes COPD Cardiac: Yes (CHF) Cardiomyopathy, Coronary Artery Disease, Hypertension 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 oz. kg; 40.02 BMI Method: General Appearance: No Apparent Distress, Obese Respiratory: Decreased Breath Sounds Cardiovascular: Regular Rate, Rhythm Neurologic/Psychiatric: Alert, Oriented x3, No Motor/Sensory Deficits Skin: Normal Color, Warm/Dry Progress/Results/Core Measures Results/Orders Lab Results Laboratory Tests Test 05/14/23 10:00 Range/Units White Blood Count 11.5 H 4.3-11.0 10^3/uL Red Blood Count 3.63 L 3.80-5.11 10^6/uL Hemoglobin 11.8 11.5-16.0 g/dL Hematocrit 37 35-52 % Mean Corpuscular Volume 101 H 80-99 fL Mean Corpuscular Hemoglobin 33 25-34 pg Mean Corpuscular Hemoglobin Concent 32 32-36 g/dL Red Cell Distribution Width 14.0 10.0-14.5 % Platelet Count 187 130-400 10^3/uL Mean Platelet Volume 10.8 9.0-12.2 fL Immature Granulocyte % (Auto) 0 % Neutrophils (%) (Auto) 87 H 42-75 % Lymphocytes (%) (Auto) 5 L 12-44 % Monocytes (%) (Auto) 6 0-12 % Eosinophils (%) (Auto) 1 0-10 % Basophils (%) (Auto) 0 0-10 % Neutrophils # (Auto) 10.0 H 1.8-7.8 10^3/uL Lymphocytes # (Auto) 0.6 L 1.0-4.0 10^3/uL Monocytes # (Auto) 0.7 0.0-1.0 10^3/uL Eosinophils # (Auto) 0.1 0.0-0.3 10^3/uL Basophils # (Auto) 0.0 0.0-0.1 10^3/uL Immature Granulocyte # (Auto) 0.0 0.0-0.1 10^3/uL Neutrophils % (Manual) 89 % Lymphocytes % (Manual) 6 % Monocytes % (Manual) 4 % Eosinophils % (Manual) 1 % Stomatocytes SLIGHT Sodium Level 139 135-145 MMOL/L Potassium Level 4.1 3.6-5.0 MMOL/L Chloride Level 101 98-107 MMOL/L Carbon Dioxide Level 28 21-32 MMOL/L Anion Gap 10 5-14 MMOL/L Blood Urea Nitrogen 15 7-18 MG/DL Creatinine 0.94 0.60-1.30 MG/DL Estimat Glomerular Filtration Rate 63 BUN/Creatinine Ratio 16 Glucose Level 110 H 70-105 MG/DL Calcium Level 9.8 8.5-10.1 MG/DL Corrected Calcium 10.0 8.5-10.1 MG/DL Magnesium Level 1.7 1.6-2.4 MG/DL Total Bilirubin 0.7 0.1-1.0 MG/DL Aspartate Amino Transf (AST/SGOT) 13 5-34 U/L Alanine Aminotransferase (ALT/SGPT) 12 0-55 U/L Alkaline Phosphatase 81 40-136 U/L Troponin I < 0.028 <0.028 NG/ML B-Type Natriuretic Peptide 417.8 H <100.0 PG/ML Total Protein 6.8 6.4-8.2 GM/DL Albumin 3.7 3.2-4.5 GM/DL My Orders Orders - FLOYD,LEATHA L DO Chest 1 View, Ap/Pa Only (05/14/23 09:56) Bnp [facility] [place] (05/14/23 09:56) Cbc And Automated Diff (05/14/23 09:56) Comprehensive Metabolic Panel (05/14/23 09:56) Magnesium (05/14/23 09:56) Ipratropium/Albuterol Inh Soln (Ipratrop (05/14/23 10:00) Svn Small Volume Nebulizer (05/14/23 09:56) Ekg Tracing (05/14/23 09:59) O2 (05/14/23 09:59) Monitor-Rhythm Ecg Trace Only (05/14/23 09:59) Troponin I [facility] (05/14/23 09:59) Manual Differential (05/14/23 10:00) Methylprednisolone Sod Succ (Methylpredn (05/14/23 11:15) Medications Given in ED Current Medications Medications Dose Ordered Sig/Sherly Route Start Time Stop Time Status Last Admin Dose Admin Albuterol/ Ipratropium 3 ml ONCE ONCE INH 05/14/23 10:00 05/14/23 10:01 DC 05/14/23 10:22 3 ML Methylprednisolone Sodium Succinate 80 mg ONCE ONCE IV 05/14/23 11:15 05/14/23 11:16 DC 05/14/23 12:02 80 MG Vital Signs/I&O 05/14/23 05/14/23 05/14/23 05/14/23 09:46 09:46 10:22 12:19 Pulse 72 75 Resp 16 16 B/P (MAP) 178/81 (113) 164/74 Pulse Ox 76 95 96 92 O2 Delivery Nasal Cannula Nasal Cannula Nasal Cannula Nasal Cannula O2 Flow Rate 2.00 5.00 3.00 3.00 3.00 Progress Progress Note : Progress Note Patient is feeling significantly better following treatment and we are were able to wean her back to her baseline oxygen. I will start her on azithromycin and steroids to treat her for COPD exacerbation. Also prescribe her an albuterol inhaler which she should use every 4 hours for the next 24 hours while awake. She should follow-up with her primary care provider in a couple days for recheck. She is stable and discharged home Initial ECG Impression Date: May 14, 2023 Initial ECG Impression Time: 10:03 Initial ECG Rate: 77 Initial ECG Rhythm: Normal Sinus Initial ECG Impression: Nonspecific Changes Comment No acute ST changes or elevation noted Diagnostic Imaging Diagonstic Imaging: Xray Plain Films/CT/US/NM/MRI: chest Comments Date of Exam:05/14/23 CHEST 1 VIEW, AP/PA ONLY INDICATION: Shortness of breath Portable chest 10:24 AM There are alveolar nodular infiltrates in both lungs. There are no effusions or pneumothoraces. Heart size is normal. There is pulmonary vascular congestion. IMPRESSION: Pulmonary vascular congestion. Diffuse alveolar infiltrates could be inflammatory versus pulmonary edema. Departure Impression Primary Impression: COPD exacerbation Disposition: 01 HOME, SELF-CARE Condition: Stable Departure-Patient Inst. Referrals: DEMETRIA VANN MD (PCP/Family) Primary Care Physician Patient Instructions: COPD Exacerbation, Adult ED Add. Discharge Instructions: Please use the inhaler every 4 hours for the next 24 hours while you are awake then as needed. Please start the azithromycin today and prednisone tomorrow. Please follow-up with your primary care provider in a couple days for recheck of your symptoms. Scripts Albuterol Sulfate (VENTOLIN HFA) 1 Puff Puff 2 PUFF INH Q4H PRN for SHORTNESS OF BREATH, #1 EA 1 PUFF = 90 MCG Prov: LEATHA FLOYD DO 05/14/23 Prednisone (Prednisone) 20 Mg Tab 40 MG PO DAILY, #6 TAB 0 Refills Prov: LEATHA FLOYD DO 05/14/23 Azithromycin (Azithromycin) 250 Mg Tablet 250 MG PO UD, #6 TAB TAKE 2 TABLETS ON DAY ONE THEN TAKE 1 TABLET DAILY FOR FOUR MORE DAYS Prov: LEATHA FLOYD DO 05/14/23 LEATHA FLOYD DO May 14, 2023 09:50
[2023-05-14] MEDS ORDERED: RT-Ipratropium/Albuterol NEB 3 ML VIAL INH ONE (10:00)
[2023-05-14 10:14] LABS: BASOPHILS % (AUTO) 0 % (0-10); EOSINOPHILS # (AUTO) 0.1 10^3/uL (0.0-0.3); EOSINOPHILS % (AUTO) 1 % (0-10); HEMATOCRIT 37 % (35-52); HEMOGLOBIN 11.8 g/dL (11.5-16.0); LYMPHOCYTES # (AUTO) 0.6 10^3/uL (1.0-4.0); LYMPHOCYTES % (AUTO) 5 % (12-44); MEAN CORPUSCULAR HEMOGLOBIN 33 pg (25-34); MEAN CORPUSCULAR HGB CONC 32 g/dL (32-36); MEAN CORPUSCULAR VOLUME 101 fL (80-99); MEAN PLATELET VOLUME 10.8 fL (9.0-12.2); MONOCYTES # (AUTO) 0.7 10^3/uL (0.0-1.0); MONOCYTES % (AUTO) 6 % (0-12); NEUTROPHILS % (AUTO) 87 % (42-75); PLATELET COUNT 187 10^3/uL (130-400); WHITE BLOOD COUNT 11.5 10^3/uL (4.3-11.0)
[2023-05-14 10:21] LABS: ALBUMIN 3.7 GM/DL (3.2-4.5); CHLORIDE 101 MMOL/L (98-107); POTASSIUM 4.1 MMOL/L (3.6-5.0); SODIUM 139 MMOL/L (135-145)
[2023-05-14 10:22] LABS: CALCIUM 9.8 MG/DL (8.5-10.1)
[2023-05-14 10:23] LABS: GLUCOSE 110 MG/DL (70-105); TOTAL PROTEIN 6.8 GM/DL (6.4-8.2)
[2023-05-14 10:24] LABS: CARBON DIOXIDE 28 MMOL/L (21-32)
[2023-05-14 10:25] LABS: BILIRUBIN,TOTAL 0.7 MG/DL (0.1-1.0)
[2023-05-14 10:27] LABS: ALKALINE PHOSPHATASE 81 U/L (40-136); CREATININE SERUM 0.94 MG/DL (0.60-1.30); GFR ESTIMATED 63
[2023-05-14 10:28] LABS: BUN/CREATININE RATIO 16
--- NOTE | 2023-05-14 10:29 | Diagnostic Imaging Report ---
INDICATION: Shortness of breath Portable chest 10:24 AM There are alveolar nodular infiltrates in both lungs. There are no effusions or pneumothoraces. Heart size is normal. There is pulmonary vascular congestion. IMPRESSION: Pulmonary vascular congestion. Diffuse alveolar infiltrates could be inflammatory versus pulmonary edema. Dictated by: Dictated on workstation # [id number]
[2023-05-14 10:30] LABS: ALANINE AMINOTRANSFERASE 12 U/L (0-55); EOSINOPHILS % (MANUAL) 1 %; LYMPHOCYTES % (MANUAL) 6 %; MAGNESIUM 1.7 MG/DL (1.6-2.4); MONOCYTES % (MANUAL) 4 %; NEUTROPHILS % (MANUAL) 89 %; STOMATOCYTES SLIGHT
[2023-05-14] MEDS ORDERED: methylPREDNISolone INJ 40 MG/ML VIAL IV ONE (11:15)
[2023-05-14] MEDS ORDERED: RT-ALBUINH INH (12:07)
[2023-05-14] MEDS ORDERED: AZIT250T12 PO (12:07)
[2023-05-14] MEDS ORDERED: PRD20T PO (12:07)
[2023-05-14 12:19] VITALS: BP 164/74
== END 2023-05-14 12:32 | disposition home or self-care (01) ==
LOC: EDUNIT# 09:46 → ER 09:49
DX: J44.9 Chronic obstructive pulmonary disease, unspecified (principal); E66.9 Obesity, unspecified; Z99.81 Dependence on supplemental oxygen; Z88.0 Allergy status to penicillin; Z68.41 Body mass index [BMI] 40.0-44.9, adult
CPT/HCPCS: 36415; 71045; 80053; 83735; 83880; 84484; 85007; 85027; 93005; 93041; 94640; 96374

== ENCOUNTER → 2023-05-22 | Outpatient (CLI) | payer MEDICARE ==
[~2023-05-22] MED LIST changes: +AZIT250T12 PO; +PRD20T PO; +RT-ALBUINH INH
[2023-05-22 16:57] LABS: BILIRUBIN,URINE NEGATIVE (NEGATIVE); CLARITY,URINE SL CLOUDY; COLOR,URINE YELLOW; GLUCOSE, URINE (UA) NEGATIVE (NEGATIVE); KETONES,URINE NEGATIVE (NEGATIVE); LEUKOCYTE ESTERASE ,URINE NEGATIVE (NEGATIVE); NITRITE,URINE POSITIVE (NEGATIVE); PH,URINE 7.5 (5-9); PROTEIN,URINE 1+ (NEGATIVE)
[2023-05-22 17:00] LABS: BACTERIA,URINE LARGE /HPF
== END ==
LOC: PVFS 15:25
PROVIDERS: ATTEND Family Medicine
DX: M54.50 Low back pain, unspecified (principal); R30.0 Dysuria
CPT/HCPCS: 81000; 87088

== ENCOUNTER → 2023-05-29 | Outpatient (CLI) | payer MEDICARE ==
[2023-05-29 12:23] LABS: BASOPHILS % (AUTO) 0 % (0-10); EOSINOPHILS # (AUTO) 0.2 10^3/uL (0.0-0.3); EOSINOPHILS % (AUTO) 2 % (0-10); HEMATOCRIT 39 % (35-52); HEMOGLOBIN 12.4 g/dL (11.5-16.0); LYMPHOCYTES # (AUTO) 0.9 10^3/uL (1.0-4.0); LYMPHOCYTES % (AUTO) 7 % (12-44); MEAN CORPUSCULAR HEMOGLOBIN 32 pg (25-34); MEAN CORPUSCULAR HGB CONC 32 g/dL (32-36); MEAN CORPUSCULAR VOLUME 100 fL (80-99); MEAN PLATELET VOLUME 10.5 fL (9.0-12.2); MONOCYTES # (AUTO) 0.8 10^3/uL (0.0-1.0); MONOCYTES % (AUTO) 6 % (0-12); NEUTROPHILS # (AUTO) 10.6 10^3/uL (1.8-7.8); NEUTROPHILS % (AUTO) 84 % (42-75); PLATELET COUNT 194 10^3/uL (130-400); WHITE BLOOD COUNT 12.6 10^3/uL (4.3-11.0)
[2023-05-29 12:42] LABS: EOSINOPHILS % (MANUAL) 1 %; LYMPHOCYTES % (MANUAL) 5 %; MONOCYTES % (MANUAL) 5 %; NEUTROPHILS % (MANUAL) 89 %
[2023-05-29 12:43] LABS: RBC MORPH NORMAL
--- NOTE | 2023-05-29 12:45 | Diagnostic Imaging Report ---
Indication: Shortness of air, cough, dyspnea. Comparison: 05/14/2023 Findings: There are 5 lobe patchy infiltrates and while substantial have mildly improved in the interim. A retrocardiac hernia stable and chronic. Pleural fluid is resolved or significantly decreased. Impression: Improvements in 5 lobe infiltrates decreased if not resolved pleural fluid, chronic hiatal hernia. No adverse change. Dictated by: Dictated on workstation # [id number]
[2023-05-29 12:59] LABS: ALBUMIN 3.5 GM/DL (3.2-4.5); BILIRUBIN,TOTAL 0.6 MG/DL (0.1-1.0); CALCIUM 9.7 MG/DL (8.5-10.1); CREATININE SERUM 1.06 MG/DL (0.60-1.30); POTASSIUM 4.5 MMOL/L (3.6-5.0); TOTAL PROTEIN 6.9 GM/DL (6.4-8.2)
== END ==
LOC: LAB FS 12:07
PROVIDERS: ATTEND Family Medicine
DX: K44.9 Diaphragmatic hernia without obstruction or gangrene (principal); R05.2 Subacute cough; R06.02 Shortness of breath
CPT/HCPCS: 36415; 71046; 80053; 83880; 85007; 85025; 85027

== ENCOUNTER 2023-06-22 10:31 | Emergency (ER) | payer MEDICARE ==
[2023-06-22] MEDS ORDERED: NS IV 500 ML 500 ML IV STA (10:38)
[2023-06-22] MEDS ORDERED: cefTRIAXone IV/IM 1,000 MG in NS (IVPB) 50 ML 50 ML IV ONE (10:45)
[2023-06-22] MEDS ORDERED: dexAMETHasone INJ 10 MG/ML 1 ML VIAL IV ONE (10:45)
[2023-06-22] MEDS ORDERED: RT-Ipratropium/Albuterol NEB 3 ML VIAL IH ONE (10:45)
[2023-06-22 10:47] LABS: BASOPHILS % (AUTO) 0 % (0-10); EOSINOPHILS # (AUTO) 0.1 10^3/uL (0.0-0.3); EOSINOPHILS % (AUTO) 1 % (0-10); HEMATOCRIT 35 % (35-52); HEMOGLOBIN 11.6 g/dL (11.5-16.0); LYMPHOCYTES # (AUTO) 0.7 10^3/uL (1.0-4.0); LYMPHOCYTES % (AUTO) 8 % (12-44); MEAN CORPUSCULAR HEMOGLOBIN 33 pg (25-34); MEAN CORPUSCULAR HGB CONC 33 g/dL (32-36); MEAN CORPUSCULAR VOLUME 99 fL (80-99); MEAN PLATELET VOLUME 11.9 fL (9.0-12.2); MONOCYTES # (AUTO) 0.5 10^3/uL (0.0-1.0); MONOCYTES % (AUTO) 6 % (0-12); NEUTROPHILS # (AUTO) 7.2 10^3/uL (1.8-7.8); NEUTROPHILS % (AUTO) 85 % (42-75); PLATELET COUNT 139 10^3/uL (130-400); WHITE BLOOD COUNT 8.5 10^3/uL (4.3-11.0)
--- NOTE | 2023-06-22 10:56 | ED Respiratory ---
General Chief Complaint: Respiratory Problems Stated Complaint: SOB Nursing Triage Note: PT REPORTS SHE HAS HAD SOB FOR A COUPLE MONTHS SINCE HAVING COVID. SHE ALSO REPORTS A COUGH WITH DRAINAGE IN THE BACK OF HER THROAT. Source: patient, EMS, [place] [facility] records Exam Limitations: no limitations History of Present Illness Date Seen by Provider: Jun 22, 2023 Time Seen by Provider: 10:32 Initial Comments 77-year-old female with past medical history of chronic hypoxic respiratory failure on roughly 2 L oxygen, COPD, A-fib coming in via EMS from her assisted living due to shortness of breath. She has been feeling short of breath for months since having COVID. She reports an increasing productive cough with drainage over the past few days as well. Denies any fever, chills, body aches, chest pain, abdominal pain, nausea, vomiting, diarrhea, focal weakness or numbness, or any other concerns. She has not had a breathing treatment today as of yet. Something similar happened about a month ago and she was on steroids which did help she states. Allergies and Home Medications Allergies Coded Allergies: Penicillins (Verified Allergy, Unknown, 06/10/19) adhesive tape (Verified Allergy, Unknown, 06/10/19) amoxicillin (Verified Allergy, Unknown, 06/10/19) celecoxib (Verified Allergy, Unknown, 06/10/19) dapsone (Verified Allergy, Unknown, 06/10/19) succinylcholine (Verified Allergy, Unknown, 06/10/19) Patient Home Medication List Home Medication List Reviewed: Yes Albuterol Sulfate (Ventolin Hfa) 1 Puff Puff, 2 PUFF INH Q4H PRN for SHORTNESS OF BREATH Prescribed by: LEATHA FLOYD on 05/14/23 1207 Allopurinol (Allopurinol) 100 Mg Tablet, 100 MG PO DAILY, (Reported) Entered as Reported by: PEDRO PIERRE on 03/28/22 1434 Alprazolam (Xanax) 0.25 Mg Tablet, 0.25 MG PO BID PRN for ANXIETY, (Reported) Entered as Reported by: PEDRO PIERRE on 11/07/22 1154 Amiodarone HCl (Amiodarone HCl) 200 Mg Tablet, 200 MG PO DAILY, (Reported) Entered as Reported by: PEDRO PIERRE on 11/07/22 1154 Apixaban (Eliquis) 5 Mg Tablet, 5 MG PO BID, (Reported) Entered as Reported by: PEDRO PIERRE on 11/07/22 1154 Azithromycin (Azithromycin) 250 Mg Tablet, 250 MG PO UD Prescribed by: LEATHA FLOYD on 05/14/23 1207 Cefdinir (Cefdinir) 300 Mg Capsule, 300 MG PO BID Prescribed by: SUSAN ROLDAN on 06/22/23 1243 Cyanocobalamin (Vitamin B-12) (Vitamin B-12) 500 Mcg Tablet, 500 MCG PO DAILY, (Reported) Entered as Reported by: PEDRO PIERRE on 11/07/22 115 Diltiazem HCl (Diltiazem ER) 180 Mg Capsule.er, 180 MG PO DAILY, (Reported) Entered as Reported by: PEDRO PIERRE on 11/07/22 115 Doxycycline Hyclate (Doxycycline Hyclate) 100 Mg Tablet, 100 MG PO BID Prescribed by: SUSAN ROLDAN on 06/22/23 124 Duloxetine HCl (Duloxetine HCl) 60 Mg Capsule.dr, 60 MG PO DAILY, (Reported) Entered as Reported by: PEDRO PIERRE on 03/28/22 1434 Furosemide (Furosemide) 40 Mg Tablet, 20-40 MG PO DAILY, (Reported) Entered as Reported by: PEDRO PIERRE on 11/07/22 115 Ipratropium/Albuterol Sulfate (Iprat-Albut 0.5-3(2.5) mg/3 ml) 0.5 Mg-3 Mg (2.5 Mg Base)/3 Ml Ampul.neb, 3 ML IH Q4H PRN for SHORTNESS OF BREATH Prescribed by: SUSAN ROLDAN on 06/22/23 1243 Melatonin (Melatonin) 3 Mg Tablet, 6 MG PO HS PRN for SLEEP, (Reported) Entered as Reported by: PEDRO PIERRE on 11/07/22 115 Methylprednisolone (Methylprednisolone Dose Pack) 4 Mg Tab.ds.pk, 4 MG PO UD Prescribed by: SUSAN ROLDAN on 06/22/23 1243 Metoprolol Succinate (Metoprolol Succinate) 50 Mg Tab.er.24h, 25 MG PO BID, (Reported) Entered as Reported by: PEDRO PIERRE on 11/07/22 115 Prednisone (Prednisone) 20 Mg Tab, 40 MG PO DAILY Prescribed by: LEATHA FLOYD on 05/14/23 1207 Ramipril (Ramipril) 10 Mg Capsule, 10 MG PO DAILY, (Reported) Entered as Reported by: PEDRO PIERRE on 03/28/22 1434 Review of Systems Review of Systems Constitutional: No fever EENTM: no symptoms reported Respiratory: see HPI Cardiovascular: no symptoms reported Gastrointestinal: no symptoms reported Genitourinary: no symptoms reported Musculoskeletal: no symptoms reported Skin: no symptoms reported Psychiatric/Neurological: No Symptoms Reported Hematologic/Lymphatic: No Symptoms Reported Past Msbmlgk-Jgrhaf-Wgfhpd Hx Immunizations Up To Date Tetanus Booster (TDap): More than 5yrs Influenza Vaccine Up-to-Date: Yes; Up-to-Date First/Initial COVID19 Vaccinat: Y Second COVID19 Vaccination Nehemiah: Y Third COVID19 Vaccination Date: Y Seasonal Allergies Seasonal Allergies: No Past Medical History Surgery/Hospitalization HX: COPD, A-fib, CHF Surgeries: Yes (bilateral knee replacements, carpal tunnel) Abdominal, Gallbladder, Hysterectomy, Orthopedic Respiratory: Yes COPD Cardiac: Yes (CHF) Cardiomyopathy, Coronary Artery Disease, Hypertension 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 oz. kg; 40.02 BMI Method: General Appearance: WD/WN, no apparent distress Eyes: Bilateral Eye Normal Inspection HEENT: PERRL/EOMI, normal ENT inspection, pharynx normal Neck: non-tender, full range of motion, supple, normal inspection Respiratory: chest non-tender, no respiratory distress, no accessory muscle use Cardiovascular: regular rate, rhythm, no edema, other (normal peripheral pulses) Gastrointestinal: normal bowel sounds, non tender, soft Extremities: normal range of motion, non-tender, normal inspection, no pedal ed lindsay, no calf tenderness Neurologic/Psychiatric: no motor/sensory deficits, alert, normal mood/affect, oriented x 3 Skin: normal color, warm/dry Progress/Results/Core Measures Suspected Sepsis SIRS Temperature: Pulse: 120 Respiratory Rate: 18 Laboratory Tests 06/22/23 10:38: White Blood Count 8.5 Blood Pressure 147 /89 Mean: 108 Laboratory Tests 06/22/23 10:38: Creatinine 0.95, INR Comment 1.0, Platelet Count 139, Total Bilirubin 0.8 Results/Orders Lab Results Laboratory Tests Test 06/22/23 10:38 06/22/23 10:48 06/22/23 10:50 Range/Units White Blood Count 8.5 4.3-11.0 10^3/uL Red Blood Count 3.56 L 3.80-5.11 10^6/uL Hemoglobin 11.6 11.5-16.0 g/dL Hematocrit 35 35-52 % Mean Corpuscular Volume 99 80-99 fL Mean Corpuscular Hemoglobin 33 25-34 pg Mean Corpuscular Hemoglobin Concent 33 32-36 g/dL Red Cell Distribution Width 15.0 H 10.0-14.5 % Platelet Count 139 130-400 10^3/uL Mean Platelet Volume 11.9 9.0-12.2 fL Immature Granulocyte % (Auto) 0 % Neutrophils (%) (Auto) 85 H 42-75 % Lymphocytes (%) (Auto) 8 L 12-44 % Monocytes (%) (Auto) 6 0-12 % Eosinophils (%) (Auto) 1 0-10 % Basophils (%) (Auto) 0 0-10 % Neutrophils # (Auto) 7.2 1.8-7.8 10^3/uL Lymphocytes # (Auto) 0.7 L 1.0-4.0 10^3/uL Monocytes # (Auto) 0.5 0.0-1.0 10^3/uL Eosinophils # (Auto) 0.1 0.0-0.3 10^3/uL Basophils # (Auto) 0.0 0.0-0.1 10^3/uL Immature Granulocyte # (Auto) 0.0 0.0-0.1 10^3/uL Neutrophils % (Manual) 89 % Lymphocytes % (Manual) 7 % Monocytes % (Manual) 4 % Prothrombin Time 13.6 12.2-14.7 SEC INR Comment 1.0 0.8-1.4 Activated Partial Thromboplast Time 25 24-35 SEC Sodium Level 134 L 135-145 MMOL/L Potassium Level 6.0 H 3.6-5.0 MMOL/L Chloride Level 100 98-107 MMOL/L Carbon Dioxide Level 26 21-32 MMOL/L Anion Gap 8 5-14 MMOL/L Blood Urea Nitrogen 19 H 7-18 MG/DL Creatinine 0.95 0.60-1.30 MG/DL Estimat Glomerular Filtration Rate 62 BUN/Creatinine Ratio 20 Glucose Level 105 70-105 MG/DL Calcium Level 9.3 8.5-10.1 MG/DL Corrected Calcium 9.9 8.5-10.1 MG/DL Total Bilirubin 0.8 0.1-1.0 MG/DL Aspartate Amino Transf (AST/SGOT) 28 5-34 U/L Alanine Aminotransferase (ALT/SGPT) 16 0-55 U/L Alkaline Phosphatase 93 40-136 U/L Troponin I < 0.30 <0.30 NG/ML Pro-B-Type Natriuretic Peptide 4462.0 H <450.0 PG/ML Total Protein 6.9 6.4-8.2 GM/DL Albumin 3.3 3.2-4.5 GM/DL Venous Blood pH 7.44 H 7.31-7.41 Venous Blood Partial Pressure CO2 44 40-52 MMHG Venous Blood HCO3 30 H 22-28 MMOL/L Influenza Type A (RT-PCR) Not Detected Not Detecte Influenza Type B (RT-PCR) Not Detected Not Detecte SARS-CoV-2 RNA (RT-PCR) Not Detected Not Detecte My Orders Orders - SUSAN ROLDAN MD Cbc And Automated Diff (06/22/23 10:38) Comprehensive Metabolic Panel (06/22/23 10:38) Protime With Inr (06/22/23 10:38) Partial Thromboplastin Time (06/22/23 10:38) Probnp Fs (06/22/23 10:38) Troponin I Fs (06/22/23 10:38) Ed Iv/Invasive Line Start (06/22/23 10:38) Ekg Tracing (06/22/23 10:38) Monitor-Rhythm Ecg Trace Only (06/22/23 10:38) Influenza A And B By Pcr (06/22/23 10:38) Covid 19 Inhouse Test (06/22/23 10:38) Chest 1 View Ap/Pa Only (06/22/23 10:38) Ipratropium/Albuterol Inh Soln (Ipratrop (06/22/23 10:45) Ceftriaxone Iv/Im (Ceftriaxone Iv/Im) (06/22/23 10:45) Doxycycline Hyclate Tablet (Doxycycline (06/22/23 10:45) Venous Blood Gas (06/22/23 10:38) Dexamethasone Injection (Dexamethasone (06/22/23 10:45) Ns Iv 500 Ml (Ns Iv 500 Ml) (06/22/23 10:38) Manual Differential (06/22/23 10:38) Ct Angio Chest W (R/O Pe) (06/22/23 11:39) Iohexol Injection (Omnipaque 350 Mg/Ml 1 (06/22/23 11:45) Received Contrast (Hold Metformin- Contr (06/22/23 11:45) Ns (Ivpb) 100 Ml (Sodium Chloride 0.9% 1 (06/22/23 11:45) Medications Given in ED Current Medications Medications Dose Ordered Sig/Sherly Route Start Time Stop Time Status Last Admin Dose Admin Albuterol/ Ipratropium 3 ml ONCE ONCE IH 06/22/23 10:45 06/22/23 10:46 DC 06/22/23 10:58 3 ML Ceftriaxone Sodium 1000 mg/ Sodium Chloride 50 ml @ 100 mls/hr ONCE ONCE IV 06/22/23 10:45 06/22/23 11:14 DC 06/22/23 10:57 100 MLS/HR Dexamethasone Sodium Phosphate 8 mg ONCE ONCE IV 06/22/23 10:45 06/22/23 10:46 DC 06/22/23 10:57 8 MG Doxycycline Hyclate 100 mg ONCE ONCE PO 06/22/23 10:45 06/22/23 10:46 DC 06/22/23 10:57 100 MG Iohexol 100 ml ONCE ONCE IV 06/22/23 11:45 06/22/23 11:51 DC 06/22/23 12:17 90 ML Sodium Chloride 100 ml ONCE ONCE IV 06/22/23 11:45 06/22/23 11:51 DC 06/22/23 12:18 80 ML Vital Signs/I&O 06/22/23 06/22/23 10:31 10:31 Temp 37.3 Pulse 120 Resp 18 B/P (MAP) 147/89 (108) O2 Delivery Nasal Cannula Room Air O2 Flow Rate 2.00 2.00 Capillary Refill : Less Than 3 Seconds Blood Pressure Mean: 108 Progress Note : Progress Note 77-year-old female with above history coming in due to shortness of breath. ABCs were intact and vitals were stable on presentation on her baseline 2 L oxygen. She is in A-fib, but mostly rate controlled less than 100. EKG ordered and interpreted by me showing no acute ischemic changes. An IV was placed and basic labs were obtained and were significant for normal hemoglobin, normal white blood cell count, normal creatinine, negative troponin, elevated proBNP, pH 7.44, elevated potassium but the lab is hemolyzed. No clinical signs of hyperkalemia. Chest x-ray ordered and interpreted by me showing bilateral lung infiltrates, appears similar to prior, may be slightly better. The radiologist recommended a CT which showed no PE, did have inflammatory infiltrates. Will treat her with antibiotics here as well as steroids. She also got a DuoNeb and feels better after that. Sent a prescription for the same as well as gave her a nebulizer with a prescription for DuoNeb. I discussed that I would like her to follow-up with a private equity associate for repeat evaluation and to be sure she does not have any other diagnoses. I believe she is stable for discharge with outpatient follow-up. She was sent home with strict return precautions. ECG Initial ECG Impression Date: Jun 22, 2023 Initial ECG Impression Time: 11:33 Initial ECG Rate: 106 Initial ECG Rhythm: A Fib/Flutter Comment Wide QRS with a left bundle branch block, left axis deviation, no STEMI Diagnostic Imaging Diagonstic Imaging: Xray (chest), CT (CTA chest) Comments [facility], [place] NAME: NOEMÍ MASTERSON [facility] REC#: [id number] PT STATUS: REG ER : 1945 PHYSICIAN: SUSAN ROLDAN MD ADMIT DATE: 06/22/23/ER FS Draft Date of Exam:06/22/23 CHEST 1 VIEW AP/PA ONLY CLINICAL INDICATION: Patient with shortness of breath. EXAM: Portable chest x-ray semi-upright view. COMPARISON: Chest x-ray dated 05/14/2023. FINDINGS: Lungs/pleura: There is slight improved aeration of both lungs. There are extensive diffuse bilateral lung infiltrates again noted which is slightly decreased concerning for pneumonia. There appear to be some nodular areas involving both lungs. There is no pneumothorax. There is no pleural effusion. Mediastinum: Unremarkable. Pulmonary vasculature: Unremarkable. Heart: There is cardiomegaly. Bones/extrathoracic soft tissue: There are degenerative spurs involving the thoracic spine. There is reverse left total shoulder arthroplasty seen. IMPRESSION: 1: There is diffuse bilateral patchy lung infiltrates which has slightly improved. These findings may be related to pneumonia. Superimposed lung nodules cannot be completely excluded. CT scan of the chest would better evaluate. 2: There is cardiomegaly with no significant pulmonary vascular congestion. Dictated on workstation # [id number] Dict: 06/22/23 1115 Trans: 06/22/23 1121 CV [id number] Interpreted by: ANDREI OCONNOR MD Electronically signed by: NAME: NOEMÍ MASTERSON [facility] REC#: [id number] PT STATUS: REG ER : 1945 PHYSICIAN: SUSAN ROLDAN MD ADMIT DATE: 06/22/23/ER FS Draft Date of Exam:06/22/23 CT ANGIO CHEST W (R/O PE) INDICATION: Hypoxia. TECHNIQUE: CTA chest obtained with IV contrast bolus and axial slices and sagittal and coronal MIP reconstructions. Dose-reduction protocol was used. COMPARISON: There is no previous study for comparison. CT CHEST FINDINGS: The pulmonary parenchymal vessels are well opacified with no CT evidence of pulmonary emboli. The thoracic aorta shows no dissection or aneurysm. Great vessel origins are patent. There is a mildly prominent node to the left of the aortic arch and mediastinum measuring about 2.1 x 1.2 cm. There are a few other mildly prominent nodes in the mediastinum and manuel. There are no enlarged axillary nodes. Visualized portions of the upper abdomen show no acute finding. There are whfbn-xa-rhjsjawr bilateral pleural effusions. There is no significant pericardial fluid. A large hiatal hernia is incidentally noted. There is a watchman device in the left atrial appendage. There are patchy mixed interstitial and alveolar infiltrates throughout both lungs with some peribronchial thickening. Inflammatory process such as pneumonia is favored. No discrete pulmonary mass is seen. IMPRESSION: No CT evidence of pulmonary emboli or acute aortic pathology. There are some mildly prominent nodes in the mediastinum and manuel which may be reactive. There are weaey-[id number] bilateral pleural effusions. There is a large hiatal hernia. There are diffuse mixed interstitial and alveolar infiltrates and peribronchial thickening throughout both lungs. Inflammatory process is favored. Suggest follow-up as clinically warranted. Dictated on workstation # [id number] Dict: 06/22/23 1219 Trans: 06/22/23 1231 AS6 [id number] Interpreted by: ERLIN BARNARD MD Electronically signed by: Departure Impression Primary Impression: Pneumonitis Additional Impression: COPD exacerbation Disposition: HOME, SELF-CARE Condition: Stable Departure-Patient Inst. Decision time for Depature: 12:45 Referrals: DEMETRIA VANN MD (PCP/Family) Primary Care Physician Patient Instructions: COPD Exacerbation, Adult ED Add. Discharge Instructions: If you do not have a private equity associate, we think it would be good to follow-up with 1 see if there are any medications that they could optimize for you or any special testing you may want. Continue your oxygen, steroids and antibiotics will be sent to your pharmacy as well. Follow back up with your doctor if you are not feeling better within roughly a week. Scripts Ipratropium/Albuterol Sulfate (Iprat-Albut 0.5-3(2.5) mg/3 ml) 0.5 Mg-3 Mg (2.5 Mg Base)/3 Ml Ampul.neb 3 ML IH Q4H PRN for SHORTNESS OF BREATH for 30 Days, #120 EACH Prov: SUSAN ROLDAN MD 06/22/23 Methylprednisolone (Methylprednisolone Dose Pack) 4 Mg Tab.ds.pk 4 MG PO UD for 6 Days, #21 PKG PER DOSE PACK INSTRUCTIONS Prov: SUSAN ROLDAN MD 06/22/23 Cefdinir (Cefdinir) 300 Mg Capsule 300 MG PO BID for 7 Days, #14 CAP 0 Refills Prov: SUSAN ROLDAN MD 06/22/23 Doxycycline Hyclate (Doxycycline Hyclate) 100 Mg Tablet 100 MG PO BID for 7 Days, #14 TAB 0 Refills Prov: SUSAN ROLDAN MD 06/22/23 SUSAN ROLDAN MD Jun 22, 2023 10:56
[2023-06-22 10:57] LABS: PROTHROMBIN TIME PATIENT 13.6 SEC (12.2-14.7)
[2023-06-22 11:14] LABS: LYMPHOCYTES % (MANUAL) 7 %; MONOCYTES % (MANUAL) 4 %; NEUTROPHILS % (MANUAL) 89 %
[2023-06-22 11:15] LABS: ALANINE AMINOTRANSFERASE 16 U/L (0-55); ALBUMIN 3.3 GM/DL (3.2-4.5); ALKALINE PHOSPHATASE 93 U/L (40-136); BILIRUBIN,TOTAL 0.8 MG/DL (0.1-1.0); BUN/CREATININE RATIO 20; CALCIUM 9.3 MG/DL (8.5-10.1); CARBON DIOXIDE 26 MMOL/L (21-32); CHLORIDE 100 MMOL/L (98-107); CREATININE SERUM 0.95 MG/DL (0.60-1.30); GFR ESTIMATED 62; GLUCOSE 105 MG/DL (70-105); SODIUM 134 MMOL/L (135-145); TOTAL PROTEIN 6.9 GM/DL (6.4-8.2)
--- NOTE | 2023-06-22 11:22 | Diagnostic Imaging Report ---
CLINICAL INDICATION: Patient with shortness of breath. EXAM: Portable chest x-ray semi-upright view. COMPARISON: Chest x-ray dated 05/14/2023. FINDINGS: Lungs/pleura: There is slight improved aeration of both lungs. There are extensive diffuse bilateral lung infiltrates again noted which is slightly decreased concerning for pneumonia. There appear to be some nodular areas involving both lungs. There is no pneumothorax. There is no pleural effusion. Mediastinum: Unremarkable. Pulmonary vasculature: Unremarkable. Heart: There is cardiomegaly. Bones/extrathoracic soft tissue: There are degenerative spurs involving the thoracic spine. There is reverse left total shoulder arthroplasty seen. IMPRESSION: 1: There is diffuse bilateral patchy lung infiltrates which has slightly improved. These findings may be related to pneumonia. Superimposed lung nodules cannot be completely excluded. CT scan of the chest would better evaluate. 2: There is cardiomegaly with no significant pulmonary vascular congestion. Dictated by: Dictated on workstation # [id number]
[2023-06-22] MEDS ORDERED: NS 100 ML (IVPB) BAG IV ONE (11:45)
[2023-06-22] MEDS ORDERED: IOHEXOL 350 MG/ML 100 ML (OMNIPAQUE 350) VIAL IV ONE (11:45)
[2023-06-22] MEDS ORDERED: HOLD METFORMIN - RECEIVED CONTRAST 20 ML VIAL IV SCH (11:45)
--- NOTE | 2023-06-22 12:31 | Diagnostic Imaging Report ---
INDICATION: Hypoxia. TECHNIQUE: CTA chest obtained with IV contrast bolus and axial slices and sagittal and coronal MIP reconstructions. Dose-reduction protocol was used. COMPARISON: There is no previous study for comparison. CT CHEST FINDINGS: The pulmonary parenchymal vessels are well opacified with no CT evidence of pulmonary emboli. The thoracic aorta shows no dissection or aneurysm. Great vessel origins are patent. There is a mildly prominent node to the left of the aortic arch and mediastinum measuring about 2.1 x 1.2 cm. There are a few other mildly prominent nodes in the mediastinum and manuel. There are no enlarged axillary nodes. Visualized portions of the upper abdomen show no acute finding. There are mugfl-[id number]-rfbfwxzk bilateral pleural effusions. There is no significant pericardial fluid. A large hiatal hernia is incidentally noted. There is a watchman device in the left atrial appendage. There are patchy mixed interstitial and alveolar infiltrates throughout both lungs with some peribronchial thickening. Inflammatory process such as pneumonia is favored. No discrete pulmonary mass is seen. IMPRESSION: No CT evidence of pulmonary emboli or acute aortic pathology. There are some mildly prominent nodes in the mediastinum and manuel which may be reactive. There are ogthc-[id number] bilateral pleural effusions. There is a large hiatal hernia. There are diffuse mixed interstitial and alveolar infiltrates and peribronchial thickening throughout both lungs. Inflammatory process is favored. Suggest follow-up as clinically warranted. Dictated by: Dictated on workstation # [id number]
[2023-06-22] MEDS ORDERED: DOXY100T2 PO (12:43)
[2023-06-22] MEDS ORDERED: IPRA3AMP31 IH (12:43)
[2023-06-22] MEDS ORDERED: METH4TAB10 PO (12:43)
[2023-06-22] MEDS ORDERED: CEFD300C3 PO (12:43)
[2023-06-22 12:44] VITALS: BP 144/98
== END 2023-06-22 12:45 | disposition home or self-care (01) ==
LOC: EDUNIT# 10:31 → ER FS 10:32
DX: J98.4 Other disorders of lung (principal); J44.9 Chronic obstructive pulmonary disease, unspecified; I44.7 Left bundle-branch block, unspecified; R79.89 Other specified abnormal findings of blood chemistry; Z88.0 Allergy status to penicillin; Z88.1 Allergy status to other antibiotic agents
CPT/HCPCS: 36415; 71045; 71275; 80053; 82805; 83880; 84484; 85007; 85027; 85610; 85730; 87636; 93005; 93041; 94640; Q9967